=== PATIENT | female | born 1985 | race Hispanic/Latino ===

== ENCOUNTER 2020-02-19 22:52 | Emergency (ER) | payer SELFPAY ==
[2020-02-20] MEDS ORDERED: KETOROLAC 30 MG/ML INJ ONE (00:07)
[2020-02-20 00:11] LABS: Absolute Lymphocytes (CBC) 2.7 K/uL (0.7-4.9); Basophils % 0.5 % (0-1.3); Hematocrit 38.4 % (36.0-45.0); MPV 8.9 fL (7.6-11.3); RBC Red Blood Cell Count 4.06 M/uL (3.86-4.86)
[2020-02-20 00:12] LABS: Protime INR 0.93
[2020-02-20 00:50] LABS: ALT/SGPT 17 U/L (12-78); AST/SGOT 11 U/L (15-37); Albumin 3.6 g/dL (3.4-5.0); Alkaline Phosphatase 60 U/L (45-117); BUN Blood Urea Nitrogen 15 mg/dL (7-18); Bicarbonate 26 mmol/L (21-32); Bilirubin Direct < 0.1 mg/dL (0-0.2); Bilirubin Total 0.1 mg/dL (0.2-1.0); Glucose Level 109 mg/dL (74-106); Magnesium 2.2 mg/dL (1.8-2.4); Potassium 3.7 mmol/L (3.5-5.1); Protein, Total 6.7 g/dL (6.4-8.2); Sodium Level 142 mmol/L (136-145); Troponin (Emerg Dept Use Only) < 0.02 ng/mL (0.0-0.045)
[2020-02-20] MEDS ORDERED: dexAMETHasone 4 MG/ML VIAL ONE (00:53)
[2020-02-20] MEDS ORDERED: ALBUTEROL INHALER 60 PUFF/8 GM IH ONE (00:54)
--- NOTE | 2020-02-20 01:14 | ER ---
Nurse's Notes [facility] Name: Daina Ibrahim Age: 34 yrs Sex: Female : 1985 Arrival Date: 02/19/2020 Time: 22:57 Bed 6 Private MD: Diagnosis: Other chest pain;Acute upper respiratory infection, unspecified Presentation: 02/18 23:09 Chief complaint: Patient states: C/O Sore throat, chest pressure and tightness, cough, wh body aches and hot and cold flushes since wednesday. Coronavirus screen: Client denies travel out of the [place] in the last 14 days. cough unrelated to allergies, sore throat, Client presents with at least one sign or symptom that may indicate coronavirus-19. Standard/surgical mask placed on the client. Ebola Screen: Patient negative for fever greater than or equal to 101.5 degrees Fahrenheit, and additional compatible Ebola Virus Disease symptoms Patient denies exposure to infectious person. Initial Sepsis Screen: Does the patient meet any 2 criteria? No. Patient's initial sepsis screen is negative. Does the patient have a suspected source of infection? Yes: Productive cough/pneumonia. Risk Assessment: Do you want to hurt yourself or someone else? Patient reports no desire to harm self or others. Onset of symptoms was February 19, 2020. 23:09 Method Of Arrival: Ambulatory 23:09 Acuity: KARO 3 [employer]: 23:14 LMP 02/19/2020 Historical: - Allergies: 23:13 Oranges; - Home Meds: 23:13 None [Active]; - PMHx: 23:13 None; - PSHx: 23:13 ; - Immunization history:: Adult Immunizations up to date. - Social history:: Smoking status: Patient reports the use of cigarette tobacco products, smokes one-half pack cigarettes per day, Patient/guardian denies using alcohol. Screenin:14 Abuse screen: Denies threats or abuse. Denies injuries from another. Nutritional screening: No deficits noted. Tuberculosis screening: No symptoms or risk factors identified. Fall Risk None identified. Assessment: 23:13 General: Appears in no apparent distress. Behavior is calm, cooperative, appropriate for age. Pain: Complains of pain in chest Pain does not radiate. Pain currently is 6 out of 10 on a pain scale. Quality of pain is described as pressure, Pain began 2-3 days ago. Neuro: Level of Consciousness is awake, alert, obeys commands, Oriented to person, place, time, situation, Appropriate for age. Cardiovascular: Heart tones S1 S2. Respiratory: Reports cough that is Airway is patent Respiratory effort is even, unlabored, Respiratory pattern is regular, symmetrical, Breath sounds are clear bilaterally. GI: Abdomen is flat, non-distended. : No signs and/or symptoms were reported regarding the genitourinary system. EENT: Throat is pink. Derm: Skin is intact, is healthy with good turgor, Skin is pink, warm \T\ dry. normal. Musculoskeletal: Circulation, motion, and sensation intact. 02/19 00:30 Reassessment: Patient appears in no apparent distress at this time. No changes from previously documented assessment. Patient and/or family updated on plan of care and expected duration. Pain level reassessed. Patient is alert, oriented x 3, equal unlabored respirations, skin warm/dry/pink. 01:32 Reassessment: Patient appears in no apparent distress at this time. Patient and/or family updated on plan of care and expected duration. Pain level reassessed. Patient is alert, oriented x 3, equal unlabored respirations, skin warm/dry/pink. Vital Signs: 02/18 23:09 BP 108 / 67; Pulse 71; Resp 18; Temp 98.4; Pulse Ox 100% on R/A; Weight 73.48 kg; Height 5 ft. 5 in. (165.10 cm); Pain 6/10; 02/19 00:30 BP 109 / 68; Pulse 58; Resp 18; Pulse Ox 99% on R/A; 01:33 BP 105 / 68; Pulse 66; Resp 18; Pulse Ox 100% on R/A; 02/18 23:09 Body Mass Index 26.96 (73.48 kg, 165.10 cm) ED Course: 02/18 22:57 Patient arrived in ED. bp1 23:09 Radhames Madrid is Primary Nurse. wh 23:12 Triage completed. wh 23:14 Patient has correct armband on for positive identification. Bed in low position. Call light in reach. Side rails up X 1. manager integration on. Pulse ox on. NIBP on. 23:14 Arm band placed on right wrist. 23:29 Beto Robles PA is PHCP. cp 23:29 Maxwell Zazueta MD is Attending Physician. cp 23:50 Inserted saline lock: 20 gauge in right antecubital area, using aseptic technique. ds4 Blood collected. 02/19 00:12 XRAY Chest (1 view) In Process Unspecified. EDNH 01:33 No provider procedures requiring assistance completed. IV discontinued, intact, bleeding controlled, No redness/swelling at site. Administered Medications: 02/18 23:59 Drug: TORadol - Ketorolac 15 mg Route: IVP; Site: right antecubital; 02/19 01:34 Follow up: Response: No adverse reaction; Pain is decreased 00:45 Drug: Decadron - Dexamethasone 6 mg Route: IVP; Site: right antecubital; 01:34 Follow up: Response: No adverse reaction 00:45 Drug: Albuterol HFA Inhaler 2 puffs Route: Inhalation; Outcome: 01:13 Discharge ordered by . cp 01:33 Discharged to home ambulatory. 01:33 Condition: stable 01:33 Discharge instructions given to patient, Instructed on discharge instructions, follow up and referral plans. medication usage, POC Demonstrated understanding of instructions, follow-up care, medications, POC Prescriptions given X 4. 01:34 Patient left the ED. Addendum: 02/22/2020 12:00 Addendum: COVID-19 Result: Negative result given to RN to notify pt. Notified pt of a a5 negative COVID 19 swab results. Pt advised that even with a negative test result they should remain in isolation until symptom free for 3 days without medication. Pt also advised to return to the ED for worsening symptoms. Signatures: Dispatcher [employer] EDMS Job Vergara RN RN sg Calderon, Audri, RN RN Cristhian Llamas ds4 Beto Robles PA PA cp Habalo, Radhames Marilu Ramírez bp1
--- NOTE | 2020-02-20 01:14 | EDPHYS ---
Physician Documentation [facility] Name: Daina Ibrahim Age: 34 yrs Sex: Female : 1985 Arrival Date: 02/19/2020 Time: 22:57 Bed 6 Private MD: ED Physician Maxwell Zazueta HPI: 02/18 23:50 This 34 yrs old Female presents to ER via Ambulatory with complaints of Sore Throat, cp Chest Tightness, Chest Pressure. 23:50 The patient or guardian reports chest pain that is located primarily in the anterior cp chest and left lower chest. The pain radiates to back. 23:50 Associated signs and symptoms: Pertinent positives: cough, shortness of breath, sore cp throat, Pertinent negatives: abdominal pain, lower extremity pain, lower extremity swelling. The chest pain is described as tightness. Duration: The patient or guardian reports a single episode, that is still ongoing, and worsening. Modifying factors: the symptoms are aggravated by deep breath, movement, cough. CDC ASSOCIATE: 23:14 LMP 02/19/2020 Historical: - Allergies: 23:13 Oranges; - Home Meds: 23:13 None [Active]; - PMHx: 23:13 None; - PSHx: 23:13 ; - Immunization history:: Adult Immunizations up to date. - Social history:: Smoking status: Patient reports the use of cigarette tobacco products, smokes one-half pack cigarettes per day, Patient/guardian denies using alcohol. ROS: 23:55 Constitutional: Positive for body aches, chills, fatigue, Negative for fever, poor PO cp intake. 23:55 Eyes: Negative for injury, pain, redness, and discharge. cp 23:55 ENT: Positive for sore throat, Negative for drainage from ear(s), ear pain, difficulty swallowing, difficulty handling secretions. 23:55 Neck: Negative for pain with movement, pain at rest, stiffness. 23:55 Cardiovascular: Positive for chest pain, Negative for edema, palpitations. 23:55 Respiratory: Positive for cough, shortness of breath, on exertion. Negative for wheezing. 23:55 Abdomen/GI: Negative for abdominal pain, vomiting, diarrhea, constipation. 23:55 Back: Negative for radiated pain. 23:55 : Negative for urinary symptoms. 23:55 Neuro: Negative for altered mental status, headache, syncope, weakness. 23:55 All other systems are negative. Exam: 23:45 ECG was reviewed by the Attending Physician. cp 23:58 Constitutional: The patient appears in no acute distress, alert, awake, cp non-diaphoretic, non-toxic, well developed, well nourished, uncomfortable. 23:58 Head/Face: Normocephalic, atraumatic. cp 23:58 Eyes: Periorbital structures: appear normal, Conjunctiva: normal, no exudate, no injection, Sclera: no appreciated abnormality, Lids and lashes: appear normal, bilaterally. 23:58 ENT: External ear(s): are unremarkable, Ear canal(s): are normal, clear, TM's: bulging, is not appreciated, bilaterally, dullness, bilaterally, erythema, is not appreciated, bilaterally, Nose: is normal, Mouth: Lips: moist, Oral mucosa: moist, Posterior pharynx: Airway: no evidence of obstruction, patent, Tonsils: no enlargement, no exudate. 23:58 Neck: ROM/movement: is normal, is supple, without pain, no range of motions limitations, no meningismus. 23:58 Chest/axilla: Inspection: normal, Palpation: crepitus, is not appreciated, tenderness, of the left lateral chest wall below breast. 23:58 Cardiovascular: Rate: normal, Rhythm: regular, Heart sounds: murmur, not appreciated, Edema: is not appreciated, JVD: is not appreciated. 23:58 Respiratory: the patient does not display signs of respiratory distress, Respirations: normal, no use of accessory muscles, no retractions, labored breathing, is not present, Breath sounds: decreased breath sounds, are not appreciated, stridor, is not appreciated, wheezing: is not appreciated. 23:58 Abdomen/GI: Inspection: abdomen appears normal, Palpation: abdomen is soft and non-tender, in all quadrants. 23:58 Back: pain, is absent, ROM is normal. Vital Signs: 23:09 BP 108 / 67; Pulse 71; Resp 18; Temp 98.4; Pulse Ox 100% on R/A; Weight 73.48 kg; wh Height 5 ft. 5 in. (165.10 cm); Pain 6/10; 10/20 00:30 BP 109 / 68; Pulse 58; Resp 18; Pulse Ox 99% on R/A; 01:33 BP 105 / 68; Pulse 66; Resp 18; Pulse Ox 100% on R/A; 02/18 23:09 Body Mass Index 26.96 (73.48 kg, 165.10 cm) MDM: 02/18 23:38 Patient medically screened. 02/19 00:00 Differential diagnosis: abnormal EKG, acute myocardial infarction, acute pericarditis, cp chest wall pain, cholecystitis, Cholelithiasis costochondritis, pericarditis, pleurisy, pneumonia, pneumothorax, pulmonary embolus, COVID-19, influenza, strep. 01:12 Data reviewed: vital signs, nurses notes, lab test result(s), EKG, radiologic studies, cp plain films, and as a result, I will discharge patient. 01:12 Test interpretation: by ED physician or midlevel provider: ECG, chest xray negative for cp focal opacities. Counseling: I had a detailed discussion with the patient and/or guardian regarding: the historical points, exam findings, and any diagnostic results supporting the discharge/admit diagnosis, lab results, radiology results, the need for outpatient follow up, a family practitioner, to return to the emergency department if symptoms worsen or persist or if there are any questions or concerns that arise at home. Response to treatment: the patient's symptoms have markedly improved after treatment. ED course: VSS. Patient appears non-toxic and no signs of respiratory distress. Will discharge to home with instructions to quarantine while awaiting results of COVID-19 test. 02/18 23:41 Order name: Basic Metabolic Panel; Complete Time: 00:56 02/19 01:09 Interpretation: Normal except: CL 111; GLUC 109. cp 02/18 23:41 Order name: CBC with Diff; Complete Time: 00:33 cp 02/19 00:33 Interpretation: Reviewed. 02/18 23:41 Order name: LFT's; Complete Time: 00:56 02/19 01:09 Interpretation: Normal except: AST 11; BILIT 0.1. 02/18 23:41 Order name: Magnesium; Complete Time: 00:56 02/18 23:41 Order name: PT-INR; Complete Time: 01:09 cp 02/19 01:09 Interpretation: Reviewed. 02/18 23:41 Order name: Troponin (emerg Dept Use Only); Complete Time: 00:56 cp 02/19 01:10 Interpretation: Within normal limits: TROPED < 0.02. cp 02/18 23:41 Order name: COVID-19 cp 02/18 23:41 Order name: Influenza Screen (a \T\ B) cp 02/18 23:41 Order name: Strep cp 02/19 00:48 Order name: LAB Add On 02/19 00:49 Order name: Urine Dipstick--Ancillary (enter results) mw2 02/19 00:49 Order name: Urine Dipstick-Ancillary EDMS 02/19 00:53 Order name: D-Dimer; Complete Time: 01:09 EDMS 02/19 01:09 Interpretation: Reviewed. 02/18 23:41 Order name: XRAY Chest (1 view) 02/18 23:41 Order name: EKG; Complete Time: 23:42 cp 02/18 23:41 Order name: Cardiac monitoring; Complete Time: 23:51 cp 02/18 23:41 Order name: EKG - Nurse/Tech; Complete Time: 23:51 cp 02/18 23:41 Order name: IV Saline Lock; Complete Time: 23:51 cp 02/18 23:41 Order name: Labs collected and sent; Complete Time: 23:51 cp 02/18 23:41 Order name: O2 Per Protocol; Complete Time: 23:51 cp 02/18 23:41 Order name: O2 Sat Monitoring; Complete Time: 23:51 cp 02/18 23:41 Order name: Urine Dipstick-Ancillary (obtain specimen); Complete Time: 00:39 cp 02/18 23:41 Order name: Urine Test (obtain specimen); Complete Time: 00:39 cp 02/19 01:13 Order name: Throat Culture EDMS EC/19 23:45 Rate is 65 beats/min. Rhythm is regular. IL interval is normal. QRS interval is normal. cp QT interval is normal. T waves are Inverted in lead aVR. Interpreted by me. Reviewed by me. Administered Medications: 23:59 Drug: TORadol - Ketorolac 15 mg Route: IVP; Site: right antecubital; 02/19 01:34 Follow up: Response: No adverse reaction; Pain is decreased 00:45 Drug: Decadron - Dexamethasone 6 mg Route: IVP; Site: right antecubital; 01:34 Follow up: Response: No adverse reaction 00:45 Drug: Albuterol HFA Inhaler 2 puffs Route: Inhalation; Disposition: 01:37 Co-signature as Attending Physician, Maxwell Zazueta MD. pkl Disposition: 02/20/20 01:13 Discharged to Home. Impression: Other chest pain, Acute upper respiratory infection, unspecified. - Condition is Stable. - Discharge Instructions: Nonspecific Chest Pain, Upper Respiratory Infection, Adult, COVID-19. - Prescriptions for dexamethasone 2 mg Oral tablet - take 1 tablet by ORAL route 3 times per day for 5 days; 15 tablet. Tessalon Perles 100 mg Oral Capsule - take 2 capsule by ORAL route every 8 hours As needed; 20 capsule. Zithromax Z- Arjun 250 mg Oral Tablet - take 1 tablet by ORAL route as directed for 5 days Day 1 - take two (2) tablets one time. Day 2, 3, 4 , 5 take one (1) tablet once daily.; 6 tablet. Albuterol Sulfate 90 mcg/actuation - inhale 1-2 puff by INHALATION route every 4-6 hours; 1 Inhaler. - Medication Reconciliation Form, Thank You Letter, Antibiotic Education, Prescription Opioid Use, Work release form form. - Follow up: Private Physician; When: 2 - 3 days; Reason: Recheck today's complaints. - Problem is new. - Symptoms have improved. Signatures: Dispatcher [employer] Job Baires RN RN sg Lam, Pin, MD MD pkl Beto Robles PA PA cp Habalo, Winsy Corrections: (The following items were deleted from the chart) 00:52 00:49 D-DIMER+COAG.LAB.BRZ ordered. [facility] 01:34 01:13 02/20/2020 01:13 Discharged to Home. Impression: Other chest pain; Acute upper wh respiratory infection, unspecified. Condition is Stable. Forms are Medication Reconciliation Form, Thank You Letter, Antibiotic Education, Prescription Opioid Use. Follow up: Private Physician; When: 2 - 3 days; Reason: Recheck today's complaints. Problem is new. Symptoms have improved. cp
[2020-02-20 01:41] VITALS: TEMP 98.4
[2020-02-20 01:45] VITALS: BP 105/68; O2SAT 100
[2020-02-20 01:59] LABS: Urine Blood 3+ (NEG); Urine Glucose NEGATIVE (NEG); Urine Protein NEGATIVE (NEG); Urine Specific Gravity >1.030 (1.005-1.030)
--- NOTE | 2020-02-20 09:01 | RAD REPORT ---
EXAM DESCRIPTION: RAD - Chest Single View - 02/20/2020 12:00 am CLINICAL HISTORY: Cough;Chest pain;SOB Chest pain. COMPARISON: No comparisons FINDINGS: Portable technique limits examination quality. The lungs are grossly clear. The heart is normal in size. No displaced fractures. IMPRESSION: No acute intrathoracic process suspected.
--- NOTE | 2020-02-20 16:09 | EKG ---
Test Date: 2020-02-19 Test Time: 23:07:19 Policy Loan Calculator: MEASUREMENT RESULTS: Intervals: Rate: 65 KS: 148 QRSD: 82 QT: 386 QTc: 401 [place]: P: 31 KS: 148 QRS: 76 T: 60 INTERPRETIVE STATEMENTS: Normal sinus rhythm Normal ECG No previous ECG available for comparison Electronically Signed On 02-20-20 16:07:56 CDT by Jameel Holliday
== END 2020-02-20 01:34 | disposition home or self-care (01) ==
LOC: ER 22:52
DX: J06.9 Acute upper respiratory infection, unspecified (principal); Z20.828 Contact with and (suspected) exposure to other viral communicable diseases; F17.210 Nicotine dependence, cigarettes, uncomplicated; Z91.018 Allergy to other foods
CPT/HCPCS: 36415; 71045; 80048; 80076; 81003; 83735; 84484; 85025; 85379; 85610; 87070; 87081; 87804; 93005; 96374; 96375; 99285; J1100; U0002

== ENCOUNTER 2020-03-20 08:29 | Emergency (ER) | payer SELFPAY ==
[2020-03-20] MEDS ORDERED: KETOROLAC 30 MG/ML INJ ONE (09:24)
--- NOTE | 2020-03-20 09:54 | RAD REPORT ---
EXAM DESCRIPTION: US - Extremity Nonvascular Limited - 03/20/2020 9:32 am CLINICAL HISTORY: left breast, r/o abscess;Pain;Swelling COMPARISON: No comparisons FINDINGS: Periareolar left breast sonography was performed. Patient has a history of left breast abs cess now with palpable abnormality in the 6 o'clock periareolar left breast. Limited sonographic evaluation shows a 2-2.5 centimeter mass in the retroareolar 6 o'clock left breas t. This is slightly hypoechoic to the surrounding breast tissue. Doppler evaluation shows increased v ascularity along the periphery of this mass. No definitive blood flow within the central substance of this mass. On cine loop imaging there is some movement within this mass. Given the patient history this is probably isoechoic to hypoechoic inflammatory or infectious debris rather than a solid mass. A mixed component of abscess or inflammatory debris plus scar tissue from p rior abscess would be possible. IMPRESSION: A 2-2.5 centimeter mass retro air realtor 6 o'clock left breast at the skin service is p resent matching the palpable abnormality. As detailed above, this is probably infectious/inflammatory debris and some possible scar tissue rath er than a solid mass.
--- NOTE | 2020-03-20 10:01 | ER ---
Nurse's Notes [facility] Name: Daina Ibrahim Age: 34 yrs Sex: Female : 1985 Arrival Date: 03/20/2020 Time: 08:44 Bed 6 Private MD: Diagnosis: Local infection of the skin and subcutaneous tissue, unspecified Presentation: 03/20 08:50 Chief complaint: Patient states: knot on left breast since Wednesday, not draining, no iw fever. Coronavirus screen: At this time, the client does not indicate any symptoms associated with coronavirus-19. Ebola Screen: Patient negative for fever greater than or equal to 101.5 degrees Fahrenheit, and additional compatible Ebola Virus Disease symptoms Patient denies exposure to infectious person. Patient denies travel to an Ebola-affected area in the 21 days before illness onset. No symptoms or risks identified at this time. Initial Sepsis Screen: Does the patient meet any 2 criteria? No. Patient's initial sepsis screen is negative. Does the patient have a suspected source of infection? No. Patient's initial sepsis screen is negative. Risk Assessment: Do you want to hurt yourself or someone else? Patient reports no desire to harm self or others. Onset of symptoms was March 17, 2020. 08:50 Method Of Arrival: Ambulatory iw 08:50 Acuity: KARO 3 iw Historical: - Allergies: 08:52 ORANGES; iw - Home Meds: 08:52 None [Active]; iw - PMHx: 08:52 None; iw - PSHx: 08:52 ; iw - Immunization history:: Adult Immunizations not up to date. - Social history:: Smoking status: Patient reports the use of cigarette tobacco products, smokes one-half pack cigarettes per day. Screenin:10 Abuse screen: Denies threats or abuse. Denies injuries from another. Nutritional jl7 screening: No deficits noted. Tuberculosis screening: No symptoms or risk factors identified. Fall Risk None identified. Assessment: 09:10 General: Appears in no apparent distress. uncomfortable, Behavior is calm, cooperative, jl7 appropriate for age. Pain: Complains of pain in left breast Pain currently is 7 out of 10 on a pain scale. at worst was 10 out of 10 on a pain scale. Neuro: Level of Consciousness is awake, alert, obeys commands, Oriented to person, place, time, situation. Cardiovascular: Patient's skin is warm and dry. Respiratory: Airway is patent Respiratory effort is even, unlabored, Respiratory pattern is regular, symmetrical. Derm: Skin is pink, warm \T\ dry. Abscess located on left breast is hot to touch, is red, No head noted, hard under skin on palpation, pt has history of left breast abscess x 2 from October 2019 that burst leaving scars. 09:46 Reassessment: Awaiting US results. jl7 10:03 Reassessment: ERP at bedside discussing results and POC. jl7 Vital Signs: 08:50 BP 115 / 75; Pulse 91; Resp 16; Temp 97.9; Pulse Ox 100% on R/A; Weight 75.75 kg; iw Height 5 ft. 5 in. (165.10 cm); Pain 6/10; 08:50 Body Mass Index 27.79 (75.75 kg, 165.10 cm) iw ED Course: 08:44 Patient arrived in ED. ag5 08:52 Triage completed. iw 08:53 Arm band placed on. iw 09:00 Osman Waldrop, RAMIRO is Primary Nurse. jl7 09:05 Erika Abbott FNP-C is PHCP. kb 09:05 Sohan Rodriguez MD is Attending Physician. kb 09:10 Patient has correct armband on for positive identification. Placed in gown. Bed in low jl7 position. Call light in reach. Side rails up X 1. Pulse ox on. NIBP on. 09:24 US Extrmty Nonvasular Limited In Process Unspecified. EDMS 10:08 No provider procedures requiring assistance completed. Patient did not have IV access jl7 during this emergency room visit. Administered Medications: 09:16 Drug: TORadol 30 mg Route: IM; Site: right deltoid; jl7 Outcome: 10:00 Discharge ordered by . kb 10:08 Discharged to home ambulatory. jl7 10:08 Condition: stable 10:08 Discharge instructions given to patient, Instructed on discharge instructions, follow up and referral plans. medication usage, Demonstrated understanding of instructions, follow-up care, medications, Prescriptions given X 1. 10:09 Patient left the ED. jl7 Signatures: Dispatcher [employer] EDMN Erika Abbott FNP-C FNP-Ckb Williams, Irene, RN RN Osman Waldrop RN RN jl7 Gricel Weldon ag5
--- NOTE | 2020-03-20 10:01 | EDPHYS ---
Physician Documentation [facility] Name: Daina Ibrahim Age: 34 yrs Sex: Female : 1985 Arrival Date: 03/20/2020 Time: 08:44 Bed 6 Private MD: ED Physician Sohan Rodriguez HPI: 03/20 09:22 This 34 yrs old Female presents to ER via Ambulatory with complaints of Breast kb Pain. 09:22 the patient presents with a swollen area of the left breast. Description: swollen, kb tense, warm. Onset: The symptoms/episode began/occurred 4 day(s) ago. Possible cause(s): unknown. Associated signs and symptoms: Pertinent positives: swelling, Pertinent negatives: discharge, drainage, erythema, foreign body sensation, fever, headache, nausea, shortness of breath, vomiting. Modifying factors: the symptoms are alleviated by nothing, the symptoms are aggravated by pressure, touching. Severity of symptoms: At their worst the symptoms were moderate, in the emergency department the symptoms are unchanged. The patient has experienced a previous episode. The patient has not recently seen a physician. Pt reports breast tenderness and hardening from 3 o'clock to 6 o'clock on left breast that started 4 days ago. States she has had this before and it was a breast tissue infection.. Historical: - Allergies: 08:52 ORANGES; iw - Home Meds: 08:52 None [Active]; iw - PMHx: 08:52 None; iw - PSHx: 08:52 ; iw - Immunization history:: Adult Immunizations not up to date. - Social history:: Smoking status: Patient reports the use of cigarette tobacco products, smokes one-half pack cigarettes per day. ROS: 09:17 Constitutional: Negative for fever, chills, and weight loss, Cardiovascular: Negative kb for chest pain, palpitations, and edema, Respiratory: Negative for shortness of breath, cough, wheezing, and pleuritic chest pain, Abdomen/GI: Negative for abdominal pain, nausea, vomiting, diarrhea, and constipation, MS/Extremity: Negative for injury and deformity, Neuro: Negative for headache, weakness, numbness, tingling, and seizure. 09:17 Skin: Positive for swelling, of the left breast. Exam: 09:17 Constitutional: This is a well developed, well nourished patient who is awake, alert, kb and in no acute distress. Head/Face: Normocephalic, atraumatic. Cardiovascular: Regular rate and rhythm with a normal S1 and S2. No gallops, murmurs, or rubs. Normal PMI, no JVD. No pulse deficits. Respiratory: Lungs have equal breath sounds bilaterally, clear to auscultation and percussion. No rales, rhonchi or wheezes noted. No increased work of breathing, no retractions or nasal flaring. Abdomen/GI: Soft, non-tender, with normal bowel sounds. No distension or tympany. No guarding or rebound. No evidence of tenderness throughout. MS/ Extremity: Pulses equal, no cyanosis. Neurovascular intact. Full, normal range of motion. Neuro: Awake and alert, GCS 15, oriented to person, place, time, and situation. Cranial nerves II-XII grossly intact. Motor strength 5/5 in all extremities. Sensory grossly intact. Cerebellar exam normal. Normal gait. 09:17 Skin: induration, that is moderate is noted, located on the left breast. 09:20 Chest/axilla: Inspection: normal, Breasts: mass(es), that is moderate-sized, in the kb left breast, that is tender, tenderness, that is moderate, of the left breast. Vital Signs: 08:50 BP 115 / 75; Pulse 91; Resp 16; Temp 97.9; Pulse Ox 100% on R/A; Weight 75.75 kg; iw Height 5 ft. 5 in. (165.10 cm); Pain 6/10; 08:50 Body Mass Index 27.79 (75.75 kg, 165.10 cm) iw MDM: 09:05 Patient medically screened. kb 09:20 Data reviewed: vital signs, nurses notes. Data interpreted: Pulse oximetry: on room air kb is 100 %. Interpretation: normal. 09:59 Counseling: I had a detailed discussion with the patient and/or guardian regarding: the historical points, exam findings, and any diagnostic results supporting the discharge/admit diagnosis, radiology results, the need for outpatient follow up, a family practitioner, to return to the emergency department if symptoms worsen or persist or if there are any questions or concerns that arise at home. 03/20 09:09 Order name: Extrmty Nonvasular Limited; Complete Time: 09:58 kb Administered Medications: 09:16 Drug: TORadol 30 mg Route: IM; Site: right deltoid; jl7 Disposition: 18:06 Co-signature as Attending Physician, Sohan Rodriguez MD I agree with the assessment and kdr plan of care. Disposition: 03/20/20 10:00 Discharged to Home. Impression: Local infection of the skin and subcutaneous tissue, unspecified. - Condition is Stable. - Discharge Instructions: Cellulitis, Adult, [id number]. - Prescriptions for Bactrim DS 800- 160 mg Oral Tablet - take 1 tablet by ORAL route every 12 hours for 10 days; 20 tablet. - Medication Reconciliation Form, Thank You Letter, Antibiotic Education, Prescription Opioid Use form. - Follow up: Emergency Department; When: As needed; Reason: Worsening of condition. Follow up: Private Physician; When: 2 - 3 days; Reason: Recheck today's complaints, Continuance of care, Re-evaluation by your physician. Signatures: Dispatcher [employer] EDMS Erika Abbott, KELSI-Adrianna PEDIATRIC LPN-Sohan Sauceda MD MD kdr Frida Garcia RN RN iw Osman Waldrop RN RN jl7 Corrections: (The following items were deleted from the chart) 09:21 09:17 Constitutional: This is a well developed, well nourished patient who is awake, kb alert, and in no acute distress. Head/Face: Normocephalic, atraumatic. Chest/axilla: Normal chest wall appearance and motion. Nontender with no deformity. No lesions are appreciated. Cardiovascular: Regular rate and rhythm with a normal S1 and S2. No gallops, murmurs, or rubs. Normal PMI, no JVD. No pulse deficits. Respiratory: Lungs have equal breath sounds bilaterally, clear to auscultation and percussion. No rales, rhonchi or wheezes noted. No increased work of breathing, no retractions or nasal flaring. Abdomen/GI: Soft, non-tender, with normal bowel sounds. No distension or tympany. No guarding or rebound. No evidence of tenderness throughout. MS/ Extremity: Pulses equal, no cyanosis. Neurovascular intact. Full, normal range of motion. Neuro: Awake and alert, GCS 15, oriented to person, place, time, and situation. Cranial nerves II-XII grossly intact. Motor strength 5/5 in all extremities. Sensory grossly intact. Cerebellar exam normal. Normal gait. kb 10:09 10:00 03/20/2020 10:00 Discharged to Home. Impression: Local infection of the skin and jl7 subcutaneous tissue, unspecified. Condition is Stable. Forms are Medication Reconciliation Form, Thank You Letter, Antibiotic Education, Prescription Opioid Use. Follow up: Emergency Department; When: As needed; Reason: Worsening of condition. Follow up: Private Physician; When: 2 - 3 days; Reason: Recheck today's complaints, Continuance of care, Re-evaluation by your physician. kb
[2020-03-20 12:56] VITALS: BP 115/75; TEMP 97.9; O2SAT 100
== END 2020-03-20 10:09 | disposition home or self-care (01) ==
LOC: ER 08:29
DX: L08.9 Local infection of the skin and subcutaneous tissue, unspecified (principal); F17.210 Nicotine dependence, cigarettes, uncomplicated; Z91.018 Allergy to other foods
CPT/HCPCS: 76882; 96372; 99284

== ENCOUNTER 2020-03-31 15:12 | Emergency (ER) | payer SELFPAY ==
[2020-03-31] MEDS ORDERED: LIDOCAINE 1% 20 ML MDV ONE (16:20)
--- NOTE | 2020-03-31 16:37 | ER ---
Nurse's Notes [facility] Name: Daina Ibrahim Age: 34 yrs Sex: Female : 1985 Arrival Date: 03/31/2020 Time: 15:13 Bed 5 Private MD: Diagnosis: Cutaneous abscess of chest wall-left breast Presentation: 03/31 15:52 Chief complaint: Patient states: abscess to left breast X 2 weeks, has been on abx but iw has not resolved , pain and swelling has increased. Coronavirus screen: At this time, the client does not indicate any symptoms associated with coronavirus-19. Ebola Screen: Patient negative for fever greater than or equal to 101.5 degrees Fahrenheit, and additional compatible Ebola Virus Disease symptoms Patient denies exposure to infectious person. Patient denies travel to an Ebola-affected area in the 21 days before illness onset. No symptoms or risks identified at this time. Initial Sepsis Screen: Does the patient meet any 2 criteria? No. Patient's initial sepsis screen is negative. Does the patient have a suspected source of infection? No. Patient's initial sepsis screen is negative. Risk Assessment: Do you want to hurt yourself or someone else? Patient reports no desire to harm self or others. Onset of symptoms was March 17, 2020. 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 - Social history:: Smoking status: Patient reports the use of cigarette tobacco products, smokes one-half pack cigarettes per day. Screenin:50 Abuse screen: Denies threats or abuse. Nutritional screening: No deficits noted. tw2 Tuberculosis screening: No symptoms or risk factors identified. Fall Risk None identified. 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 General: Appears tw2 in no apparent distress. slender, well groomed, Behavior is calm, cooperative, appropriate for age. Pain: Complains of pain in left nipple and left breast. Neuro: Level of Consciousness is awake, alert, obeys commands, Oriented to person, place, time, situation. Cardiovascular: Heart tones S1 S2 Patient's skin is warm and dry. Respiratory: Airway is patent Respiratory effort is even, unlabored, Respiratory pattern is regular, symmetrical, Breath sounds are clear bilaterally. GI: No signs and/or symptoms were reported involving the gastrointestinal system. Abdomen is flat, Bowel sounds present X 4 quads. : No signs and/or symptoms were reported regarding the genitourinary system. EENT: No signs and/or symptoms were reported regarding the EENT system. Derm: Abscess located on left breast. Derm: Reports increased redness and swelling noted to LEFT breast. Musculoskeletal: Range of motion: intact in all extremities. 16:47 Reassessment: Patient appears in no apparent distress at this time. No changes from tw2 previously documented assessment. Patient and/or family updated on plan of care and expected duration. Pain level reassessed. Patient is alert, oriented x 3, equal unlabored respirations, skin warm/dry/pink. Vital Signs: 15:52 BP 115 / 63; Pulse 105; Resp 16 S; Temp 98.3; Pulse Ox 98% on R/A; Weight 75.75 kg; iw Height 5 ft. 5 in. (165.10 cm); Pain 7/10; 16:14 BP 102 / 62; Pulse 86; Resp 17; Pulse Ox 96% on R/A; tw2 16:47 BP 120 / 75; Pulse 83; Resp 17; Pulse Ox 98% on R/A; tw2 15:52 Body Mass Index 27.79 (75.75 kg, 165.10 cm) iw ED Course: 15:13 Patient arrived in ED. as 15:22 Erika Abbott FNP-C is PHCP. kb 15:22 Khris Luna MD is Attending Physician. kb 15:47 Placed in gown. Bed in low position. Pulse ox on. NIBP on. tw2 15:50 Kimberley Foreman RN is Primary Nurse. tw2 15:50 Arm band placed on. tw2 15:54 Triage completed. iw 16:25 Assist provider with I \T\ D: of an abscess on left breast Set up I\T\D tray. Performed by jorge 7 Erika REVELES Culture sent to lab. Wound packed. iodoform gauze, Dressing with 4X4s, tape Patient tolerated well. 16:45 Patient did not have IV access during this emergency room visit. jl7 Administered Medications: 16:27 Drug: Lidocaine (1 %) 1 vials {Note: by KELSI James.} Volume: 5 ml; Route: tw2 Infiltration; 16:44 Drug: Bactrim (160 mg-800 mg (DS) 1 tablet Route: PO; jl7 16:44 Follow up: Response: Medication administered at discharge. jl7 16:44 Drug: KeFLEX 500 mg Route: PO; jl7 16:44 Follow up: Response: Medication administered at discharge. jl7 16:44 Drug: [place] 10 mg-325 mg 1 tabs Route: PO; jl7 16:44 Follow up: Response: Medication administered at discharge. jl7 Outcome: 16:36 Discharge ordered by MD. 16:46 Discharged to home ambulatory. tw2 16:46 Condition: stable 16:46 Discharge instructions given to patient, Instructed on discharge instructions, follow up and referral plans. no drinking with medication, no driving heavy equipment, medication usage, wound care, Demonstrated understanding of instructions, follow-up care, medications, wound care, Prescriptions given X 3. 16:47 Patient left the ED. tw2 Signatures: Erika Abbott, ABDIRIZAK DOLAN-Andria Bradford Irene, Kimberley Leong RN, RN RN tw2 Osman Waldrop RN RN jl7
--- NOTE | 2020-03-31 16:37 | EDPHYS ---
Physician Documentation [facility] Name: Daina Ibrahim Age: 34 yrs Sex: Female : 1985 Arrival Date: 03/31/2020 Time: 15:13 Bed 5 Private MD: ED Physician Khris Luna HPI: 03/31 16:17 This 34 yrs old Female presents to ER via Ambulatory with complaints of Breast kb Problem - antibiotics not working. 16:18 The patient presents with an abscess of the left breast. Description: swollen, warm. kb Onset: The symptoms/episode began/occurred 2 week(s) ago. Possible cause(s): unknown. Associated signs and symptoms: Pertinent positives: swelling. Modifying factors: the symptoms are alleviated by nothing, the symptoms are aggravated by pressure, touching. Severity of symptoms: At their worst the symptoms were moderate, in the emergency department the symptoms are unchanged. The patient has experienced a previous episode. The patient has been recently seen at the [facility] Emergency Department, a couple of weeks ago, for similar complaints was given a prescription for antibiotics. Pt reports abscess to left breast that started 2 weeks ago. Was seen here by me 11 days ago and prescribed bactrim for 10 days. Pt had induration with no fluctuance at that time. Pt reports she completed the antibiotics, but the abscess didn't go away and now it feels like a blister that is going to pop. 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 - Social history:: Smoking status: Patient reports the use of cigarette tobacco products, smokes one-half pack cigarettes per day. ROS: 16:16 Constitutional: Negative for fever, chills, and weight loss, Cardiovascular: Negative kb for chest pain, palpitations, and edema, Respiratory: Negative for shortness of breath, cough, wheezing, and pleuritic chest pain, Abdomen/GI: Negative for abdominal pain, nausea, vomiting, diarrhea, and constipation, MS/Extremity: Negative for injury and deformity, Neuro: Negative for headache, weakness, numbness, tingling, and seizure. 16:16 Skin: Positive for abscess, of the left breast. Exam: 16:16 Constitutional: This is a well developed, well nourished patient who is awake, alert, kb and in no acute distress. Head/Face: Normocephalic, atraumatic. Chest/axilla: Normal chest wall appearance and motion. Nontender with no deformity. No lesions are appreciated. Cardiovascular: Regular rate and rhythm with a normal S1 and S2. No gallops, murmurs, or rubs. Normal PMI, no JVD. No pulse deficits. Respiratory: Lungs have equal breath sounds bilaterally, clear to auscultation and percussion. No rales, rhonchi or wheezes noted. No increased work of breathing, no retractions or nasal flaring. Abdomen/GI: Soft, non-tender, with normal bowel sounds. No distension or tympany. No guarding or rebound. No evidence of tenderness throughout. MS/ Extremity: Pulses equal, no cyanosis. Neurovascular intact. Full, normal range of motion. Neuro: Awake and alert, GCS 15, oriented to person, place, time, and situation. Cranial nerves II-XII grossly intact. Motor strength 5/5 in all extremities. Sensory grossly intact. Cerebellar exam normal. Normal gait. 16:16 Skin: abscess, that is moderate sized, of the left breast, with fluctuance, that is marked. Vital Signs: 15:52 BP 115 / 63; Pulse 105; Resp 16 S; Temp 98.3; Pulse Ox 98% on R/A; Weight 75.75 kg; iw Height 5 ft. 5 in. (165.10 cm); Pain 7/10; 16:14 BP 102 / 62; Pulse 86; Resp 17; Pulse Ox 96% on R/A; tw2 16:47 BP 120 / 75; Pulse 83; Resp 17; Pulse Ox 98% on R/A; tw2 15:52 Body Mass Index 27.79 (75.75 kg, 165.10 cm) iw Procedures: 16:35 I \T\ D: Incision and drainage was performed for an abscess of the right left breast kb Prepped with Betadine, Anesthetized with 2 ml's 1% Lidocaine. Incised with #11 blade. Drained large amount purulent fluid. Packed with iodoform gauze, Dressing: sterile 4x4 gauze, the patient tolerated the procedure well. MDM: 15:23 Patient medically screened. kb 16:16 Data reviewed: vital signs, nurses notes. Data interpreted: Pulse oximetry: on room air kb is 96 %. Interpretation: normal. Counseling: I had a detailed discussion with the patient and/or guardian regarding: the historical points, exam findings, and any diagnostic results supporting the discharge/admit diagnosis, the need for outpatient follow up, a family practitioner, to return to the emergency department if symptoms worsen or persist or if there are any questions or concerns that arise at home. 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 kb 03/31 16:14 Order name: Wound Culture tw2 03/31 16:05 Order name: I\T\D Setup; Complete Time: 16:14 kb Administered Medications: 16:27 Drug: Lidocaine (1 %) 1 vials {Note: by KELSI James.} Volume: 5 ml; Route: tw2 Infiltration; 16:44 Drug: Bactrim (160 mg-800 mg (DS) 1 tablet Route: PO; jl7 16:44 Follow up: Response: Medication administered at discharge. jl7 16:44 Drug: KeFLEX 500 mg Route: PO; jl7 16:44 Follow up: Response: Medication administered at discharge. jl7 16:44 Drug: [place] 10 mg-325 mg 1 tabs Route: PO; jl7 16:44 Follow up: Response: Medication administered at discharge. jl7 Disposition: 16:52 Co-signature as Attending Physician, Khris Luna MD. rn Disposition: 03/31/20 16:36 Discharged to Home. Impression: Cutaneous abscess of chest wall - left breast. - Condition is Stable. - Discharge Instructions: Incision and Drainage, Skin Abscess, [id number]. - Prescriptions for Keflex 500 mg Oral Capsule - take 1 capsule by ORAL route every 8 hours for 10 days; 30 capsule. Tylenol- Codeine #3 300-30 mg Oral Tablet - take 2 tablets by ORAL route every 6 hours As needed; 16 tablet. Bactrim DS 800- 160 mg Oral Tablet - take 1 tablet by ORAL route every 12 hours for 10 days; 20 tablet. - Medication Reconciliation Form, Thank You Letter, Antibiotic Education, Prescription Opioid Use form. - Follow up: Emergency Department; When: As needed; Reason: Worsening of condition. Follow up: Private Physician; When: 2 - 3 days; Reason: Recheck today's complaints, Continuance of care, Re-evaluation by your physician. Signatures: Dispatcher [employer] Erika Newman, ABDIRIZAK FERNANDEZP-Frida Harris, RN RN iw Khris Luna MD MD rn Wise, Tara, RN RN tw2 Osman Waldrop RN RN jl7 Corrections: (The following items were deleted from the chart) 16:47 16:36 03/31/2020 16:36 Discharged to Home. Impression: Cutaneous abscess of chest wall tw2 - left breast. Condition is Stable. Forms are Medication Reconciliation Form, Thank You Letter, Antibiotic Education, Prescription Opioid Use. Follow up: Emergency Department; When: As needed; Reason: Worsening of condition. Follow up: Private Physician; When: 2 - 3 days; Reason: Recheck today's complaints, Continuance of care, Re-evaluation by your physician. kb
[2020-03-31] MEDS ORDERED: HYDROCODONE/APAP 10/325 TAB ONE (16:55)
[2020-03-31] MEDS ORDERED: SMZ./TMP. 800/160 MG TABLET ONE (16:56)
[2020-03-31] MEDS ORDERED: CEPHALEXIN 250 MG CAP ONE (16:56)
[2020-03-31 21:28] VITALS: TEMP 98.3
[2020-03-31 21:42] VITALS: BP 120/75; O2SAT 98
== END 2020-03-31 16:47 | disposition home or self-care (01) ==
LOC: ER 15:12
PROC: 0H9U0ZZ Drainage of Left Breast, Open Approach (ICD-10-PCS; principal; 2020-03-31)
DX: N61.1 Abscess of the breast and nipple (principal); F17.210 Nicotine dependence, cigarettes, uncomplicated
CPT/HCPCS: 87070; 87205; 99284

== ENCOUNTER 2020-10-09 10:07 | Emergency (ER) | payer SELFPAY ==
[2020-10-09] MEDS ORDERED: ONDANSETRON 4 MG/2 ML VIAL ONE (10:42)
[2020-10-09] MEDS ORDERED: MORPHINE 4 MG/ML SYR ONE (10:42)
[2020-10-09] MEDS ORDERED: NA CHLORIDE 0.9% 1,000 ML ONE (10:43)
[2020-10-09 11:04] LABS: Hematocrit 41.7 % (36.0-45.0)
[2020-10-09 11:05] LABS: Absolute Lymphocytes (CBC) 1.8 K/uL (0.7-4.9); Basophils % 0.2 % (0-1.3); Lymphocytes % 20.1 % (15.3-44.8); MPV 8.9 fL (7.6-11.3)
[2020-10-09 11:16] LABS: ALT/SGPT 32 U/L (12-78); AST/SGOT 14 U/L (15-37); Albumin 4.1 g/dL (3.4-5.0); Alkaline Phosphatase 67 U/L (45-117); BUN Blood Urea Nitrogen 12 mg/dL (7-18); Bicarbonate 24 mmol/L (21-32); Bilirubin Direct 0.1 mg/dL (0-0.2); Bilirubin Total 0.4 mg/dL (0.2-1.0); Glucose Level 93 mg/dL (74-106); Lipase 59 U/L (73-393); Potassium 4.3 mmol/L (3.5-5.1); Sodium Level 139 mmol/L (136-145)
[2020-10-09] MEDS ORDERED: FENTANYL CITR 100 MCG/2 ML ONE (11:40)
[2020-10-09 12:01] LABS: Urine Blood Negative (Negative); Urine Glucose Negative (Negative); Urine Protein Negative (Negative); Urine Specific Gravity >=1.030 (1.005-1.030); Urine pH 5.5 (5.0-7.0)
[2020-10-09 12:12] LABS: Urine Specific Gravity/Preg >1.030 (1.005-1.030)
--- NOTE | 2020-10-09 12:32 | RAD REPORT ---
EXAM DESCRIPTION: CT - Abdomen Pelvis W Contrast - 10/09/2020 12:13 pm CLINICAL HISTORY: left sided abdominal pain COMPARISON: No comparisons TECHNIQUE: Biphasic, helical CT imaging of the abdomen and pelvis was performed following 100 ml non -ionic IV contrast. No oral contrast administered. All CT scans are performed using dose optimization technique as appropriate and may include automated exposure control or mA/KV adjustment according to patient size. FINDINGS: No suspicious findings in the lung bases. The liver, spleen, and pancreas show no suspicious findings. Gallbladder and biliary tree are also wi thout suspicious finding. No portal vein abnormality. Symmetric renal function is seen with no hydronephrosis or suspicious renal mass. No pyelonephritis o r acute parenchymal process. Urinary bladder is mostly contracted limiting assessment. No gross abnor mality seen. No adrenal abnormalities. No uterus or right ovary abnormality. Patient has a partially involuted 2 centimeter left ovarian cyst. No fallopian tube abnormality seen. No dilated bowel loops or bowel wall thickening. No evidence for appendicitis or other active bowel p rocess. No free air, free fluid or inflammatory stranding. No hernia, mass or bulky lymphadenopathy. No suspicious bony findings. IMPRESSION: Contrast enhanced CT abdomen and pelvis showing no significant or suspicious finding. Patient does have a 2 centimeter partially involuted left ovarian cyst. No associated free fluid or s tranding in the adjacent adnexal tissues.
[2020-10-09] MEDS ORDERED: LEVALBUTEROL 0.63 MG/3 ML NEB ONE (13:24)
[2020-10-09] MEDS ORDERED: EPINEPHRINE INH 0.5 ML VIAL IH ONE (13:24)
--- NOTE | 2020-10-09 13:57 | RAD REPORT ---
EXAM DESCRIPTION: US - Transvaginal Study Probe - 10/09/2020 1:42 pm CLINICAL HISTORY: left sided pelvic pain Pelvic pain. COMPARISON: No comparisons FINDINGS: The uterus is normal in size, shape and echotexture. The uterus measures 8.8 x 5.0 x 4.4 c m. The endometrial stripe measures 10 mm, normal. Both ovaries are normal in size, shape and echotexture. The right ovary measures 2.9 x 2.8 x 1.6 cm. The left ovary measures 3.7 x 2.4 x 2.1 cm. No ovarian or parovarian lesions. No adnexal masses. Normal Doppler blood flow was demonstrated to both ovaries. No significant pelvic ascites. IMPRESSION: Unremarkable study.
--- NOTE | 2020-10-09 14:15 | EDPHYS ---
Physician Documentation [facility] Name: Daina Ibrahim Age: 35 yrs Sex: Female : 1985 Arrival Date: 10/09/2020 Time: 10:10 Bed 13 Private MD: ED Physician Khris Luna HPI: 10/09 10:35 This 35 yrs old Female presents to ER via Ambulatory with complaints of jmm Abdominal Pain, Vomiting/Diarrhea, Dizziness. 10:35 The patient presents with abdominal pain. Onset: The symptoms/episode began/occurred jmm acutely, today. Associated signs and symptoms: Pertinent positives: nausea and vomiting, diarrhea. The symptoms are described as achy, sharp. Modifying factors: The symptoms are alleviated by nothing, the symptoms are aggravated by nothing. The patient has not experienced similar symptoms in the past. 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 - Social history:: Smoking status: Patient reports the use of cigarette tobacco products, smokes one-half pack cigarettes per day. ROS: 10:35 Constitutional: Negative for fever, chills, and weight loss, Cardiovascular: Negative jmm for chest pain, palpitations, and edema, Respiratory: Negative for shortness of breath, cough, wheezing, and pleuritic chest pain. 10:35 Abdomen/GI: Positive for abdominal pain, nausea and vomiting, diarrhea. 10:35 All other systems are negative. Exam: 10:35 Constitutional: This is a well developed, well nourished patient who is awake, alert, jmm and in no acute distress. Head/Face: atraumatic. Eyes: EOMI, no conjunctival erythema appreciated ENT: Moist Mucus Membranes Neck: Trachea midline, Supple Chest/axilla: Normal chest wall appearance and motion. Cardiovascular: Regular rate and rhythm. No edema appreciated Respiratory: Normal respirations, no respiratory distress appreciated 10:35 Back: Normal ROM Skin: General appearance color normal MS/ Extremity: Moves all extremities, no obvious deformities appreciated, no edema noted to the lower extremities Neuro: Awake and alert, normal gait Psych: Behavior is normal, Mood is normal, Patient is cooperative and pleasant 10:35 Abdomen/GI: Inspection: abdomen appears normal, Bowel sounds: normal, Palpation: soft, mild abdominal tenderness, in the left lower quadrant. Vital Signs: 10:16 BP 133 / 79; Pulse 87; Resp 19; Pulse Ox 99% on R/A; Weight 81.65 kg; Height 5 ft. 5 jl7 in. (165.10 cm); Pain 8/10; 11:17 BP 106 / 57; Pulse 70; Resp 17; Pulse Ox 99% on R/A; Pain 8/10; tw2 11:17 Temp 98(TE); tw2 11:50 Pain 6/10; tw2 12:28 BP 108 / 71; Pulse 72; Resp 17; Pulse Ox 100% on R/A; tw2 13:38 BP 116 / 64; Pulse 76; Resp 17; Pulse Ox 98% on R/A; tw2 14:42 BP 118 / 58; Pulse 80; Resp 17; Pulse Ox 100% on R/A; tw2 10:16 Body Mass Index 29.95 (81.65 kg, 165.10 cm) 7 MDM: 10:18 Patient medically screened. [facility] 14:12 Data reviewed: vital signs, nurses notes. Counseling: I had a detailed discussion with zuleyma the patient and/or guardian regarding: the historical points, exam findings, and any diagnostic results supporting the discharge/admit diagnosis, lab results, radiology results, the need for outpatient follow up, to return to the emergency department if symptoms worsen or persist or if there are any questions or concerns that arise at home. ED course: Patient is alert and non toxic in appearance in the ED. Imaging studies negative. Most likely viral illness. Patient advised to follow up with pcp and otherwise given strict return precautions. Patient understood and agrees with the plan of care. . 10/09 10:19 Order name: Basic Metabolic Panel [facility] 10/09 10:19 Order name: CBC with Diff; Complete Time: 11:20 [facility] 10/09 10:19 Order name: Hepatic Function; Complete Time: 11:20 [facility] 10/09 10:19 Order name: Lipase; Complete Time: 11:20 [facility] 10/09 10:20 Order name: Basic Metabolic Panel; Complete Time: 11:20 [facility] 10/09 12:01 Order name: Urine Dipstick-Ancillary; Complete Time: 12:09 [facility] 10/09 11:53 Order name: CT Abd/Pelvis - IV Contrast Only; Complete Time: 12:33 [facility] 10/09 12:01 Order name: Urine --Ancillary (enter results); Complete Time: 12:15 10/09 13:33 Order name: Transvaginal Study Probe; Complete Time: 14:04 [facility] 10/09 10:19 Order name: IV Saline Lock; Complete Time: 10:55 [facility] 10/09 10:19 Order name: Labs collected and sent; Complete Time: 10:55 [facility] 10/09 10:22 Order name: Urine Test (obtain specimen); Complete Time: 12:04 [facility] 10/09 10:22 Order name: Urine Dipstick-Ancillary (obtain specimen); Complete Time: 12:04 [facility] Administered Medications: 10:55 Drug: NS 0.9% 1000 ml Route: IV; Rate: 1 bolus; Site: left antecubital; jd3 12:04 Follow up: Response: No adverse reaction; IV Status: Completed infusion; IV Intake: tw2 1000ml 10:55 Drug: morphine 4 mg Route: IVP; Site: left antecubital; jd3 11:22 Follow up: Response: No adverse reaction; Pain is unchanged, physician notified tw2 10:55 Drug: Zofran (Ondansetron) 4 mg Route: IVP; Site: left antecubital; jd3 11:22 Follow up: Response: No adverse reaction tw2 11:22 Drug: fentaNYL (PF) 50 mcg {Note: RASS 0.} Route: IVP; Site: left antecubital; tw2 11:50 Follow up: Pain 6/10 Adult; Response: No adverse reaction; Pain is decreased tw2 13:35 Drug: Ketorolac 30 mg Route: IVP; Site: left antecubital; tw2 13:56 Follow up: Response: No adverse reaction; Pain is unchanged, physician notified; Pain tw2 is unchanged, pt reports "burning in that area, like a warmness", physician notified Disposition: 15:59 Co-signature as Attending Physician, Khris Luna MD. rn Disposition: 10/09/20 14:14 Discharged to Home. Impression: Generalized abdominal pain. - Condition is Stable. - Discharge Instructions: Abdominal Pain, Adult. - Prescriptions for Zofran ODT 4 mg Oral tablet,disintegrating - place 1 tablet by TRANSLINGUAL route every 4-6 hours; 20 tablet. Bentyl 20 mg Oral Tablet - take 1 tablet by ORAL route every 6 hours As needed; 20 tablet. Carafate 1 gram Oral Tablet - take 1 tablet by ORAL route 4 times per day take on an empty stomach, beginning on waking and last dose at bedtime; 100 tablet. Pepcid 20 mg Oral Tablet - take 1 tablet by ORAL route once daily; 20 tablet. - Medication Reconciliation Form, Thank You Letter, Antibiotic Education, Prescription Opioid Use, Work release form, Family Work Release form. - Follow up: Private Physician; When: 2 - 3 days; Reason: Recheck today's complaints, Continuance of care, Re-evaluation by your physician. Signatures: Dispatcher [employer] [facility] Kun Rosen PA PA jm Khris Luna MD MD rn Kimberley Foreman RN RN tw2 Osman Waldrop RN RN jl7 Moise Ahuja RN RN jd3 Corrections: (The following items were deleted from the chart) 13:33 12:40 Pelvis Complete+US.RAD.BRZ ordered. [facility] 14:43 14:14 10/09/2020 14:14 Discharged to Home. Impression: Generalized abdominal pain. tw2 Condition is Stable. Forms are Medication Reconciliation Form, Thank You Letter, Antibiotic Education, Prescription Opioid Use. Follow up: Private Physician; When: 2 - 3 days; Reason: Recheck today's complaints, Continuance of care, Re-evaluation by your physician. zuleyma
--- NOTE | 2020-10-09 14:15 | ER ---
Nurse's Notes [facility] Name: Daina Ibrahim Age: 35 yrs Sex: Female : 1985 Arrival Date: 10/09/2020 Time: 10:10 Bed 13 Private MD: Diagnosis: Generalized abdominal pain Presentation: 10/09 10:16 Note provider at bedside at this time. tw2 10:16 Chief complaint: Patient states: Sudden left lower abdominal pain with N/V/D this jl7 morning, reports dizziness from pain. Coronavirus screen: Client denies travel out of the [place] in the last 14 days. diarrhea, nausea, vomiting. Client presents with at least one sign or symptom that may indicate coronavirus-19. Standard/surgical mask placed on the client. Provider contacted for isolation considerations. Ebola Screen: No symptoms or risks identified at this time. Initial Sepsis Screen: Does the patient meet any 2 criteria? No. Patient's initial sepsis screen is negative. Does the patient have a suspected source of infection? No. Patient's initial sepsis screen is negative. Risk Assessment: Do you want to hurt yourself or someone else? Patient reports no desire to harm self or others. Onset of symptoms was October 09, 2020. Care prior to arrival: None. 10:16 Method Of Arrival: Ambulatory [facility] 10:16 Acuity: KARO 3 jl7 Triage Assessment: 10:18 General: Appears in no apparent distress. uncomfortable, Behavior is cooperative, jl7 anxious. Pain: Complains of pain in left lower quadrant Pain currently is 8 out of 10 on a pain scale. GI: Reports diarrhea, nausea, vomiting. 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 - Social history:: Smoking status: Patient reports the use of cigarette tobacco products, smokes one-half pack cigarettes per day. Screenin:16 Abuse screen: Denies threats or abuse. Nutritional screening: No deficits noted. tw2 Tuberculosis screening: No symptoms or risk factors identified. Fall Risk None identified. Assessment: 10:13 General: Appears uncomfortable, slender, Behavior is calm, cooperative, appropriate for tw2 age. Pain: Complains of pain in left lower quadrant. Neuro: Level of Consciousness is awake, alert, obeys commands, Oriented to person, place, time, situation. Cardiovascular: Patient's skin is warm and dry. Respiratory: Airway is patent Respiratory effort is even, unlabored, Respiratory pattern is regular, symmetrical. GI: Bowel sounds present X 4 quads. Abdomen is tender to palpation in left lower quadrant Reports lower abdominal pain, diarrhea, nausea, vomiting, that does radiated to LEFT lower back "at times". : No signs and/or symptoms were reported regarding the genitourinary system. EENT: No signs and/or symptoms were reported regarding the EENT system. Derm: No signs and/or symptoms reported regarding the dermatologic system. Musculoskeletal: Range of motion: intact in all extremities. 11:17 Reassessment: No changes from previously documented assessment. Patient and/or family tw2 updated on plan of care and expected duration. Pain level reassessed. Patient is alert, oriented x 3, equal unlabored respirations, skin warm/dry/pink. provider notified. Patient states symptoms have not improved. 12:28 Reassessment: No changes from previously documented assessment. Patient and/or family tw2 updated on plan of care and expected duration. Pain level reassessed. Patient is alert, oriented x 3, equal unlabored respirations, skin warm/dry/pink. 13:07 Reassessment: pt is in US at this time, not available for medication admin or vs. tw2 13:38 Reassessment: No changes from previously documented assessment. Patient and/or family tw2 updated on plan of care and expected duration. Pain level reassessed. Patient is alert, oriented x 3, equal unlabored respirations, skin warm/dry/pink. Patient states symptoms have not improved. 14:42 Reassessment: Patient appears in no apparent distress at this time. Patient and/or tw2 family updated on plan of care and expected duration. Pain level reassessed. Patient is alert, oriented x 3, equal unlabored respirations, skin warm/dry/pink. Patient states feeling better. Vital Signs: 10:16 BP 133 / 79; Pulse 87; Resp 19; Pulse Ox 99% on R/A; Weight 81.65 kg; Height 5 ft. 5 jl7 in. (165.10 cm); Pain 8/10; 11:17 BP 106 / 57; Pulse 70; Resp 17; Pulse Ox 99% on R/A; Pain 8/10; tw2 11:17 Temp 98(TE); tw2 11:50 Pain 6/10; tw2 12:28 BP 108 / 71; Pulse 72; Resp 17; Pulse Ox 100% on R/A; tw2 13:38 BP 116 / 64; Pulse 76; Resp 17; Pulse Ox 98% on R/A; tw2 14:42 BP 118 / 58; Pulse 80; Resp 17; Pulse Ox 100% on R/A; tw2 10:16 Body Mass Index 29.95 (81.65 kg, 165.10 cm) jl7 ED Course: 10:10 Patient arrived in ED. mr 10:12 Kun Rosen PA is PHCP. m 10:12 Khris Luna MD is Attending Physician. [facility] 10:12 Bed in low position. Call light in reach. Adult w/ patient. Pulse ox on. NIBP on. tw2 10:16 Kimberley Foreman RN is Primary Nurse. tw2 10:17 Arm band placed on. tw2 10:18 Triage completed. jl7 10:40 Missed attempt(s): 20 gauge in right forearm. Bleeding controlled, band aid applied, tw2 catheter tip intact. Missed attempt(s): 22 gauge in left forearm. notified RAMIRO Slater of need for iv at this time.. Bleeding controlled, band aid applied, catheter tip intact. 10:55 Inserted saline lock: 22 gauge in left antecubital area, using aseptic technique. Blood jd3 collected. 12:13 CT Abd/Pelvis - IV Contrast Only In Process Unspecified. EDMS 13:43 Transvaginal Study Probe In Process Unspecified. EDMS 14:42 No provider procedures requiring assistance completed. IV discontinued, intact, tw2 bleeding controlled, No redness/swelling at site. Pressure dressing applied. Administered Medications: 10:55 Drug: NS 0.9% 1000 ml Route: IV; Rate: 1 bolus; Site: left antecubital; jd3 12:04 Follow up: Response: No adverse reaction; IV Status: Completed infusion; IV Intake: tw2 1000ml 10:55 Drug: morphine 4 mg Route: IVP; Site: left antecubital; jd3 11:22 Follow up: Response: No adverse reaction; Pain is unchanged, physician notified tw2 10:55 Drug: Zofran (Ondansetron) 4 mg Route: IVP; Site: left antecubital; jd3 11:22 Follow up: Response: No adverse reaction tw2 11:22 Drug: fentaNYL (PF) 50 mcg {Note: RASS 0.} Route: IVP; Site: left antecubital; tw2 11:50 Follow up: Pain 6/10 Adult; Response: No adverse reaction; Pain is decreased tw2 13:35 Drug: Ketorolac 30 mg Route: IVP; Site: left antecubital; tw2 13:56 Follow up: Response: No adverse reaction; Pain is unchanged, physician notified; Pain tw2 is unchanged, pt reports "burning in that area, like a warmness", physician notified Intake: 12:04 IV: 1000ml; Total: 1000ml. tw2 Outcome: 14:14 Discharge ordered by . zuleyma 14:42 Discharged to home ambulatory. tw2 14:42 Condition: stable 14:42 Discharge instructions given to patient, Instructed on discharge instructions, follow up and referral plans. no drinking with medication, no driving heavy equipment, medication usage, Demonstrated understanding of instructions, follow-up care, medications, Prescriptions given X 4. 14:43 Patient left the ED. tw2 Signatures: Dispatcher [employer] EDMS Kun Rosen PA PA jmm Rivera, Mary Kimberley Foreman RN RN tw2 Osman Waldrop RN RN jl7 Moise Ahuja RN RN jd3
[2020-10-09 15:31] VITALS: TEMP 98
[2020-10-09 15:37] VITALS: BP 118/58; O2SAT 100
== END 2020-10-09 14:43 | disposition home or self-care (01) ==
LOC: ER 10:07
DX: R10.84 Generalized abdominal pain (principal); R11.2 Nausea with vomiting, unspecified; F17.210 Nicotine dependence, cigarettes, uncomplicated; Z91.018 Allergy to other foods
CPT/HCPCS: 36415; 74177; 76830; 80048; 80076; 81003; 81025; 83690; 85025; 96361; 96374; 96375; 99284; J2405; J3010; J7030; Q9967

== ENCOUNTER 2021-01-13 20:48 | Emergency (ER) | payer SELFPAY ==
[2021-01-13 21:42] LABS: Urine Blood Negative (Negative); Urine Glucose Negative (Negative); Urine Protein Negative (Negative); Urine Specific Gravity >=1.030 (1.005-1.030); Urine pH 6.5 (5.0-7.0)
--- NOTE | 2021-01-13 21:52 | RAD REPORT ---
EXAM DESCRIPTION: CT - Spine Lumbar Wo Con - 01/13/2021 9:44 pm CLINICAL HISTORY: fall;Pain COMPARISON: None. TECHNIQUE: Thin section axial imaging of the lumbar spine was performed. Sagittal and coronal recon struction images were generated and reviewed. All CT scans are performed using dose optimization technique as appropriate and may include automated exposure control or mA/KV adjustment according to patient size. FINDINGS: Lumbar bodies are normal in height and alignment. No fracture is identified. No lytic, s clerotic or expansile bony destructive process. No paraspinal mass or other paraspinal abnormality. No disc space narrowing and no degenerative gas in the disc space. L1-2 level: No significant findings. L2-3 level: No significant findings. L3-4 level: No significant findings. L4-5 level: No significant findings. L5-S1 level: No significant findings. Central canal detail is inherently limited. IMPRESSION: CT lumbar spine study shows no significant bone, disc or soft tissue finding. All CT scans are performed using dose optimization technique as appropriate and may include automated exposure control or mA/KV adjustment according to patient size.
[2021-01-13 22:06] LABS: Urine Specific Gravity/Preg >1.030 (1.005-1.030)
--- NOTE | 2021-01-13 22:14 | ER ---
Nurse's Notes [facility] Name: Daina Ibrahim Age: 35 yrs Sex: Female : 1985 Arrival Date: 01/13/2021 Time: 20:52 Bed 3 Private MD: Diagnosis: Contusion lower back. S/P Fall Presentation: 01/13 21:02 Chief complaint: Patient states: Pt states she was running into the house trying to wg avoid the rain and slipped landing on her right lower back. Pt states she fell around 1700 and is complaining of right pain to her buttocks radiating down her right leg. +CMSx4. Pt states she has numbness in her right leg/foot. Pt denied hitting head and denies losing consciousness. Care prior to arrival: None. Mechanism of Injury: Fall from standing position. 21:02 Acuity: KARO 3 21:02 Method Of Arrival: Ambulatory 21:30 Coronavirus screen: Vaccine status: Patient reports being unvaccinated. Client denies em travel out of the [place] in the last 14 days. Client presents with at least one sign or symptom that may indicate coronavirus-19. At this time, the client does not indicate any symptoms associated with coronavirus-19. Ebola Screen: No symptoms or risks identified at this time. Initial Sepsis Screen: Does the patient meet any 2 criteria? No. Patient's initial sepsis screen is negative. Does the patient have a suspected source of infection? No. Patient's initial sepsis screen is negative. Risk Assessment: Do you want to hurt yourself or someone else? Patient reports no desire to harm self or others. Onset of symptoms was January 13, 2021 at 19:00. 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 - Immunization history:: Adult Immunizations up to date, Client reports having NOT received the Covid vaccine. - Immunization history: Last tetanus immunization: - up to date. - Social history:: Smoking status: Patient denies any tobacco usage or history of. Screenin:08 Abuse screen: Denies threats or abuse. Denies injuries from another. Tuberculosis wg screening: No symptoms or risk factors identified. Fall risk At risk due to prior history of falls. 21:33 Nutritional screening: No deficits noted. Fall Risk Fall in past 12 months (25 points). em No secondary diagnosis (0 pts). No IV (0 pts). Ambulatory Aid- None/Bed Rest/Nurse Assist (0 pts). Gait- Normal/Bed Rest/Wheelchair (0 pts) Mental Status- Oriented to own ability (0 pts). Primary Survey: 21:08 NO uncontrolled hemorrhage observed. A: Airway: patent. Breathing/Chest: Respiratory wg pattern: regular. Circulation: Pulses: palpable right radial artery, right posterior tibial artery, left radial artery and left posterior tibial artery. Disability Alert. 21:30 Reassessment Breathing/Chest Respiratory pattern Regular Respiratory effort Spontaneous em Unlabored. 21:32 Exposure/Environment: All clothing and personal items were removed. Forensic evidence em collection is not deemed to be indicated at this time. Items placed in patient belonging bag. Assessment: 21:06 General: Appears uncomfortable, Behavior is cooperative, anxious. Pain: Complains of wg pain in Right buttocks radiating down right leg Pain currently is 10 out of 10 on a pain scale. Neuro: No deficits noted. Reports numbness radiating down right leg. EENT: No deficits noted. Cardiovascular: No deficits noted. Respiratory: No deficits noted. GI: No deficits noted. : No deficits noted. Derm: No deficits noted. Musculoskeletal: No deficits noted. Circulation, motion, and sensation intact. Capillary refill < 3 seconds, Range of motion: intact in all extremities, Reports numbness in right leg. 21:27 Reassessment: Pt c/o bilat "butt" pain after slipping and falling down. Pt denies em dizziness, weakness, LOC/head trauma. Pt reports pain radiates down both legs. A\\T\\O x 3, RR is even and unlabored, speaking in clear and complete sentences at this time. Vital Signs: 21:08 BP 109 / 72; Pulse 72; Resp 18; Temp 98.4; Pulse Ox 100% on R/A; Weight 88.9 kg; Height wg 5 ft. 5 in. (165.10 cm); Pain 10/10; 23:06 BP 115 / 80; Pulse 70; Resp 15; Temp 98.7(O); Pulse Ox 100% on R/A; Pain 0/10; bc5 21:08 Body Mass Index 32.62 (88.90 kg, 165.10 cm) wg Ranjeet Coma Score: 21:08 Eye Response: spontaneous(4). Verbal Response: oriented(5). Motor Response: obeys commands(6). Total: 15. Trauma Score (Adult): 21:08 Eye Response: spontaneous(1); Verbal Response: oriented(1); Motor Response: obeys commands(2); Systolic BP: > 89 mm Hg(4); Respiratory Rate: 10 to 29 per min(4); [place] Score: 15; Trauma Score: 12 ED Course: 20:52 Patient arrived in ED. bp1 21:05 Triage completed. wg 21:08 Patient has correct armband on for positive identification. wg 21:14 Maxwell Zazueta MD is Attending Physician. pkl 21:44 CT Lumbar Spine Wo Con In Process Unspecified. EDMS 23:03 Maya Sanchez, RAMIRO is Primary Nurse. bc5 23:03 No provider procedures requiring assistance completed. bc5 23:05 Arm band placed on. bc5 23:05 Patient maintains SpO2 saturation greater than 95% on room air. bc5 23:05 Thermoregulation: warm blanket given to patient. bc5 Administered Medications: 22:04 Drug: Demerol (meperidine) 75 mg Route: IM; Site: right deltoid; em 23:06 Follow up: Response: Pain is decreased bc5 22:04 Drug: Phenergan (promethazine) 12.5 mg Route: IM; Site: left deltoid; em 23:05 Follow up: Response: Pain is decreased bc5 Outcome: 22:14 Discharge ordered by . pkl 23:04 Discharged to home ambulatory. bc5 23:04 Condition: improved 23:04 Discharge instructions given to Instructed on discharge instructions, follow up and referral plans. medication usage, Demonstrated understanding of instructions, follow-up care, medications, Prescriptions given X 1. 23:06 Patient left the ED. bc5 Signatures: Dispatcher [employer] Maxwell Arreola MD MD pkl Munoz, Edgar, RN RN Marilu Louie Liam, Maya Sandoval RN RN bc5 Corrections: (The following items were deleted from the chart) 22:01 22:01 PSHx: Unable to Obtain; nicolle em
--- NOTE | 2021-01-13 22:14 | EDPHYS ---
Physician Documentation [facility] Name: Daina Ibrahim Age: 35 yrs Sex: Female : 1985 Arrival Date: 01/13/2021 Time: 20:52 Bed 3 Private MD: ED Physician Maxwell Zazueta HPI: 01/13 21:34 This 35 yrs old Female presents to ER via Ambulatory with complaints of Fall pkl Injury. 21:34 Details of fall: The patient fell from an upright position, while running, slipped and pkl fell on the lower back. Onset: The symptoms/episode began/occurred just prior to arrival, 2 hour(s) ago. Associated injuries: The patient sustained injury to the low back, pain. 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 - Immunization history:: Adult Immunizations up to date, Client reports having NOT received the Covid vaccine. - Immunization history: Last tetanus immunization: - up to date. - Social history:: Smoking status: Patient denies any tobacco usage or history of. ROS: 21:34 Eyes: Negative for injury, pain, redness, and discharge, ENT: Negative for injury, pkl pain, and discharge, Neck: Negative for injury, pain, and swelling, Cardiovascular: Negative for chest pain, palpitations, and edema, Respiratory: Negative for shortness of breath, cough, wheezing, and pleuritic chest pain, Abdomen/GI: Negative for abdominal pain, nausea, vomiting, diarrhea, and constipation. 21:34 Back: Positive for pain at rest, of the lower back. 21:34 MS/extremity: Negative for acute changes. pkl 21:34 Skin: Negative for rash. 21:34 Neuro: Negative for altered mental status, loss of consciousness. Exam: 21:40 Head/Face: Normocephalic, atraumatic. Eyes: Pupils equal round and reactive to light, pkl extra-ocular motions intact. Lids and lashes normal. Conjunctiva and sclera are non-icteric and not injected. Cornea within normal limits. Periorbital areas with no swelling, redness, or edema. ENT: Nares patent. No nasal discharge, no septal abnormalities noted. Tympanic membranes are normal and external auditory canals are clear. Oropharynx with no redness, swelling, or masses, exudates, or evidence of obstruction, uvula midline. Mucous membranes moist. Neck: Trachea midline, no thyromegaly or masses palpated, and no cervical lymphadenopathy. Supple, full range of motion without nuchal rigidity, or vertebral point tenderness. No Meningismus. Chest/axilla: Normal chest wall appearance and motion. Nontender with no deformity. No lesions are appreciated. Cardiovascular: Regular rate and rhythm with a normal S1 and S2. No gallops, murmurs, or rubs. Normal PMI, no JVD. No pulse deficits. Respiratory: Lungs have equal breath sounds bilaterally, clear to auscultation and percussion. No rales, rhonchi or wheezes noted. No increased work of breathing, no retractions or nasal flaring. Abdomen/GI: Soft, non-tender, with normal bowel sounds. No distension or tympany. No guarding or rebound. No evidence of tenderness throughout. 21:40 Back: pain, that is moderate, of the lower back, Straight leg raises: pain bilaterally. 21:40 : Exam negative for acute changes. 21:40 Musculoskeletal/extremity: Exam is negative for acute changes. 21:40 Skin: Exam negative for rash. 21:40 Neuro: Orientation: is normal, Mentation: is normal, Cranial nerves: grossly normal, Motor: is normal. Vital Signs: 21:08 BP 109 / 72; Pulse 72; Resp 18; Temp 98.4; Pulse Ox 100% on R/A; Weight 88.9 kg; Height wg 5 ft. 5 in. (165.10 cm); Pain 10/10; 23:06 BP 115 / 80; Pulse 70; Resp 15; Temp 98.7(O); Pulse Ox 100% on R/A; Pain 0/10; bc5 21:08 Body Mass Index 32.62 (88.90 kg, 165.10 cm) Goodrich Coma Score: 21:08 Eye Response: spontaneous(4). Verbal Response: oriented(5). Motor Response: obeys commands(6). Total: 15. Trauma Score (Adult): 21:08 Eye Response: spontaneous(1); Verbal Response: oriented(1); Motor Response: obeys wg commands(2); Systolic BP: > 89 mm Hg(4); Respiratory Rate: 10 to 29 per min(4); Ranjeet Score: 15; Trauma Score: 12 MDM: 21:14 Patient medically screened. pkl 22:11 Data reviewed: vital signs, nurses notes, radiologic studies, CT scan. ED course: pkl Patient feeling better. Discussed CT Scan result with patient. Advised to follow up with PCP in 2 to 3 days. Patient understood instructions. 01/13 21:42 Order name: Urine Dipstick-Ancillary; Complete Time: 22:08 EDMS 01/13 21:51 Order name: Urine --Ancillary (enter results); Complete Time: 22:08 mw2 01/13 21:31 Order name: CT Lumbar Spine Wo Con; Complete Time: 22:08 pkl 01/13 21:34 Order name: Urine Dipstick-Ancillary (obtain specimen); Complete Time: 21:35 mw2 01/13 21:34 Order name: Urine Test (obtain specimen); Complete Time: 21:35 mw2 Administered Medications: 22:04 Drug: Demerol (meperidine) 75 mg Route: IM; Site: right deltoid; em 23:06 Follow up: Response: Pain is decreased bc5 22:04 Drug: Phenergan (promethazine) 12.5 mg Route: IM; Site: left deltoid; em 23:05 Follow up: Response: Pain is decreased bc5 Disposition Summary: 01/13/21 22:14 Discharge Ordered Location: Home pkl Problem: new pkl Symptoms: have improved pkl Condition: Stable pkl Diagnosis - Contusion lower back. S/P Fall pkl Followup: pkl - With: Private Physician - When: 2 - 3 days - Reason: Re-evaluation by your physician Discharge Instructions: - Discharge Summary Sheet pkl Forms: - Medication Reconciliation Form pkl - Thank You Letter pkl - Work release form pkl - Antibiotic Education pkl - Prescription Opioid Use pkl Prescriptions: - Diclofenac Sodium 75 mg Oral tablet,delayed release (DR/EC) - take 1 tablet by ORAL route 2 times per day; 20 tablet; Refills: 0, Product pkl Selection Permitted Signatures: [facility] Maxwell Arreola MD MD pkl Isaias Ryan RN RN Maegan Buckner mw2 Robert Gallagher, RAMIRO wg Maya Sanchez RN RN bc5 Corrections: (The following items were deleted from the chart) 22: 22:01 PSHx: Unable to Obtain; nicolle valverde
[2021-01-13] MEDS ORDERED: MEPERIDINE HCL 50 MG/ML ONE (22:22)
[2021-01-13] MEDS ORDERED: PROMETHAZINE INJ 25 MG/ML AMP ONE (22:22)
[2021-01-13] MEDS ORDERED: MEPERIDINE HCL 25 MG/ML SYR ONE (22:22)
[2021-01-14 00:23] VITALS: O2SAT 100
[2021-01-14 00:24] VITALS: BP 115/80; TEMP 98.7
== END 2021-01-13 23:06 | disposition home or self-care (01) ==
LOC: ER 20:48
DX: S30.0XXA Contusion of lower back and pelvis, initial encounter (principal); W01.0XXA Fall on same level from slipping, tripping and stumbling without subsequent striking against object, initial encounter; Y93.02 Activity, running; Z91.018 Allergy to other foods
CPT/HCPCS: 72131; 81003; 81025; 96372; 99284; J2175; J2550

== ENCOUNTER 2021-02-03 09:41 | Emergency (ER) | payer OTHER, SELFPAY ==
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
[2021-02-03 11:55] VITALS: BP 128/82; TEMP 97.8; O2SAT 100
== END 2021-02-03 11:13 | disposition home or self-care (01) ==
LOC: ER 09:41
DX: S16.1XXA Strain of muscle, fascia and tendon at neck level, initial encounter (principal); M54.12 Radiculopathy, cervical region; V49.40XA Driver injured in collision with unspecified motor vehicles in traffic accident, initial encounter; F17.210 Nicotine dependence, cigarettes, uncomplicated; Z91.018 Allergy to other foods
CPT/HCPCS: 72125; 99284

== ENCOUNTER 2022-05-03 14:49 | Emergency (ER) | payer SELFPAY ==
--- OUTSIDE RECORDS SUMMARY | 2022-05-03 14:52 | XMS REPORT | Continuity of Care Document ---
:[address] [facility] t Address [address] [place] [address] Care Team Providers Name Role Phone Vanesa Live Primary Care Physician [phone] Doctor Unassigned, [place] Attending Clinician Unavailable Cassia Hidalgo Attending Clinician [phone] JUNIE CHAMBERS Attending Clinician Unavailable Junie Chambers MD Attending Clinician Vanesa Live Attending Clinician VANESA TIDWELL Attending Clinician Unavailable Payers Payer Name Policy Type Policy Number Effective Date Expiration Date S ource Problems Condition Condition Condition Status Onset Resolution Last Treating Co mments Source Name Details Category Date Date Treatment Clinician Date BMI BMI Disease Active 2021-05 Univers 29.0-29.9, 29.0-29.9, 0-12 it y of adult adult 00:00: [address] Overweight Overweight Disease Active 2021-05 U nivers (BMI (BMI 0-12 ity of 25.0-29.9) 25.0[place]29.9[place] [address] [place] [address] Screening Screening Disease Active 2021-05 Uni vers examinatio examinatio 0-12 it y of n for STD n for STD 00:00: Radha s (sexually (sexually 00 Medi victorino transmitte transmitte Br anch d disease) d disease) Breast Breast Disease Active 2021-05 Univers discharge discharge 0-12 ity of 00:00: [place] 00 Medical Branch Breast Breast Disease Active 2021-05 Univers abscess abscess 0-12 ity of 00:00: [place] [address] Medical Branch Allergies, Adverse Reactions, Alerts Allergy Allergy Status Severity Reaction(s) Onset Inactive Treating Comm ents Source Name Type Date Date Clinician NO KNOWN Drug Active Univers ALLERGIE Class ity of [facility] Social History Social Habit Start Date Stop Date Quantity Comments Source Exposure to 2022-02-01 2022-02-11 Not sure [facility] SARS-CoV-2 (event) 00:00:00 09:08:00 Medica l Branch Sex Assigned At [birth year] [facility] [place] 00:00:00 00:00:00 Medical Branch Smoking Status Start Date Stop Date Source Tobacco smoking consumption [facility] Branch Medications Ordered Filled Start Stop Current Ordering Indication Dosage Frequency Signature Comments Components Source Medication Medication Date Date Medication? Clinician (SIG) Name Name No known 2021-05 No No known Unive rs medications 0-12 medication it y of :30: [address] No known 2021-05 No No known Unive rs medications 0-12 medication it y of :30: [address] No known 2021-05 No No known Unive rs medications 0-12 medication it y of :30: [address] No known 2021-05 No No known Unive rs medications 0-12 medication it y of :30: [address] No known 2021-05 No No known Unive rs medications 0-12 medication it y of :30: [address] No known 2021-05 No No known Unive rs medications 0-12 medication it y of :30: [address] No known 2021-05 No No known Unive rs medications 0-12 medication it y of :30: [address] No known 2021-05 No No known Unive rs medications 0-12 medication it y of :30: [address] No known 2021-05 No No known Unive rs medications 0-12 medication it y of :30: [address] No known 2021- No No known Unive rs medications 0-12 medication it y of :30: [address] No known 2021-05 No No known Unive rs medications 0-12 medication it y of 09:30: s [address] No known 2021-05 No No known Unive rs medications 0-12 medication it y of 09:30: s [address] No known 2021-05 No No known Unive rs medications 0-12 medication it y of 09:30: s [address] Vital Signs Vital Name Observation Time Observation Value Comments Source Systolic blood 2022-02-11 14:09:00 108 mm[Hg] Univer sity of pressure [facility] Diastolic blood 2022-02-11 14:09:00 69 mm[Hg] Unive rsity of pressure [facility] Heart rate 2022-02-11 14:09:00 65 /min [facility] Body temperature 2022-02-11 14:09:00 36.61 Yanelis Univ ersity of [facility] Respiratory rate 2022-02-11 14:09:00 18 /min Univ ersity [facility] Body height 2022-02-11 14:09:00 165.1 cm [facility] Body weight 2022-02-11 14:09:00 79.878 kg [facility] BMI 2022-02-11 14:09:00 29.30 kg/m2 [facility] Procedures Procedure Date / Time Performing Clinician Source Performed EXTERNAL PROVIDER 2022-04-03 06:01:00 Doctor Unassigned, No Univ ersity of [place] RECORDS Name Medical Branch EXTERNAL PROVIDER 2022-02-25 05:01:00 Doctor Unassigned, No Univ ers[facility] [place] RECORDS Name Medical Branch BCCS-RELATED 2022-02-20 05:01:00 Doctor Unassigned, No [facility]iver [facility] [place] DOCUMENTATION Name Medical Branch BI DIAGNOSTIC 2022-02-13 14:43:47 Junie Chambers [facility] TOMOSYNTHESIS BILATERAL Medical Branch NOTICE OF PRIVACY 2022-02-11 13:51:06 Doctor Unassigned, No Univ [facility] [place] PRACTICES Name Medical Branch Encounters Start End Encounter Admission Attending Care Care Encounter Source Date/Time Date/Time Type Type Clinicians Facility Department ID 2022-04-07 2022-04-07 Outpatient SFA MARTIR [id number] 11:13:39 11:13:39 [id number] F Gagandeep 2022-04-03 2022-04-03 Orders Doctor TIMBO 1.2.840.114 [id number] Univers 00:00:00 00:00:00 Only Unassigned, ROB [id number] ity of [place] [facility] 4.2.7.2.686 Gareth as [id number] [address] 2022-03-23 2022-03-23 Telephone [facility] 1.2.840.114 [id number] Univers 00:00:00 00:00:00 Cassia C AUTO RADIATOR SPECIALIST [id number] ity of REGIONAL 4.2.7.2.686 Gareth as MATERNAL [id number] Med ical & CHILD [address] [place] [address] 2022-02-25 2022-02-25 Orders Doctor TIMBO 1.2.840.114 [id number] Univers 00:00:00 00:00:00 Only Unassigned, ROB 350.1.13.10 ity of [place] [facility] 4.2.7.2.686 Gareth as [id number] [address] 2022-02-23 2022-02-23 [facility] [id number] Univers 00:00:00 00:00:00 JUNIE ity of [facility] 2022-02-20 2022-02-20 Outpatient R [facility] [id number] Univers 15:00:00 15:00:00 ity of [facility] 2022-02-20 2022-02-20 Orders Doctor TIMBO 1.2.840.114 [id number] Univers 00:00:00 00:00:00 Only Unassigned, ROB 350.1.13.10 ity of [place] [facility] 4.2.7.2.686 Gareth as [id number] [address] 2022-02-19 2022-02-19 Telephone [facility] 1.2.840.114 [id number] Univers 00:00:00 00:00:00 Cassia C AUTO RADIATOR SPECIALIST [id number] ity of REGIONAL 4.2.7.2.686 Gareth as MATERNAL [id number] [facility] ical & CHILD [address] [place] [address] 2022-02-16 2022-02-16 Telephone [facility] 1.2.840.114 [id number] Univers 00:00:00 00:00:00 Junie S HEALTH 350.1.13.10 it [place] - [id number] Med [address] 2022-02-13 2022-02-13 [facility] [id number] Univers 09:43:47 23:59:00 JUNIE ity of [facility] 2022-02-13 2022-02-13 [facility] 1.2.840.114 [id number] Univers 09:43:47 23:59:00 Encounter Junie S SPECIALTY 350.1.13.10 [place] [id number] [place] [id number] [facility] 2022-02-12 2022-02-12 Telephone [facility] 1.2.840.114 [id number] Univers 00:00:00 00:00:00 Junie S HEALTH 350.1.13.10 it [place] - [id number] Med [address] 2022-02-11 2022-02-11 Office [facility] 1.2.840.114 [id number] Univers 08:45:00 11:03:34 Visit Vanesa Lemus AUTO RADIATOR SPECIALIST 350.1.13.10 ity of REGIONAL 4.2.7.2.686 Gareth as MATERNAL [id number] Med ical & CHILD [address] [place] [address] 2022-02-11 2022-02-11 [facility] [id number] Univers 08:45:00 11:03:34 VANESA ivey o f [facility] 2022-02-11 2022-02-11 Orders Doctor TIMBO 1.2.840.114 [id number] Univers 00:00:00 00:00:00 Only Unassigned, ROB 350.1.13.10 ity of [place] [facility] 4.2.7.2.[id number] [facility] [address] [place] 2022-02-11 2022-02-11 DORITA Stahl 1.2.840.114 [id number] Univers 00:00:00 00:00:00 (Out) Vanesa Lemus AUTO RADIATOR SPECIALIST 350.1.13.[address] [facility] 4.2.7.2.686 Gareth as MATERNAL [id number] Med ical & CHILD 107 [facility] Results Test Description Test Time Test Comments Results Result [facility] e Comments BREAST ULTRASOUND 2022-01-28 BILATERAL 11:43:55 Name: Daina: 1985 Sex: F - DIAG MAMM BILATERAL BLAYNE CAD DIGITAL - BREAST ULTRASOUND BILATERALBILATERAL DIGITAL DIAGNOSTIC MAMMOGRAM 3D/2D WITH CAD: 2CLINICAL: Discharge, left breast, Xthree weeks.Diffuse pain and swelling, left breast, Xthree weeks. Digital breast tomosynthesis was performed in addition to routine CC and MLO views. Current mammographic images were evaluated by [employer] CAD (computer-aided detection) software. Comparison is made to exams dated 07/06/2019 mammogram, 06/23/2019 ultrasound, 06/23/2019 mammogram, and 06/14/2019 mammogram - [facility]. The tissue of both breasts is extremely dense, which lowers the sensitivity of mammography. On the right, no suspicious mass, architectural distortion, malignant type calcification, or lymph node abnormality detected. On the left, periareolar skin thickening is noted, correlating with the region of concern. Ultrasound correlation is to follow.IMPRESSION: INCOMPLETE: ADDITIONAL IMAGING EVALUATION NEEDEDFurther evaluation with ultrasound was performed and reported below.COMPLETE ULTRASOUND OF BOTH BREASTS AND AXILLA: 2Comparison is made to exams dated 07/06/2019 mammogram, 06/23/2019 ultrasound, 06/23/2019 mammogram, and 06/14/2019 mammogram - [facility]. Color flow and real-time ultrasound of both breasts four quadrants, retroareolar, and axilla regions were performed. Nascimento scale images of the real-time examination were reviewed. On the left, at the 2 o'clock position, 2 cm from the nipple, a subcutaneous abscess is noted measuring 4.5 x 4.6 x 0.4 cm. There is surrounding soft tissue edema and skin thickening. At the 11 o'clock position, 2 cm from the nipple, a second abscess is noted measuring 2.8 x 3.0 x 0.8 cm. Patient reports she is currently on antibiotic therapy, with some interval improvement. She also reports a history of recurrent abscesses with previous aspirations.No significant abnormalities were seen sonographically in the right breast or either axilla. IMPRESSION: PROBABLY BENIGN 1. Left breast: Findings are suggestive of recurrent breast abscesses. Recommend surgical evaluation for potential surgical incision and drainage. Skin punch biopsy is also recommended.2. Recommend follow-up ultrasound in 3 months to assess resolution of these findings after appropriate medical management.Follow-up with three-month ultrasound.Kalpana gama/:01/28/2022 11:43:55 Entry: - 01/28/2022 12:05:51Imaging Technologist: Radha SOTELO, [facility]-; Sabine SOTELO, [facility]-letter sent: Short Term Follow Up Mammogram BI-RADS: 0 Incomplete: Additional Imaging Evaluation Needed Ultrasound BI-RADS: 3 Probably benign BREAST ULTRASOUND 2022-01-28 BILATERAL 11:43:55 Name: Daina JAQUI: 1985 Sex: F AMENDMENT: 03/06/2022 Kalpana Ray M.D. RECOMMENDATIONS:1. Left breast: In view of patient's complaint of recurrent breast abscesses, would recommend skin punch biopsy at the 2 o'clock position, 2 cm from the nipple, at time of abscess drainage. Amended BI-RADS: 3 Probably benign DIAG MAMM 2022-01-28 BILATERAL BLAYNE 11:43:55 CAD DIGITAL Name: Daina: 1985 Sex: F AMENDMENT: 03/06/2022 Kalpana Ray M.D. RECOMMENDATIONS:1. Left breast: In view of patient's complaint of recurrent breast abscesses, would recommend skin punch biopsy at the 2 o'clock position, 2 cm from the nipple, at time of abscess drainage. Amended BI-RADS: 3 Probably benign DIAG MAMM 2022-01-28 BILATERAL BLAYNE 11:43:55 CAD DIGITAL Name: Daina: 1985 Sex: F - DIAG MAMM BILATERAL BLAYNE CAD DIGITAL - BREAST ULTRASOUND BILATERALBILATERAL DIGITAL DIAGNOSTIC MAMMOGRAM 3D/2D WITH CAD: 2CLINICAL: Discharge, left breast, Xthree weeks.Diffuse pain and swelling, left breast, Xthree weeks. Digital breast tomosynthesis was performed in addition to routine CC and MLO views. Current mammographic images were evaluated by [employer] CAD (computer-aided detection) software. Comparison is made to exams dated 07/06/2019 mammogram, 06/23/2019 ultrasound, 06/23/2019 mammogram, and 06/14/2019 mammogram - [facility]. The tissue of both breasts is extremely dense, which lowers the sensitivity of mammography. On the right, no suspicious mass, architectural distortion, malignant type calcification, or lymph node abnormality detected. On the left, periareolar skin thickening is noted, correlating with the region of concern. Ultrasound correlation is to follow.IMPRESSION: INCOMPLETE: ADDITIONAL IMAGING EVALUATION NEEDEDFurther evaluation with ultrasound was performed and reported below.COMPLETE ULTRASOUND OF BOTH BREASTS AND AXILLA: 2Comparison is made to exams dated 07/06/2019 mammogram, 06/23/2019 ultrasound, 06/23/2019 mammogram, and 06/14/2019 mammogram - [facility]. Color flow and real-time ultrasound of both breasts four quadrants, retroareolar, and axilla regions were performed. Nascimento scale images of the real-time examination were reviewed. On the left, at the 2 o'clock position, 2 cm from the nipple, a subcutaneous abscess is noted measuring 4.5 x 4.6 x 0.4 cm. There is surrounding soft tissue edema and skin thickening. At the 11 o'clock position, 2 cm from the nipple, a second abscess is noted measuring 2.8 x 3.0 x 0.8 cm. Patient reports she is currently on antibiotic therapy, with some interval improvement. She also reports a history of recurrent abscesses with previous aspirations.No significant abnormalities were seen sonographically in the right breast or either axilla. IMPRESSION: PROBABLY BENIGN 1. Left breast: Findings are suggestive of recurrent breast abscesses. Recommend surgical evaluation for potential surgical incision and drainage. Skin punch biopsy is also recommended.2. Recommend follow-up ultrasound in 3 months to assess resolution of these findings after appropriate medical management.Follow-up with three-month ultrasound.Kalpana Ray M.D. yaq/:01/28/2022 11:43:55 Entry: - 01/28/2022 12:05:51Imaging Technologist: Radha SOTELO, [facility]; Sabine Ventura GW, [facility]-GWletter sent: Short Term Follow Up Mammogram BI-RADS: 0 Incomplete: Additional Imaging Evaluation Needed Ultrasound BI-RADS: 3 Probably benign APARNA REFLEX AUTOIMMUNE AB PROFILE 2021-10-10 12:48:05 Test Item Value Reference Range Interpretation Comme nts ANTI-NUCLEAR ANTIBODIES (test NEGATIVE NEGATIVE Methodology is Indirect code = 3506) Immunofluoresce nt Assay (IFA) with a titering syst em using [id number] cells (Hep2 yanelis ls transfected with SS-A/Ro). SEDIMENTATION [id number] 09:32:29 Test Item Value Reference Range Interpretation Comments SEDIMENTATION RATE (test code = 2 MM/HOUR 0-20 1017) C-REACTIVE [id number] 06:45:15 Test Item Value Reference Range Interpretation Comments C-REACTIVE PROTEIN (test code = <0.3 MG/DL <0.5 3513) RHEUMATOID FACTOR, [id number] 06:45:15 Test Item Value Reference Range Interpretation Comments RHEUMATOID FACTOR, QUANT (test code <10 IU/ML <14 = 3502) URIC [id number] 06:27:17 Test Item Value Reference Range Interpretation Comments URIC ACID (test code = 2233) 4.9 MG/DL 2.7-6.1 VITAMIN D, 25 [id number] 06:02:09 Test Item Value Reference Range Interpretation Comments VITAMIN D, 25 OH 28 NG/ML SEE BELOW L NOTE: 25-H YDROXYVITAMIN D (test code = 4958) ASSAY INC LUDES 25-HYDROXYVITAM IN D2 AND D3. METHODOLOGY IS CHEMILUMINESCEN T IMMUNOASSAY. INTERPRETIVE RA NGES PEDIATRIC (<17 YEARS) . . . . . . . . . . . NG/ML 20-100ADULT: IN SUFFICIENT . . . . . . . . . . . . . . NG/ML <20 SUBOP TIMAL . . . . . . . . . . . . . . . NG/ML 20-29 OPT IMAL . . . . . . . . . . . . . . . . . NG/ML 30-100 UN LESS OTHERWISE INDIC ATED, ALL TESTING PERFORM ED [facility], I [place]. [address] [place] [address] LABORATORY DIRE CTOR: Rosy CONROY. CLIA NUMBER [id number] CAP ACCREDITATION N O. 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 the prior case was reviewed and th ediagnoses confirmed. The current case shows mixed inf lammationwith reactive change s suggesting prior procedure sites. Multipleadditio nal levels from each block were evaluated with [id number] hemical stains, but no residual dysplasia and nomalignancy ar e seen. It is possible that t he lesions werecompletely removed with a prior biopsy pr ocedure or haveregressed i n the interim. MICROSCOPIC (NOTE) A) The sections show DESCRIPTION: (test transform ation zone mucosa and code = 8210) cervicalstroma. There is good sampling of the transformation zone. There is acute and chronic inflamm ation and subepithelialfi brosis consistent with prior procedure site. There areadjacent rasta ctive epithelial dougherty ges, but no diagnostic dysp lasiaand no malignancy are seen. Deeper levels were rev iewed fromeach block. These ar e histologically similar to the initialsections . In addition, P16 immunohisto chemical stains wereperformed a nd evaluated with appropriat norman reacting controls onall blocks from part A. These s tains show no increase in p16 staining. B) The sections sh ow benign endocervical mu cosa and stroma. Multipl e additional deeper levels a re also reviewed from t giovannas. No atypia or malig jose maria are seen. CLINICAL DATA: (NOTE) Not specified (test code = 8401) GROSS DESCRIPTION: (NOTE) A) Naseemiv ed in formalin (test code = 8220) labeled w ith "CA and ectocervix" is a 1.8x 1.1 x 0.8 cm conical pink-carroll soft tissue fragment consistentwith LEEP specimen. There is a suture on one a spect designating"12: 00" per the requisition. Th ere is a 0.9 cm in diameter os. The ectocervix is pink-carroll, sm ooth and glistening with blue inkon the periphery of th e specimen. Prior to sectio coral, the deependocervica l margin is inked blue and all remaining radialmargins a re inked orange. The spe cimen is radially sectio margarita andentirely submitted as fo roopaws: CASSETTE CODE:A1 - 12-3: 00 quadrant x 3A2 - 3-6:00 qu adrant x 3A3 - 6-9:00 quadrant x 3A4 - 9-12:00 quadran t x 3 Additionally re ceived in the same container are twoirregularly- shaped pink-carroll soft tissue fra gments measuring 4.5 x 1.2 x 0.6 cm and 1.5 x 0.4 x 0.3 cm. The soft tissue fra gmentsare partially surfa tracy by pink-carroll, mercedes h, glisteningectoc ervix. The ectocervix has blue ink on one edge of each so fttissue fragment design ating perimeter of the specimen , per therequisition. Prior to sectioning, the perimeter of the specimenis inked blue. The specimen is sec tioned and entirely submit tedas follows: CASSETTE CODE:A 5 - larger tissue fragment x 4A6 - smaller tissue fragment x 4 B) Received in for yumi labeled with "CA and en docervix" is a 1.2x 1.0 x 0.4 cm conical portion of pink -carroll soft tissue with a 0 .6cm in diameter os. Pr ior to sectioning, the endocervical marginis inked blue and all remaining radia l margins are inked orange. T he specimen is radially sectio margarita and entirely submit wendy asfollows: CASSETTE CODE:B 1 - quadrant 1 x 2B2 - quadran t 2 x 2B3 - quadrant 3 x 2B 4 - quadrant 4 x 2 PATHOLOGIST: (test (NOTE) Sulema laird M.D. Specimens code = 8250) [facility], [address] [facility] [place] [address], Phone: , CLIA: [id number] i nterpreted at Clinical Pathol [address] Pathology Department [facility], [facility] enter At [facility], [place] [address], , CLIA: [id number] DISCLAIMER (test (NOTE) IHC antibod ies are interpreted code = 82002) in the presenc e of appropriatelyfu nctioning controls unless otherwise noted. CPT: (test code = (NOTE) 03081, 883 05, 92872 UNLESS 8400) OTHERWISE INDIC ATED, ALL TESTING PERFORM ED [facility], [facility]. [address] [place] [address] LABORATORY DIRE CTOR: RAÚL FLOREZ M.D. CLIA NUMBER [id number] [place]. [id number]
[2022-05-03] MEDS ORDERED: HYDROCODONE/APAP 5/325 MG TAB ONE (15:26)
--- NOTE | 2022-05-03 16:59 | RAD REPORT ---
EXAM DESCRIPTION: RAD - Hand Left 3 View - 05/03/2022 4:18 pm CLINICAL HISTORY: PAIN COMPARISON: None. FINDINGS: No fracture, dislocation or periosteal reaction noted. No acute bone or joint finding. Sof t tissues of the hand swollen. No air or foreign body. IMPRESSION: Soft tissue swelling of the left hand with no acute bone or joint finding.
--- NOTE | 2022-05-03 17:15 | ER ---
Nurse's Notes [facility] Name: Daina Ibrahim Age: 36 yrs Sex: Female : 1985 Arrival Date: 05/03/2022 Time: 14:51 Bed IW1 Private MD: Diagnosis: Contusion of hand Presentation: 05/03 15:15 Chief complaint: Patient states: I was standing on the curb and tripped over a parking kr3 block and braced my fall with my left hand. Now my left hand in hurting, swollen and shooting pain all the way up my arm. Coronavirus screen: Vaccine status: Patient reports being unvaccinated. Client denies travel out of the [place] in the last 14 days. Ebola Screen: Patient denies travel to an Ebola-affected area in the 21 days before illness onset. Initial Sepsis Screen: Does the patient meet any 2 criteria? No. Patient's initial sepsis screen is negative. Does the patient have a suspected source of infection? No. Patient's initial sepsis screen is negative. Risk Assessment: Do you want to hurt yourself or someone else? Patient reports no desire to harm self or others. Onset of symptoms was May 03, 2022. 15:15 Method Of Arrival: Ambulatory kr3 15:15 Acuity: KARO 4 kr3 Triage Assessment: 15:20 General: Appears in no apparent distress. uncomfortable, Behavior is calm, cooperative, kr3 appropriate for age. Pain: Complains of pain in left hand. 17:34 Injury Description:. kr3 17:36 Musculoskeletal: Swelling present in left hand. kr3 MRI ASSISTANT: 17:36 LMP N/A - control method kr3 Historical: - Allergies: 15:19 ORANGES; kr3 - PSHx: 15:19 section; kr3 - Immunization history:: Adult Immunizations not up to date. - Social history:: Smoking status: Patient reports the use of cigarette tobacco products, smokes .25 packs per day, Reported history of juuling and/or vaping. Screenin:35 [facility] ED Fall Risk Assessment (Adult) History of falling in the last 3 months, kr3 including since admission Yes- single mechanical fall (1 pt) Confusion or Disorientation No (0 pts) Intoxicated or Sedated No (0 pts) Impaired Gait No (0 pts) Mobility Assist Device Used No (0 pt) Altered Elimination No (0 pt) Score/Fall Risk Level 0 - 2 = Low Risk. Abuse screen: Denies threats or abuse. Nutritional screening: No deficits noted. Tuberculosis screening: No symptoms or risk factors identified. Assessment: 17:34 Reassessment: Patient appears in no apparent distress at this time. Patient and/or kr3 family updated on plan of care and expected duration. Pain level reassessed. Patient is alert, oriented x 3, equal unlabored respirations, skin warm/dry/pink. Vital Signs: 15:15 BP 122 / 85; Pulse 85; Resp 18; Temp 98.6(TE); Pulse Ox 100% on R/A; Weight 79.83 kg; kr3 Height 5 ft. 5 in. (165.10 cm); Pain 8/10; 17:34 BP 121 / 82; Pulse 81; Resp 18; kr3 15:15 Body Mass Index 29.29 (79.83 kg, 165.10 cm) kr3 ED Course: 14:51 Patient arrived in ED. rg4 14:51 Iliana Patton FNP-C is PHCP. snw 14:51 Khris Luna MD is Attending Physician. snw 14:52 PHCP role handed off by Iliana Patton FNP-C en 14:52 Lynne Wheatley PA is PHCP. en 15:19 Triage completed. kr3 16:20 Hand Left 3 View XRAY In Process Unspecified. EDMS 17:35 seen in triage. kr3 17:35 Arm band placed on right wrist. kr3 17:35 No provider procedures requiring assistance completed. Patient did not have IV access kr3 during this emergency room visit. Administered Medications: 15:24 Drug: HYDROcodone-acetaminophen 5 mg-325 mg 1 tabs Route: PO; kr3 17:37 Follow up: Response: No adverse reaction; RASS: Alert and Calm (0) kr3 Medication: 17:36 VIS not applicable for this client. kr3 Outcome: 17:15 Discharge ordered by . en 17:36 Discharged to home ambulatory. kr3 17:36 Condition: stable 17:36 Discharge instructions given to patient, Instructed on discharge instructions, follow up and referral plans. medication usage, Demonstrated understanding of instructions, follow-up care, medications, Prescriptions given X 1. 17:37 Patient left the ED. kr3 Signatures: Dispatcher [employer] EDMS Iliana Patton, KELSI-C FACILITIES MAINTENANCE ASSISTANT-Porsha Salmon rg4 Lynne Wheatley PA PA en Reid, Kelley, RN RN kr3
--- NOTE | 2022-05-03 17:15 | EDPHYS ---
Physician Documentation [facility] Name: Daina Ibrahim Age: 36 yrs Sex: Female : 1985 Arrival Date: 05/03/2022 Time: 14:51 Bed IW1 Private MD: ED Physician Khris Luna HPI: 05/03 15:20 This 36 yrs old Female presents to ER via Ambulatory with complaints of Hand en Injury. 15:20 36 yo RHD F presents to ED with right hand pain s/p trip and fall last night. Pt fell en on speed bump last night. Pain worse today with increased swelling and DROM.. 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 - Social history:: Smoking status: Patient reports the use of cigarette tobacco products, smokes .25 packs per day, Reported history of juuling and/or vaping. ROS: 15:20 Constitutional: Negative for fever, chills, and weight loss, MS/Extremity: Left hand en swelling and pain Exam: 15:20 Constitutional: This is a well developed, well nourished patient who is awake, alert, en and in no acute distress. MS/ Extremity: DROM left hand finger 3-5 at MCP 2/2 pain, swelling and ecchymosis. TTP over 3-4 MCs. cap refill < 2 sec. Normal sensation Vital Signs: 15:15 BP 122 / 85; Pulse 85; Resp 18; Temp 98.6(TE); Pulse Ox 100% on R/A; Weight 79.83 kg; kr3 Height 5 ft. 5 in. (165.10 cm); Pain 8/10; 17:34 BP 121 / 82; Pulse 81; Resp 18; kr3 15:15 Body Mass Index 29.29 (79.83 kg, 165.10 cm) kr3 MDM: 15:20 Differential diagnosis: closed fracture, contusion, finger sprain. Data reviewed: vital en signs, nurses notes. ED course: Left hand XR ordered, po pain meds.. 15:28 Patient medically screened. en 16:26 ED course: Left hand XR interpreted by me. STS. No fx appreciated. en 17:14 ED course: No Fx seen on XR. Will dc home with motrin, jace wrap, ice and rest. en 05/03 15:16 Order name: Hand Left 3 View XRAY; Complete Time: 17:14 en Administered Medications: 15:24 Drug: HYDROcodone-acetaminophen 5 mg-325 mg 1 tabs Route: PO; kr3 17:37 Follow up: Response: No adverse reaction; RASS: Alert and Calm (0) kr3 Disposition: 18:13 Co-signature as Attending Physician, Khris Luna MD. rn Disposition Summary: 05/03/22 17:15 Discharge Ordered Location: Home en Problem: new en Symptoms: are unchanged en Condition: Stable en Diagnosis - Contusion of hand en Followup: en - With: Private Physician - When: As needed - Reason: Re-evaluation by your physician Discharge Instructions: - Discharge Summary Sheet en - Contusion, [id number] en Forms: - Medication Reconciliation Form en - Thank You Letter en - Antibiotic Education en - Prescription Opioid Use en Prescriptions: - Ibuprofen 600 mg Oral Tablet - take 1 tablet by ORAL route every 6 hours As needed take with food; 30 tablet; en Refills: 0, Product Selection Permitted Signatures: Dispatcher [employer] EDMS Khris Luna MD MD rn Newkirk, Elizabeth, PA PA en Reid, Kelley RN RN kr3
[2022-05-03 17:55] VITALS: TEMP 98.6; O2SAT 100
[2022-05-03 17:59] VITALS: BP 121/82
== END 2022-05-03 17:37 | disposition home or self-care (01) ==
LOC: ER 14:49
DX: S60.222A Contusion of left hand, initial encounter (principal)
CPT/HCPCS: 99283

== ENCOUNTER 2022-06-03 14:34 | Emergency (ER) | payer SELFPAY ==
--- OUTSIDE RECORDS SUMMARY | 2022-06-03 14:38 | XMS REPORT | Continuity of Care Document ---
:[address] [facility] t Address [address] [place] [address] Care Team Providers Name Role Phone Vanesa Live Primary Care Physician [phone] Doctor Unassigned, [place] Attending Clinician Unavailable Cassia Hidalgo Attending Clinician [phone] JUNIE CHAMBERS Attending Clinician Unavailable Junie [...] 0-12 it y of adult adult 00:00: [address] Overweight Overweight Disease Active 2021-05 U nivers (BMI (BMI 0-12 ity of 25.0-29.9) 25.0-29.9[place] [address] [place] [address] Screening Screening Disease Active 2021-05 Uni vers examinatio examinatio 0-12 it y of n for STD n for STD 00:00: Radha s (sexually (sexually 00 Medi victorino transmitte transmitte Br anch d disease) d disease) Breast Breast Disease Active 2021-05 Univers discharge discharge 0-12 ity of 00:00: [place] 00 [facility] Breast Breast Disease Active 2021-05 Univers abscess abscess 0-12 ity of 00:00: [place] [address] Medical Branch Allergies, Adverse Reactions, Alerts Allergy Allergy Status Severity Reaction(s) Onset Inactive Treating Comm ents Source Name Type Date Date Clinician NO KNOWN Drug Active Univers ALLERGIE Class ity of [facility] [place] [facility] Social History Social Habit Start Date Stop Date Quantity Comments Source Exposure to 2022-02-01 2022-02-11 Not sure [facility] SARS-CoV-2 (event) 00:00:00 09:08:00 Medica l Branch [facility] [birth year] [facility] [place] 00:[facility]:00:00 Medical Branch Smoking Status Start Date Stop Date Source Tobacco smoking consumption [facility] Branch Medications Ordered Filled Start Stop Current Ordering Indication Dosage Frequency Signature Comments Components Source Medication Medication Date Date Medication? Clinician (SIG) Name Name No known 2021-05 No No known Unive rs medications 0-12 medication it y of :30: [address] No known 2021-05 No No known Unive rs medications 0-12 medication it y of :30: [address] No known 2021-05 No No known Unive rs medications 0-12 medication it y of :30: [address] No known 2021-05 No No known Unive rs medications 0-12 medication it y of :30: [address] No known 2021-05 No No known Unive rs medications 0-12 medication it y of :30: [address] No known 2021-05 No No known Unive rs medications 0-12 medication it y of :30: [address] No known 2021-05 No No known Unive rs medications 0-12 medication it y of :30: [address] No known 2021-05 No No known Unive rs medications 0-12 medication it y of :30: [address] No known 2021-05 No No known Unive rs medications 0-12 medication it y of :30: [address] No known 2021- No No known Unive rs medications 0-12 medication it y of :30: [address] No known 2021-05 No No known Unive rs medications 0-12 medication it y of 09:30: s [address] No known 2021-05 No No known Unive rs medications 0-12 medication it y of 09:30: s [address] No known 2021-05 No No known Unive rs medications 0-12 medication it y of 09:30: s [address] Vital Signs Vital Name Observation Time Observation Value Comments Source Systolic blood 2022-02-11 14:09:00 108 mm[Hg] Univer sity of pressure [facility] Diastolic blood 2022-02-11 14:09:00 69 mm[Hg] Unive rsity of pressure [facility] Heart rate 2022-02-11 14:09:00 65 /min [facility] Body temperature 2022-02-11 14:09:00 36.61 Yanelis Univ ersity of [facility] Respiratory rate 2022-02-11 14:09:00 18 /min Univ ersity [facility] Body height 2022-02-11 14:09:00 165.1 cm [facility] Body weight 2022-02-11 14:09:00 79.878 kg [facility] BMI 2022-02-11 14:09:00 29.30 kg/m2 [facility] Procedures Procedure Date / Time Performing Clinician Source Performed EXTERNAL PROVIDER 2022-04-03 06:01:00 Doctor Unassigned, No [facility] [place] RECORDS Name Medical Branch EXTERNAL PROVIDER 2022-02-25 05:01:00 Doctor Unassigned, No [facility] [place] RECORDS Name Medical Branch BCCS-RELATED 2022-02-20 05:01:00 Doctor Unassigned, No [facility] [place] DOCUMENTATION Name Medical Branch BI DIAGNOSTIC 2022-02-13 14:43:47 Junie Chambers [facility] TOMOSYNTHESIS BILATERAL Medical Branch NOTICE OF PRIVACY 2022-02-11 13:51:06 Doctor Unassigned, No [facility] [place] PRACTICES Name Medical Branch Encounters Start End Encounter Admission Attending Care Care Encounter Source Date/Time Date/Time Type Type Clinicians Facility Department ID 2022-04-07 2022-04-07 Outpatient SFA MARTIR [id number] 11:13:39 11:13:39 [id number] F Gagandeep 2022-04-03 2022-04-03 Orders Doctor TIMBO 1.2.840.114 [id number] Univers 00:00:00 00:00:00 Only Unassigned, ROB [id number] ity of [facility] [facility] 4.2.7.2.686 Gareth as [id number] [address] 2022-03-23 2022-03-23 Telephone [facility] 1.2.840.114 [id number] Univers 00:00:00 00:00:00 Cassia C AIRLINE MECHANIC [id number] ity of REGIONAL 4.2.7.2.686 Gareth as MATERNAL [id number] Med ical & CHILD [address] [place] [address] 2022-02-25 2022-02-25 Orders Doctor TIMBO 1.2.840.114 [id number] Univers 00:00:00 00:00:00 Only Unassigned, ROB [id number] ity of [facility] [facility] 4.2.7.2.686 Gareth as [id number] [address] 2022-02-23 2022-02-23 [facility] [id number] Univers 00:00:00 00:00:00 JUNIE ity of [facility] 2022-02-20 2022-02-20 Outpatient R [facility] [id number] Univers 15:00:00 15:00:00 ity of [facility] 2022-02-20 2022-02-20 Orders Doctor TIMBO 1.2.840.114 [id number] Univers 00:00:00 00:00:00 Only Unassigned, ROB [id number] ity of [facility] 4.2.7.2.686 Gareth as [id number] [address] 2022-02-19 2022-02-19 Telephone [facility] 1.2.840.114 [id number] Univers 00:00:00 00:00:00 Cassia C AIRLINE MECHANIC [id number] ity of REGIONAL 4.2.7.2.686 Gareth as MATERNAL [id number] [facility] ical & CHILD [address] [place] [address] 2022-02-16 2022-02-16 Telephone [facility] 1.2.840.114 [id number] Univers 00:00:00 00:00:00 Junie S HEALTH [id number] it [place] - [id number] Med [address] 2022-02-13 2022-02-13 [facility]patient [facility] [id number] Univers 09:43:47 23:59:00 JUNIE ity of [facility] 2022-02-13 2022-02-13 [facility] 1.2.840.114 [id number] Univers 09:43:47 23:59:00 Encounter Junie S SPECIALTY [id number] [place] [id number] [place] [id number] [facility] 2022-02-12 2022-02-12 Telephone [facility] 1.2.840.114 [id number] Univers 00:00:00 00:00:00 Junie S HEALTH [id number] it [place] - [id number] Med [address] 2022-02-11 2022-02-11 Office [facility] 1.2.840.114 [id number] Univers 08:45:00 11:03:34 Visit Vanesa Lemus AIRLINE MECHANIC 350.1.13.10 ity of REGIONAL 4.2.7.2.686 Gareth as MATERNAL [id number] Med ical & CHILD [address] [place] [address] 2022-02-11 2022-02-11 [facility]patient [facility] [id number] Univers 08:45:00 11:03:34 VANESA ivey o f [facility] 2022-02-11 2022-02-11 Orders Doctor TIMBO 1.2.840.114 [id number] Univers 00:00:00 00:00:00 Only Unassigned, ROB 350.1.13.10 ity of [facility] [facility] 4.2.7.2.686 Gareth as [id number] [facility] [address] [place] 2022-02-11 2022-02-11 DORITA Stahl 1.2.840.114 [id number] Univers 00:00:00 00:00:00 (Out) Vanesa Lemus AIRLINE MECHANIC 350.1.13.10 ity of [facility] 4.2.7.2.686 Gareth as MATERNAL [id number] Med ical & CHILD [address] [facility] Results Test Description Test Time Test Comments Results Result [facility] e Comments BREAST ULTRASOUND 2022-01-28 BILATERAL 11:43:55 Name: Daina: 1985 Sex: F - DIAG MAMM BILATERAL BLAYNE CAD DIGITAL - BREAST ULTRASOUND BILATERALBILATERAL DIGITAL DIAGNOSTIC MAMMOGRAM 3D/2D WITH CAD: 2CLINICAL: Discharge, left breast, Xthree weeks.Diffuse pain and swelling, left breast, Xthree weeks. Digital breast tomosynthesis was performed in addition to routine CC and MLO views. Current mammographic images were evaluated by [employer] CAD (computer-aided detection) software. Comparison is made to exams dated 07/06/2019 mammogram, 06/23/2019 ultrasound, 06/23/2019 mammogram, and 06/14/2019 mammogram - [facility]. The tissue of both breasts [...] ultrasound, 06/23/2019 mammogram, and 06/14/2019 mammogram - [facility]. Color flow and real-time ultrasound [...] - 01/28/2022 12:05:51Imaging Technologist: Radha SOTELO, [facility]-; Sabine SOTELO, [facility]-letter sent: Short Term Follow Up [...] BILATERALBILATERAL DIGITAL DIAGNOSTIC MAMMOGRAM 3D/2D WITH CAD: 01/28/2022LINICAL: Discharge, left breast, Xthree weeks.Diffuse pain and swelling, left breast, Xthree weeks. Digital breast tomosynthesis was performed in addition to routine CC and MLO views. Current mammographic images were evaluated by [employer] CAD (computer-aided detection) software. Comparison is made to exams dated 07/06/2019 mammogram, 06/23/2019 ultrasound, 06/23/2019 mammogram, and 06/14/2019 mammogram - [facility]. The tissue of both breasts [...] ultrasound, 06/23/2019 mammogram, and 06/14/2019 mammogram - [facility]. Color flow and real-time ultrasound [...] - 01/28/2022 12:05:51Imaging Technologist: Radha SOTELO, [facility]-; Sabine SOTELO, [facility]-letter sent: Short Term Follow Up Mammogram BI-RADS: 0 Incomplete: Additional Imaging Evaluation Needed Ultrasound BI-RADS: 3 Probably benign DIAG MAMM 2022-01-28 BILATERAL BLAYNE 11:43:55 CAD DIGITAL Name: Daina JAQUI: 1985 Sex: F AMENDMENT: 03/06/2022 Kalpana Ray M.D. RECOMMENDATIONS:1. Left breast: In view of patient's complaint of recurrent breast abscesses, would recommend skin punch biopsy at the 2 o'clock position, 2 cm from the nipple, at time of abscess drainage. Amended BI-RADS: 3 Probably benign APARNA REFLEX AUTOIMMUNE AB PROFILE 2021-10-10 12:48:05 Test Item Value Reference Range Interpretation Comme nts ANTI-NUCLEAR ANTIBODIES (test NEGATIVE NEGATIVE Methodology is Indirect code = 3506) Immunofluoresce nt Assay (IFA) with a titering syst em using [id number] cells (Hep2 yanelis ls transfected with SS-A/Ro). SEDIMENTATION [id number] 09:32:29 Test Item Value Reference Range Interpretation Comments SEDIMENTATION RATE (test code = 2 MM/HOUR 0-20 1017) C-REACTIVE [id number] 06:45:15 Test Item Value Reference Range Interpretation Comments C-REACTIVE PROTEIN (test code = <0.3 MG/DL <0.5 3513) RHEUMATOID FACTOR, [id number] 06:45:15 Test Item Value Reference Range Interpretation Comments RHEUMATOID FACTOR, QUANT (test code <10 IU/ML <14 = 3502) URIC [id number] 06:27:17 Test Item Value Reference Range Interpretation Comments URIC ACID (test code = 2233) 4.9 MG/DL 2.7-6.1 VITAMIN D, 25 [id number] 06:02:09 Test Item Value Reference Range Interpretation [...] [facility] [place]. [address] [place] [address] LABORATORY DIRE CTOR: Rosy CONROY. CLIA NUMBER [id number] CAP ACCREDITATION N O. [id number] SURGICAL PATHOLOGY [id number] 16:54:23 Test Item Value Reference Range Interpretation Comments DIAGNOSIS: (test (NOTE) A) Conizati on (LEEP) - code = 8200) EctocervixAcute and chronic cervicitis with prior procedure site changes;no residual dyspla jose armando identified (see Comment) B ) Biopsy - EndocervixBenig n endocervical mucosa COMMENTS: (test (NOTE) The patient has a history of code = 8205) high-grade squa mous intraepithelial lesion (see [id number]). the prior case was reviewed and th ediagnoses confirmed. The current case shows mixed inf lammationwith reactive change s suggesting prior procedure sites. Multipleadditio nal levels from each block were evaluated with [id number] hemical stains, but no residual dysplasia and [...] M.D. Specimens code = 8250) [facility], [address] [place] [address], Phone: , CLIA: [id number] i nterpreted at Clinical Pathol [address] Pathology Department [facility], [facility] C enter At [facility], [place] [address], , CLIA: [id number] DISCLAIMER (test (NOTE) IHC antibod ies are interpreted code = 95624) in the presenc e of appropriatelyfu nctioning controls unless otherwise noted. CPT: (test code = (NOTE) 30478, 883 05, 36184 UNLESS 8400) OTHERWISE INDIC ATED, ALL TESTING PERFORM ED [facility] [employer] [place], [facility]. [address] [place] [address] LABORATORY DIRE CTOR: RAÚL FLOREZ M.D. CLIA NUMBER [id number] [place]. [id number]
[2022-06-03 16:04] LABS: Urine Blood Negative (Negative); Urine Glucose Negative (Negative); Urine Protein Negative (Negative); Urine Specific Gravity >=1.030 (1.005-1.030); Urine pH 5.5 (5.0-7.0)
[2022-06-03] MEDS ORDERED: NA CHLORIDE 0.9% 1,000 ML ONE (16:14)
[2022-06-03] MEDS ORDERED: ONDANSETRON 4 MG/2 ML VIAL ONE ×2 (16:15→19:00)
[2022-06-03] MEDS ORDERED: PANTOPRAZOLE 40 MG INJ ONE (16:15)
[2022-06-03 16:18] LABS: Absolute Lymphocytes (CBC) 2.3 K/uL (0.7-4.9); Hematocrit 41.4 % (36.0-45.0); Lymphocytes % 26.8 % (15.3-44.8); MCV 94.4 fL (80-100); MPV 8.2 fL (7.6-11.3); RBC Red Blood Cell Count 4.39 M/uL (3.86-4.86)
[2022-06-03 16:22] LABS: Urine Specific Gravity/Preg >1.030 (1.005-1.030)
[2022-06-03 16:24] LABS: Urine Bacteria None Seen /HPF (<20); Urine Mucus 1+ /HPF (None Seen); Urine RBC <5 /HPF (None Seen)
[2022-06-03 16:37] LABS: Albumin 3.5 g/dL (3.4-5.0); Bilirubin Total 0.2 mg/dL (0.2-1.0); Potassium 3.7 mmol/L (3.5-5.1)
--- NOTE | 2022-06-03 17:26 | RAD REPORT ---
EXAM DESCRIPTION: CT - Abdomen Pelvis W Contrast - 06/03/2022 5:12 pm CLINICAL HISTORY: Abdominal pain COMPARISON: 2020 TECHNIQUE: Computed axial tomography of the abdomen pelvis was obtained. 100 cc Isovue-300 was admin istered intravenously. Oral contrast was not requested which limits evaluation of bowel and appendix All CT scans are performed using dose optimization technique as appropriate and may include automated exposure control or mA/KV adjustment according to patient size. FINDINGS: The liver, spleen, pancreas, adrenal and kidneys appear unremarkable. There is no evidence of diverticulitis. An abnormal appendix is not visualized 2 centimeter right ovarian cyst without significant free fluid A small to moderate umbilical hernia contains fat IMPRESSION: 2 centimeter right ovarian cyst without significant free fluid
[2022-06-03 17:33] LABS: Protime INR 0.96
[2022-06-03] MEDS ORDERED: KETOROLAC 30 MG/ML INJ ONE (17:56)
[2022-06-03] MEDS ORDERED: MORPHINE 4 MG/ML SYR ONE (17:56)
[2022-06-03] MEDS ORDERED: Ringers Lactate 1,000 ML IV ONE (19:06)
--- NOTE | 2022-06-03 19:42 | EDPHYS ---
Physician Documentation [facility] Name: Daina Ibrahim Age: 36 yrs Sex: Female : 1985 Arrival Date: 06/03/2022 Time: 14:37 Bed 16 Private MD: ED Physician Sohan Rodriguez HPI: 06/03 16:13 This 36 yrs old Female presents to ER via Ambulatory with complaints of kb Black/Tarry Stools, Bloody Stools, Nausea, Abdominal Pain. 16:13 The patient presents to the emergency department with rectal bleeding. The patient has kb not experienced similar symptoms in the past. The patient has not recently seen a physician. 16:13 Onset: The symptoms/episode began/occurred 6 day(s) ago. Abdominal pain: described as kb crampy, located in the abdomen diffusely, that does not radiate. Modifying factors: The symptoms are alleviated by nothing, the symptoms are aggravated by nothing. Associated signs and symptoms: Pertinent positives: vomiting. Severity of symptoms: At their worst the symptoms were moderate in the emergency department the symptoms are unchanged. Patient is a 36-year-old female with no known medical history who presents for black stool that started 6 days ago, abdominal pain, nausea and vomiting that started yesterday.. 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:16 LMP N/A - Irregular menses jh5 Historical: - Allergies: 14:57 ORANGES; ll1 - Home Meds: 17:27 atorvastatin 40 mg oral tab 1 tab once daily [Active]; carvedilol 25 mg oral tab 1 tab jh5 2 times per day [Active]; cholecalciferol (vitamin D3) 25 mcg (1,000 unit) oral cap [Active]; clonidine HCl 0.1 mg Oral Tb12 1 tab once daily [Active]; clopidogrel 75 mg oral tab [Active]; Nifedipine ER Oral 30 mg [Active]; nitroglycerin 0.4 mg SL subl [Active]; Prinivil 20 mg Oral tab [Active]; spironolactone 25 mg Oral tab [Active]; terazosin 1 mg oral cap [Active]; thiamine HCl (vitamin B1) 100 mg Oral tab [Active]; - PMHx: 14:57 None; ll1 - PSHx: 14:57 section; ll1 - Immunization history:: Client reports having NOT received the Covid vaccine. - Social history:: Smoking status: Patient reports the use of cigarette tobacco products, denies chronic smoking, but will smoke occasionally, Reported history of juuling and/or vaping. ROS: 16:11 Constitutional: Negative for fever, chills, and weight loss. kb 16:11 Abdomen/GI: Positive for abdominal pain, nausea and vomiting, black/tarry stool, rectal bleeding. 16:11 All other systems are negative. Exam: 16:11 Constitutional: This is a well developed, well nourished patient who is awake, alert, kb and in no acute distress. Head/Face: Normocephalic, atraumatic. ENT: Moist Mucous membranes Cardiovascular: Regular rate and rhythm with a normal S1 and S2. No gallops, murmurs, or rubs. No pulse deficits. Respiratory: Respirations even and unlabored. No increased work of breathing. Talking in full sentences Skin: Warm, dry with normal turgor. Normal color. MS/ Extremity: Pulses equal, no cyanosis. Neurovascular intact. Full, normal range of motion. Neuro: Awake and alert, GCS 15, oriented to person, place, time, and situation. Moves all extremities. Normal gait. Psych: Awake, alert, with orientation to person, place and time. Behavior, mood, and affect are within normal limits. 16:11 Abdomen/GI: Inspection: abdomen appears normal, Bowel sounds: normal, Palpation: soft, in all quadrants, mild abdominal tenderness, in the right lower quadrant and left lower quadrant, moderate abdominal tenderness, in the right upper quadrant and left upper quadrant. 16:17 Abdomen/GI: Rectal exam: is unremarkable. kb Vital Signs: 14:58 BP 134 / 82; Pulse 90; Resp 17; Temp 98.0; Pulse Ox 100% ; Weight 81.65 kg; Height 5 ll1 ft. 5 in. (165.10 cm); Pain 8/10; 17:33 BP 114 / 69; Pulse 60; Resp 16; Pulse Ox 100% ; jh5 19:09 BP 112 / 72; Pulse 68; Resp 16; Pulse Ox 100% ; jh5 14:58 Body Mass Index 29.95 (81.65 kg, 165.10 cm) ll1 MDM: 15:19 Patient medically screened. kb 15:25 ED course: Patient is a 36-year-old female who presents with dark stools, nausea, kb vomiting, abdominal pain. Patient drinks about a 12 pack of beer per day. Denies ever having GI bleed. Physical exam positive for abdominal tenderness that is diffuse but worse in the upper quadrants. Will obtain serum labs, urinalysis and CT scan.. 16:09 Data reviewed: vital signs, nurses notes. Transition of care: After a detail discussion kb of the patient's case, care is transferred to Knu MARTIN. 19:40 ED course: Patient is alert nontoxic in appearance in the ED. Pain is relieved in the [facility] ED. CT is negative. I suspect most likely a viral gastroenteritis. Patient did admit to some bleeding. Rectal exam per Cherelle Abbott, [employer] did not appreciate any melena. Most likely a lower GI bleed. Blood counts are normal. Patient is normotensive. I did recommend the patient follow-up with GI for further evaluation otherwise and strict return precautions. Patient understood and agrees plan of care.. 06/03 15:30 Order name: CBC with Diff; Complete Time: 16:30 kb 06/03 15:30 Order name: CMP; Complete Time: 16:38 kb 06/03 15:30 Order name: Lipase; Complete Time: 16:38 kb 06/03 15:30 Order name: Urine Microscopic Only; Complete Time: 16:27 kb 06/03 16:04 Order name: Urine Dipstick-Ancillary; Complete Time: 16:05 EDCO 06/03 16:12 Order name: Urine --Ancillary (enter results); Complete Time: 16:23 bd 06/03 15:30 Order name: CT Abd/Pelvis - IV Contrast Only; Complete Time: 17:29 kb 06/03 16:13 Order name: PT-INR; Complete Time: 17:42 kb 06/03 15:30 Order name: IV Saline Lock; Complete Time: 16:02 kb 06/03 15:30 Order name: Labs collected and sent; Complete Time: 16:02 kb 06/03 15:30 Order name: Urine Dipstick-Ancillary (obtain specimen); Complete Time: 16:02 kb 06/03 15:30 Order name: Urine Test (obtain specimen); Complete Time: 16:02 kb Administered Medications: 16:26 Drug: NS 0.9% 1000 ml Route: IV; Rate: 1 bolus; Site: left antecubital; jh5 16:26 Drug: Zofran (Ondansetron) 4 mg Route: IVP; Site: left antecubital; 5 16:26 Drug: ProTONIX (pantoprazole) 40 mg Route: IVP; Site: left antecubital; 5 17:55 Drug: morphine 4 mg Route: IVP; Infused Over: 4 mins; Site: right antecubital; 5 17:55 Drug: Ketorolac 30 mg Route: IVP; Site: right antecubital; [facility] 19:06 Drug: Zofran (Ondansetron) 4 mg Route: IVP; Site: right forearm; [facility] Disposition Summary: 06/03/22 19:41 Discharge Ordered Location: Home [facility] Condition: Stable [facility] Diagnosis - Other ovarian cysts jm - Diarrhea, unspecified [facility] - Vomiting [facility] Followup: [facility] - With: Arthur Raymundo MD - When: 2 - 3 days - Reason: Recheck today's complaints, Continuance of care, Re-evaluation by your physician Discharge Instructions: - Food Choices to Help Relieve Diarrhea, Adult jm - Diarrhea, Adult [facility] - Discharge Summary Sheet [facility] - Vomiting, Adult [facility] Forms: - SBAR form 5 - Medication Reconciliation Form [facility] - Thank You Letter [facility] - Antibiotic Education [facility] - Prescription Opioid Use [facility] Prescriptions: - ondansetron 4 mg Oral tablet,disintegrating - take 1 tablet by ORAL route every 4-6 hours As needed; 20 tablet; Refills: 0, [facility] Product Selection Permitted - Pepcid 20 mg Oral Tablet - take 1 tablet by ORAL route every 12 hours for 10 days; 20 tablet; Refills: 0, [facility] Product Selection Permitted - dicyclomine 20 mg Oral Tablet - take 1 tablet by ORAL route 4 times per day As needed; 30 tablet; Refills: 0, [facility] Product Selection Permitted Signatures: Dispatcher [employer] Erika Newman, ABDIRIZAK DOLAN-Kun Majano PA PA jmm Lewis, Lynsay, RN RN ll1 Laura Dykes RN RN jh5
--- NOTE | 2022-06-03 19:42 | ER ---
Nurse's Notes [facility] Name: Daina Ibrahim Age: 36 yrs Sex: Female : 1985 Arrival Date: 06/03/2022 Time: 14:37 Bed 16 Private MD: Diagnosis: Other ovarian cysts;Diarrhea, unspecified;Vomiting Presentation: 06/03 14:58 Chief complaint: Patient states: Noticed black stool on Wednesday. Has had N/V with abd ll1 cramping since. No fever. Coronavirus screen: Vaccine status: Patient reports being unvaccinated. Client denies travel out of the [place] in the last 14 days. At this time, the client does not indicate any symptoms associated with coronavirus-19. Ebola Screen: Patient denies travel to an Ebola-affected area in the 21 days before illness onset. Initial Sepsis Screen: Does the patient meet any 2 criteria? No. Patient's initial sepsis screen is negative. Does the patient have a suspected source of infection? Yes: Acute abdominal pain. Risk Assessment: Do you want to hurt yourself or someone else? Patient reports no desire to harm self or others. Onset of symptoms was May 29, 2022. 14:58 Method Of Arrival: Ambulatory ll1 14:58 Acuity: KARO 3 ll1 Triage Assessment: 14:58 General: Appears uncomfortable, Behavior is calm, cooperative, appropriate for age. ll1 Pain: Complains of pain in abdomen Quality of pain is described as aching, crampy. GI: Reports bloody stool, nausea, black stool. [employer]: 17:16 LMP N/A - Irregular menses jh5 Historical: - Allergies: 14:57 ORANGES; ll1 - Home Meds: 17:27 atorvastatin 40 mg oral tab 1 tab once daily [Active]; carvedilol 25 mg oral tab 1 tab jh5 2 times per day [Active]; cholecalciferol (vitamin D3) 25 mcg (1,000 unit) oral cap [Active]; clonidine HCl 0.1 mg Oral Tb12 1 tab once daily [Active]; clopidogrel 75 mg oral tab [Active]; Nifedipine ER Oral 30 mg [Active]; nitroglycerin 0.4 mg SL subl [Active]; Prinivil 20 mg Oral tab [Active]; spironolactone 25 mg Oral tab [Active]; terazosin 1 mg oral cap [Active]; thiamine HCl (vitamin B1) 100 mg Oral tab [Active]; - PMHx: 14:57 None; ll1 - PSHx: 14:57 section; ll1 - Immunization history:: Client reports having NOT received the Covid vaccine. - Social history:: Smoking status: Patient reports the use of cigarette tobacco products, denies chronic smoking, but will smoke occasionally, Reported history of juuling and/or vaping. Screenin:16 [facility] ED Fall Risk Assessment (Adult) History of falling in the last 3 months, [facility] including since admission No falls in past 3 months (0 pts) Confusion or Disorientation No (0 pts) Intoxicated or Sedated No (0 pts) Impaired Gait No (0 pts) Mobility Assist Device Used No (0 pt) Altered Elimination No (0 pt) Score/Fall Risk Level 0 - 2 = Low Risk. Abuse screen: Denies threats or abuse. Denies injuries from another. Nutritional screening: No deficits noted. Tuberculosis screening: No symptoms or risk factors identified. Vital Signs: 14:58 BP 134 / 82; Pulse 90; Resp 17; Temp 98.0; Pulse Ox 100% ; Weight 81.65 kg; Height 5 ll1 ft. 5 in. (165.10 cm); Pain 8/10; 17:33 BP 114 / 69; Pulse 60; Resp 16; Pulse Ox 100% ; jh5 19:09 BP 112 / 72; Pulse 68; Resp 16; Pulse Ox 100% ; 5 14:58 Body Mass Index 29.95 (81.65 kg, 165.10 cm) 1 ED Course: 14:37 Patient arrived in ED. rg4 14:59 Triage completed. 1 14:59 Arm band placed on. 1 15:00 Erika Abbott FNP-C is PHCP. kb 15:00 Sohan Rodriguez MD is Attending Physician. kb 15:15 Patient placed in an exam room, on a stretcher. 1 16:09 PHCP role handed off by Erika Abbott FNP-C [facility] 16:09 Kun Rosen PA is PHCP. [facility] 17:14 CT Abd/Pelvis - IV Contrast Only In Process Unspecified. EDMS 17:16 Patient has correct armband on for positive identification. Bed in low position. Call [facility] light in reach. Side rails up X 1. 17:16 No provider procedures requiring assistance completed. [facility] 19:41 Arthur Raymundo MD is Referral Physician. [facility] 19:56 IV discontinued, intact, bleeding controlled, No redness/swelling at site. Pressure 5 dressing applied. Administered Medications: 16:26 Drug: NS 0.9% 1000 ml Route: IV; Rate: 1 bolus; Site: left antecubital; 5 16:26 Drug: Zofran (Ondansetron) 4 mg Route: IVP; Site: left antecubital; 5 16:26 Drug: ProTONIX (pantoprazole) 40 mg Route: IVP; Site: left antecubital; 5 17:55 Drug: morphine 4 mg Route: IVP; Infused Over: 4 mins; Site: right antecubital; jh5 17:55 Drug: Ketorolac 30 mg Route: IVP; Site: right antecubital; 5 19:06 Drug: Zofran (Ondansetron) 4 mg Route: IVP; Site: right forearm; 5 Medication: 19:10 VIS not applicable for this client. 5 Outcome: 19:41 Discharge ordered by . [facility] 19:56 Discharged to home ambulatory. [facility] 19:56 Condition: good 19:56 Discharge instructions given to patient, Instructed on discharge instructions, follow up and referral plans. medication usage, safety practices, Demonstrated understanding of instructions, follow-up care, medications, Prescriptions given X 3. 19:56 Patient left the ED. 5 Signatures: Dispatcher [employer] EDMS Erika Abbott, ABDIRIZAK FERNANDEZP-Kun Majano PA PA jmm Garcia, Rubi rg4 Geronimo Ziegler, RN RN 1 Laura Dykes RN RN jh5
[2022-06-03 20:14] VITALS: TEMP 98; O2SAT 100
[2022-06-03 20:16] VITALS: BP 112/72
== END 2022-06-03 19:56 | disposition home or self-care (01) ==
LOC: ER 14:34
DX: R19.7 Diarrhea, unspecified (principal); R11.10 Vomiting, unspecified; N83.299 Other ovarian cyst, unspecified side
CPT/HCPCS: 36415; 74177; 80053; 81003; 81015; 81025; 83690; 85025; 85610; C9113; J2405; J7030; J7120; Q9967

== ENCOUNTER 2023-04-09 12:34 | Emergency (ER) | payer OTHER ==
--- OUTSIDE RECORDS SUMMARY | 2023-04-09 12:36 | XMS REPORT | Continuity of Care Document ---
Author Name Unknown Address [address] [facility] [address]. [address] [place] [address] [facility] Address [address] [facility]. [address] [place] [address] Care Team Providers Care Sugar Coating Hand Name Role Phone Vanesa Live Primary Care Physician Un available CASSIA MELISSA Attending Clinician Unavail able MITRA MCCARTHY Attending Clinician UnavailMitra Ribeiro CNM Attending Clinician [phone] Belén Cassia TINEO Attending Clinician + Tyson Hernandez MD Attending Clinician [phone] TYSON HERNANDEZ Attending Clinician Unavailable Doctor Unassigned, [place] Attending Clinician U navailJUNIE Watson Attending Clinician UnavailJunie Hughes MD Attending Clinician [phone] Vanesa Live Attending Clinician + [phone] VANESA TIDWELL Attending Clinician Unavailab le Payers Payer Name Policy Type Policy Number Effective Date Expirati on Date Source [facility] [id number] 2022 00:00:00 Problems Condition Name Condition Details Condition Category Status Onset Date Resolution Date Last Treatment Date Treating Clinician Comments Source Screening examinatio n for STD (sexually transmitte d disease) Screening examinatio n for STD (sexually transmitte d disease) Disease Active 2021-05 0-12 00:00: 00 [facility] Breast discharge Breast discharge Disease Active 2021-05 00:00: 00 [facility] Breast abscess Breast abscess Disease Active 2021-05 00:00: 00 [facility] BMI 29.0-29.9, adult BMI 29.0-29.9, adult Disease Active 2021-05 00:00: 00 [facility] Overweight (BMI 25.0-29.9) Overweight (BMI 25.0-29.9) Disease Active 2021-05 00:00: 00 [facility] Allergies, Adverse Reactions, Alerts Allergy Name Allergy Type Status Severity Reaction(s) Onset Date Inactive Date Treating Clinician Comments Source [facility] Active Rash 08-31 00:00: 00 [facility] White Propensi ty to adverse reaction s Active Rash 08-31 00:00: 00 [facility] NO KNOWN ALLERGIE S Drug Class Active [facility] Social History Social Habit Start Date Stop Date Quantity Comments Source Gender identity [facility] Sexual orientation U [facility] Exposure to SARS-CoV-2 (event) 2022-08-21 00:00:00 2022-08-31 14:28:00 Not sure [facility] History of Social function 2022-02-11 00:00:00 2022-02-11 00:00:00 [facility] Sex Assigned At 1985 00:00:00 1985 00:00:00 [facility] Smoking Status Start Date Stop Date Source Tobacco smoking consumption unknown [facility] Medications Ordered Medication Name Filled Medication Name Start Date Stop Date Current Medication? Ordering Clinician Indication Dosage Frequency Signature (SIG) Comments Components Source pantoprazol e 40 mg EC tablet 08-31 00:00: 00 10-15 04:59 :00 No [id number] Take 1 tablet by mouth daily for 14 days, THEN 1 tablet daily for 30 days. [facility] famotidine (PEPCID) 20 mg tablet 08-31 00:00: 00 09-08 04:59 :00 No [id number] 20mg Take 1 tablet by mouth in the morning and 1 tablet in the evening. Do all this for 7 days. [facility] No known medications 2021-05 012 09:30: 28 No No known medication s [facility] No known medications 2021-05 0-12 09:30: 28 No No known medication s [facility] No known medications 2021-05 0-12 09:30: 28 No No known medication s [facility] No known medications 2021-05 012 09:30: 28 No No known medication s [facility] No known medications 2021-05 012 09:30: 28 No No known medication s [facility] No known medications 2021-05 012 09:30: 28 No No known medication s [facility] No known medications 2021-05 012 09:30: 28 No No known medication s [facility] No known medications 2021-05 012 09:30: 28 No No known medication s [facility] No known medications 2021-05 012 09:30: 28 No No known medication s [facility] No known medications 2021-05 012 09:30: 28 No No known medication s [facility] No known medications 2021-05 012 09:30: 28 No No known medication s [facility] No known medications 2021-05 012 09:30: 28 No No known medication s [facility] No known medications 2021-05 012 09:30: 28 No No known medication s [facility] Vital Signs Vital Name Observation Time Observation Value Comments S otilio Systolic blood pressure 2022-08-31 19:37:00 117 mm[Hg] [facility] Diastolic blood pressure 2022-08-31 19:37:00 81 mm[Hg] [facility] Heart rate 2022-08-31 19:37:00 65 /min [facility] Respiratory rate 2022-08-31 19:37:00 18 /min [facility] Oxygen saturation in Arterial blood by Pulse oximetry 2022-08-31 19:37:00 99 /min [facility] Body temperature 2022-08-31 17:47:00 37.11 Thais [facility] Body weight 2022-08-31 17:47:00 79.379 kg [facility] BMI 2022-08-31 17:47:00 29.12 kg/m2 [facility] Systolic blood pressure 2022-02-11 14:09:00 108 mm[Hg] [facility] Diastolic blood pressure 2022-02-11 14:09:00 69 mm[Hg] [facility] Heart rate 2022-02-11 14:09:00 65 /min [facility] Body temperature 2022-02-11 14:09:00 36.61 Thais [facility] Respiratory rate 2022-02-11 14:09:00 18 /min [facility] Body height 2022-02-11 14:09:00 165.1 cm [facility] Body weight 2022-02-11 14:09:00 79.878 kg [facility] BMI 2022-02-11 14:09:00 29.30 kg/m2 [facility] Procedures Procedure Date / Time Performed Performing Clinician Source LIPASE 2022-08-31 18:19:00 Tyson Hernandez [facility] COMP. METABOLIC PANEL (21534) 2022-08-31 18:19:00 Tyson Hernandez [facility] CBC WITH DIFF 2022-08-31 18:19:00 Tyson Hernandez [facility] CONSENT/REFUSAL FOR DIAGNOSIS AND TREATMENT 2022-08-31 17:31:28 Doctor Unassigned, [place] [facility] EXTERNAL PROVIDER RECORDS 2022-04-03 06:01:00 Doctor Unassigned, [place] [facility] EXTERNAL PROVIDER RECORDS 2022-02-25 05:01:00 Doctor Unassigned, [place] [facility] BCCS-RELATED DOCUMENTATION 2022-02-20 05:01:00 Doctor Unassigned, [place] [facility] BI DIAGNOSTIC TOMOSYNTHESIS BILATERAL 2022-02-13 14:43:47 Junie Chambers [facility] NOTICE OF PRIVACY PRACTICES 2022-02-11 13:51:06 Doctor Unassigned, [place] [facility] Encounters Start Date/Time End Date/Time Encounter Type Admission Type Attending Clinicians Care Facility Care Department Encounter ID Source 2023-02-22 09:00:00 2023-02-22 09:00:00 Outpatient R CASSIA MELISSA [facility] [id number] [facility] 2022-12-09 00:00:00 2022-12-09 00:00:00 Telephone Mitra Mccarthy [facility] HAND ETCHER HELPER [facility] MATERNAL & CHILD [facility] 1.2.840.114 350.1.13.10 4.2.7.2.686 [id number] [facility] 2022-11-11 00:00:00 2022-11-11 00:00:00 Telephone Cassia Melissa [facility] HAND ETCHER HELPER [facility] & CHILD [facility] 1.2.840.114 350.1.13.10 4.2.7.2.686 [id number] [facility] 2022-11-10 13:18:33 2022-11-10 13:18:33 Outpatient [facility] [id number] Hunter Donis 2022-08-31 12:48:00 2022-08-31 14:40:00 Emergency Tyson Hernandez [facility] ..840.114 350.1.13.10 4.2.7.2.686 [id number] [facility] 2022-08-31 12:48:00 2022-08-31 14:40:00 Emergency X TYSON HERNANDEZ [facility] ERT [id number] [facility] 2022-04-07 11:13:39 2022-04-07 11:13:39 Outpatient [facility] [id number] Hunter Donis 2022-04-03 00:00:00 2022-04-03 00:00:00 Orders Only Doctor Unassigned, [place] [facility] 1..114 350.1.13.10 4.2.7.2.686 [id number] [facility] 2022-03-23 00:00:00 2022-03-23 00:00:00 Telephone Cassia Melissa [facility] HAND ETCHER HELPER [facility] MATERNAL & CHILD [facility] 1.0.114 350.1.13.10 4.2.7.2.686 [id number] [facility] 2022-02-25 00:00:00 2022-02-25 00:00:00 Orders Only Doctor Unassigned, [place] [facility] 1..114 350.1.13.10 4.2.7.2.686 [id number] [facility] 2022-02-23 00:00:00 2022-02-23 00:00:00 Outpatient R JUNIE CHAMBERS [facility] [id number] [facility] 2022-02-20 15:00:00 2022-02-20 15:00:00 Outpatient R [facility] [id number] [facility] 2022-02-20 00:00:00 2022-02-20 00:00:00 Orders Only Doctor Unassigned, [place] [facility] ..114 350.1.13.10 4.2.7.2.686 [id number] [facility] 2022-02-19 00:00:00 2022-02-19 00:00:00 Telephone Cassia Melissa [facility] HAND ETCHER HELPER [facility] & CHILD [facility] 1..114 350.1.13.10 4.2.7.2.686 [id number] [facility] 2022-02-16 00:00:00 2022-02-16 00:00:00 Telephone Junie Chambers [facility][1] 1.2.840.114 350.1.13.10 4.2.7.2.686 [id number] [facility] 2022-02-13 09:43:47 2022-02-13 23:59:00 Outpatient R JUNIE CHAMBERS [facility] [id number] [facility] 2022-02-13 09:43:47 2022-02-13 23:59:00 Hospital Encounter [facility] 1..114 350.1.13.10 4.2.7.2.686 [id number] [facility] 2022-02-12 00:00:00 2022-02-12 00:00:00 Telephone Henry Junie [facility] 1.84.114 350.1.13.10 4.2.7.2.686 [id number] [facility] 2022-02-11 08:45:00 2022-02-11 11:03:34 Office Visit Vanesa Tidwell [facility] HAND ETCHER HELPER [facility]NAL & CHILD [facility] 1.84.114 350.1.13.10 4.2.7.2.686 [id number] [facility] 2022-02-11 08:45:00 2022-02-11 11:03:34 Outpatient R VANESA TIDWELL [facility] [id number] [facility] 2022-02-11 00:00:00 2022-02-11 00:00:00 Orders Only Doctor Unassigned, [place] [facility] 1..114 350.1.13.10 4.2.7.2.686 [id number] [facility] 2022-02-11 00:00:00 2022-02-11 00:00:00 Letter (Out) Vanesa Tidwell [facility] HAND ETCHER HELPER [facility] MATERNAL & CHILD [facility] 1..840.114 350.1.13.10 4.2.7.2.686 [id number] [facility] Results Test Description Test Time Test Comments Results Result Co mments Source [facility] Test Item Value Reference Range Interpretation Comme nts LIPASE (test code = 0381588698) 75 U/L 0-220 Lab Interpretation (test cod e = 70918-4) Normal [facility] [id number] 18:34:05* Test Item Value Reference Range Interpretation Comme nts WBC (test code = 6690-2) 7.76 See_Comment [Automated Curvoa ge] The system which generated this result transmitted reference range: 4.30 - 11.10 10*3/?L. The reference range was not used to interpret this result as normal/abnormal. RBC (test code = 789-8) 4.39 See_Comment [Automated messa ge] The system which generated this result transmitted reference range: 3.93 - 5.25 10*6/?L. The reference range was not used to interpret this result as normal/abnormal. HGB (test code = 718-7) 14.0 g/dL 11.6-15.0 HCT (test code = 4544-3) 40.9 % 35.7-45.2 MCV (test code = 787-2) 93.2 fL 80.6-95.5 MCH (test code = 785-6) 31.9 pg 25.9-32.8 MCHC (test code = 786-4) 34.2 g/dL 31.6-35.1 RDW-SD (test code = 98104-9) 43.8 fL 39.0-49.9 RDW-CV (test code = 788-0) 12.8 % 12.0-15.5 PLT (test code = 777-3) 341 See_Comment [Automated messa ge] The system which generated this result transmitted reference range: 166 - 358 10*3/?L. The reference range was not used to interpret this result as normal/abnormal. MPV (test code = 62920-9) 10.0 fL 9.5-12.9 NRBC/100 WBC (test code = 6992589912) 0.0 See_Comment [Automated me ssage] The system which generated this result transmitted reference range: 0.0 - 10.0 /100 WBCs. The reference range was not used to interpret this result as normal/abnormal. NRBC x10^3 (test code = 3849451019) See_Comment [Automated me ssage] The system which generated this result transmitted reference range: 10*3/?L. The reference range was not used to interpret this result as normal/abnormal. GRAN MAT (NEUT) % (test code = 770-8) 62.4 % IMM GRAN % (test code = 6344610347) 0.40 % LYMPH % (test code = 736-9) 28.4 % MONO % (test code = 5905-5) 7.3 % EOS % (test code = 713-8) 1.2 % BASO % (test code = 706-2) 0.3 % GRAN MAT x10^3(ANC) (test code = 5441460035) 4.85 10*3/uL 1.88-7.09 IMM GRAN x10^3 (test code = 2502550970) 0.03 10*3/uL 0.00-0.06 LYMPH x10^3 (test code = 731-0) 2.20 10*3/uL 1.32-3.29 MONO x10^3 (test code = 742-7) 0.57 10*3/uL 0.33-0.92 EOS x10^3 (test code = 711-2) 0.09 10*3/uL 0.03-0.39 BASO x10^3 (test code = 704-7) 0.01-0.07 [facility] [id number] 11:43:55 Name: Daina DOB: 1985 Sex: F - DIAG MAMM BILATERAL BLAYNE CAD DIGITAL- BREAST ULTRASOUND BILATERALBILATERAL DIGITAL DIAGNOSTIC MAMMOGRAM 3D/2D WITH CAD: 2CLINICAL: Discharge, left breast, Xthree weeks.Diffuse pain and swelling, left breast, Xthree weeks. Digital breast tomosynthesis was performed in addition to routine CC and MLO views. Current mammographic images were evaluated by [employer] Image[employer] CAD (computer-aided detection) software. Comparison ismade to exams dated 07/06/2019 mammogram, 06/23/2019 ultrasound, 06/23/2019 mammogram, and 06/14/2019 mammogram - [facility]. The tissue of both breasts is extremely dense, which lowers the sensitivity of mammography. On the right, no suspicious mass, architectural distortion, malignanttype calcification, or lymph node abnormality detected. On the left, periareolar skin thickening isnoted, correlating with the region of concern. Ultrasound correlation is to follow.IMPRESSION: INCOMPLETE: ADDITIONAL IMAGING EVALUATION NEEDEDFurther evaluation with ultrasound was performed and reported below.COMPLETE ULTRASOUND OF BOTH BREASTS AND AXILLA: 2Comparison is made to exams dated 07/06/2019 mammogram, 06/23/2019 ultrasound, 06/23/2019 mammogram, and 06/14/2019 mammogram - [facility]. Color flow and real-time ultrasound of both breasts four quadrants, retroareolar, and axilla regions were performed. Nascimento scale images of the real- time examination were reviewed. On the left, at [...] 11:43:55 Entry: - 01/28/2022 12:05:51Imaging Technologist: Radha Krause , [facility]-; Sabine Ventura , [facility]-letter sent: Short Term Follow Up Mammogram BI-RADS: 0 Incomplete: Additional Imaging Evaluation Needed Ultrasound BI-RADS: 3 Probably benignBREAST ULTRASOUND [id number] 11:43:55Name: Daina JAQUI: 1985 Sex: F AMENDMENT: 03/06/2022 Kalpana Ray M.D. RECOMMENDATIONS:1. Left breast: In view of patient's complaint of recurrent breast abscesses,would recommend skin punch biopsy at the 2 o'clock position, 2 cm from the nipple, at time of abscess drainage. Amended BI-RADS: 3 Probably benignDIAG MAMM BILATERAL BLAYNE CAD [id number] 11:43:55Name: Daina JAQUI: 1985 Sex: F - DIAG MAMM BILATERAL BLAYNE CAD DIGITAL- BREAST ULTRASOUND BILATERALBILATERAL DIGITAL DIAGNOSTIC MAMMOGRAM 3D/2D WITH CAD: 2CLINICAL: Discharge, left breast, Xthree weeks.Diffuse pain and swelling, left breast, Xthree weeks. Digital breast tomosynthesis was performed in addition to routine CC and MLO views. Current mammographic images were evaluated by [employer] Image[employer] CAD (computer-aided detection) software. Comparison ismade to exams dated 07/06/2019 mammogram, 06/23/2019 ultrasound, 06/23/2019 mammogram, and 06/14/2019 mammogram - [facility]. The tissue of both breasts is extremely dense, which lowers the sensitivity of mammography. On the right, no suspicious mass, architectural distortion, malignanttype calcification, or lymph node abnormality detected. On the left, periareolar skin thickening isnoted, correlating with the region of concern. Ultrasound correlation is to follow.IMPRESSION: INCOMPLETE: ADDITIONAL IMAGING EVALUATION NEEDEDFurther evaluation with ultrasound was performed and reported below.COMPLETE ULTRASOUND OF BOTH BREASTS AND AXILLA: 2Comparison is made to exams dated 07/06/2019 mammogram, 06/23/2019 ultrasound, 06/23/2019 mammogram, and 06/14/2019 mammogram - [facility]. Color flow and real-time ultrasound of both breasts four quadrants, retroareolar, and axilla regions were performed. Nascimento scale images of the real- time examination were reviewed. On the left, at [...] 11:43:55 Entry: - 01/28/2022 12:05:51Imaging Technologist: Radha Krause , [facility]-; Sabine Ventura , [facility]-letter sent: Short Term Follow Up Mammogram BI-RADS: 0 Incomplete: Additional Imaging Evaluation Needed Ultrasound BI-RADS: 3 Probably benignDIAG MAMM BILATERAL BLAYNE CAD DIGITAL 2022-01-28 11:43:55 Name: Daina : 1985 Sex: F AMENDMENT: 03/06/2022 Kalpana Ray M.D. RECOMMENDATIONS:1. Left breast: In view of patient's complaint of recurrent breast abscesses,would recommend skin punch biopsy at the 2 o'clock position, 2 cm from the nipple, at time of abscess drainage. Amended BI-RADS: 3 Probably benignANA REFLEX AUTOIMMUNE AB [id number] 12:48:05* Test Item Value Reference Range Interpretation Comme nts ANTI-NUCLEAR ANTIBODIES (test code = 3506) NEGATIVE NEGATIVE Methodology is I ndirect Immunofluorescent Assay (IFA) with a titering system using [id number] cells (Hep2 cells transfected with SS-A/Ro). SEDIMENTATION [id number] 09:32:29* Test Item Value Reference Range Interpretation Comme nts SEDIMENTATION RATE (test cod e = 1017) 2 MM/HOUR 0-20 C-REACTIVE [id number] 06:45:15* Test Item Value Reference Range Interpretation Comme [facility] C-REACTIVE PROTEIN (test cod e = 3513) <0.3 MG/DL <0.5 RHEUMATOID FACTOR, [id number] 06:45:15* Test Item Value Reference Range Interpretation Comme [facility] RHEUMATOID FACTOR, QUANT (te st code = 3502) <10 IU/ML <14 URIC [id number] 06:27:17* Test Item Value Reference Range Interpretation Comme [facility] URIC ACID (test code = 2233) 4.9 MG/DL 2.7-6.1 VITAMIN D, 25 [id number] 06:02:09* Test Item Value Reference Range Interpretation Comme [facility] VITAMIN D, 25 OH (test code = 4958) 28 NG/ML SEE BELOW L NOTE: 25-HYDR OXYVITAMIN D ASSAY INCLUDES 25-HYDROXYVITAMIN D2 AND D3. METHODOLOGY IS CHEMILUMINESCENT IMMUNOASSAY. INTERPRETIVE RANGES PEDIATRIC (<17 YEARS) . . . . . . . . . . . NG/ML 20-100ADULT: INSUFFICIENT . . . . . . . . . . . . . . NG/ML <20 SUBOPTIMAL . . . . . . . . . . . . . . . NG/ML 20-29 OPTIMAL . . . . . . . . . . . . . . . . . NG/ML 30-100 UNLESS OTHERWISE INDICATED, ALL TESTING PERFORMED [facility] [address] [place] [address] EXTENSION EDUCATOR: RAÚL FLOREZ M.D. CLIA NUMBER [id number] [facility] [place]. [id number] SURGICAL PATHOLOGY [id number] 16:54:23* Test Item Value Reference Range Interpretation Comme [facility] DIAGNOSIS: (test code = 8200) (NOTE) A) Conization (L EEP) - EctocervixAcute and chronic cervicitis with prior procedure site changes;no residual dysplasia identified (see Comment) B) Biopsy - EndocervixBenign endocervical mucosa COMMENTS: (test code = 8205) (NOTE) The patient has a history of high-grade squamous intraepitheliallesion (see [id number]). the prior case was reviewed and thediagnoses confirmed. The current case shows mixed inflammationwith reactive changes suggesting prior procedure sites. Multipleadditional levels from each block were evaluated with u62qfynuqeruijffmostad stains, but no residual dysplasia and nomalignancy are seen. It is possible that the lesions werecompletely removed with a prior biopsy procedure or haveregressed in the interim. MICROSCOPIC DESCRIPTION: (test code = 8210) (NOTE) A) The sections show transformation zone mucosa and cervicalstroma. There is good sampling of the transformation zone. There is acute and chronic inflammation and subepithelialfibrosis consistent with prior procedure site. There areadjacent reactive epithelial changes, but no diagnostic dysplasiaand no malignancy are seen. Deeper levels were reviewed fromeach block. These are histologically similar to the initialsections. In addition, P16 immunohistochemical stains wereperformed and evaluated with appropriately reacting controls onall blocks from part A. These stains show no increase in a30icvwwpgm. B) The sections show benign endocervical mucosa and stroma. Multiple additional deeper levels are also reviewed from theseblocks. No atypia or malignancy are seen. CLINICAL DATA: (test code = 8401) (NOTE) Not specified GROSS DESCRIPTION: (test code = 8220) (NOTE) A) Received i n formalin labeled with "CA and ectocervix" is a 1.8x 1.1 x 0.8 cm conical pink-carroll soft tissue fragment consistentwith LEEP specimen. There is a suture on one aspect designating"12:00" per the requisition. There is a 0.9 cm in diameter os. The ectocervix is pink-carroll, smooth and glistening with blue inkon the periphery of the specimen. Prior to sectioning, the deependocervical margin is inked blue and all remaining radialmargins are inked orange. The specimen is radially sectioned andentirely submitted as follows: CASSETTE CODE:A1 - 12-3:00 quadrant x 3A2 - 3-6:00 quadrant x 3A3 - 6-9:00 quadrant x 3A4 - 9-12:00 quadrant x 3 Additionally received in the same container are twoirregularly-shaped pink-carroll soft tissue fragments measuring 4.5 x1.2 x 0.6 cm and 1.5 x 0.4 x 0.3 cm. The soft tissue fragmentsare partially surfaced by pink-carroll, smooth, glisteningectocervix. The ectocervix has blue ink on one edge of each softtissue fragment designating perimeter of the specimen, per therequisition. Prior to sectioning, the perimeter of the specimenis inked blue. The specimen is sectioned and entirely submittedas follows: CASSETTE CODE:A5 - larger tissue fragment x 4A6 - smaller tissue fragment x 4 B) Received in formalin labeled with "CA and endocervix" is a 1.2x 1.0 x 0.4 cm conical portion of pink-carroll soft tissue with a 0.6cm in diameter os. Prior to sectioning, the endocervical marginis inked blue and all remaining radial margins are inked orange. The specimen is radially sectioned and entirely submitted asfollows: CASSETTE CODE:B1 - quadrant 1 x 2B2 - quadrant 2 x 2B3 - quadrant 3 x 2B4 - quadrant 4 x 2 PATHOLOGIST: (test code = 8250) (NOTE) Rosy Garnica. Specimens processed at [facility], [address] [place] [address], , CLIA: [id number] interpreted at [facility] [address], [place] [address], , CLIA: [id number] DISCLAIMER (test code = 50864) (NOTE) IHC antibodies a re interpreted in the presence of appropriatelyfunctioning controls unless otherwise noted. CPT: (test code = 8400) (NOTE) 18427, 21080, 88 342 UNLESS OTHERWISE INDICATED, ALL TESTING PERFORMED [facility], [facility]. [address] [place] [address] EXTENSION EDUCATOR: RAÚL FLOREZ M.D. CLIA NUMBER [id number] [facility] [place]. [id number] Notes Date/Time Note Provider Source 2022-12-10 08:55:32 3721-83-30A89:55:32F ormatting of this note might be different from the original.Noted. 54525-8Gqohubsir encounter FhayIB8785-17-19D36:55:41Telephone encounter NoteTXT1.2.840.635324.1.13.104.2.7 .2.940592|[id number] for patient wcyk93382-6UilsEQTZQGVBTE[id number] 52JUAHIUYABIXPODTCGOZNOQ3175-16-94 T08:55:411.2.840.226865.1.72.3.15| 1.2.840.290811.1.13.104.2.7.2.7278 [id number] [facility] 2022-12-10 08:29:52 9736-57-85X35:29:52F ormatting of this note might be different from the original.Called left voicemail to contact clinic .Financial screening , wwe and cbe scheduled for [id number] at 9 am. Appointment letter mailed. 35154-6Ldugwjwtg encounter DoluZP1744-95-08C54:31:10Telephone encounter NoteTXT1.2.840.326236.1.13.104.2.7 .2.629349|[id number] for patient [id number] M Garcia Clerk[id number] 81YXEHRKHAJZKVZJJCWZCHZS1113-55-73 T08:31:101.2.840.146127.1.72.3.15| 1.2.840.435557.1.13.104.2.7.2.7278 [id number] Daina Cosme [facility] 2022-12-09 10:30:44 3847-61-08R38:30:44F ormatting of this note might be different from the original.PSS called patient and left v/m for her to call us for scheduling. 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 17912-3Tnlnbecjv encounter PlmbHY3467-05-62T60:32:17Telephone encounter NoteTXT1.2.840.163255.1.13.104.2.7 .2.322026|[id number] for patient [id number] L Smith[id number] 60CXQWFGLINGUREQRHIKBZBH8312-16-88 T10:32:171.2.840.732212.1.72.3.15| 1.2.840.452536.1.13.104.2.7.2.7278 [id number] Isabel Durand [facility] 2022-12-09 09:23:11 2693-21-19K59:23:11F ormatting of this note might be different from the original.Daina Morales is a 37 year old femaleAttempted to call patient, to follow up on Breast imaging appointment, no answer. Left voicemail. Needs FS and CBE appointment 90145-2Jvzkqihqu encounter GwmwXR7096-49-79C51:31:32Telephone encounter NoteTXT1.2.840.016867.1.13.104.2.7 .2.617810|[id number] for patient [id number] M Navarro RN[address]vdG[id number] 12HDXGUUHTRGPDCEOQTEPAEN2076-22-21 T09:31:321.2.840.426017.1.72.3.15| 1.2.840.442576.1.13.104.2.7.2.7278 [id number] Keysha Guevara RN [facility]
[2023-04-09] MEDS ORDERED: IBUPROFEN 400 MG TAB ONE (13:56)
--- NOTE | 2023-04-09 14:22 | RAD REPORT ---
EXAM DESCRIPTION: RAD - Foot Left 3 View - 04/09/2023 2:08 pm CLINICAL HISTORY: PAIN COMPARISON: No comparisons FINDINGS: No fracture or dislocation.
--- NOTE | 2023-04-09 14:41 | EDPHYS ---
Physician Documentation [facility] Name: Daina Ibrahim Age: 37 yrs Sex: Female : 1985 Arrival Date: 04/09/2023 Time: 12:34 Bed 11 Private MD: ED Physician Stefan Fonseca HPI: 04/09 13:30 This 37 yrs old Female presents to ER via Ambulatory with complaints of Foot cp Injury. 13:30 The patient presents with an injury, pain, that is acute, tenderness. The complaints cp affect the dorsum of left foot. Context: injured foot 2 weeks jumping down from being carried on 's back. Associated signs and symptoms: Pertinent negatives calf tenderness, numbness, weakness. Treatment prior to arrival includes: no previous treatment. 13:30 Patient also requesting testing for flu, RSV and COVID as she c/o mild symptoms that cp started today and recent exposure to RSV. Historical: - Allergies: 13:02 ORANGES; cm10 - PSHx: 13:02 section; cm10 - Immunization history:: Adult Immunizations unknown. - Social history:: Smoking status: Patient reports the use of cigarette tobacco products, smokes one-half pack cigarettes per day. ROS: 13:33 MS/extremity: Positive for pain, tenderness, of the left foot, cp 13:33 Constitutional: Negative for body aches, chills, fever, cp 13:33 Neck: Negative for pain with movement, pain at rest, 13:33 Respiratory: Negative for cough, shortness of breath, wheezing, 13:33 Abdomen/GI: Negative for abdominal pain, nausea, vomiting, and diarrhea, 13:33 Back: Negative for pain at rest, pain with movement, 13:33 Neuro: Negative for numbness, visual changes, 13:33 All other systems are negative, Exam: 13:40 Constitutional: The patient appears in no acute distress, alert, awake, non-toxic, well cp developed, well nourished, overweight 13:40 Head/Face: Normocephalic, atraumatic. cp 13:40 Eyes: Periorbital structures: appear normal, Conjunctiva: normal, no exudate, no injection, Sclera: no appreciated abnormality, Lids and lashes: appear normal, bilaterally, 13:40 ENT: External ear(s): are unremarkable, Nose: is normal, Mouth: Lips: moist, Oral mucosa: pink and intact, moist, Posterior pharynx: Airway: no evidence of obstruction, patent, Tonsils: no enlargement, no erythema, no exudate, erythema, is not appreciated, exudate, is not appreciated, 13:40 Neck: ROM/movement: is normal, is supple, 13:40 Chest/axilla: Inspection: normal, 13:40 Cardiovascular: Rate: normal, 13:40 Respiratory: the patient does not display signs of respiratory distress, Respirations: normal, no use of accessory muscles, no retractions, labored breathing, is not present, Breath sounds: are clear throughout, no decreased breath sounds, no stridor, no wheezing, 13:40 Musculoskeletal/extremity: Extremities: grossly normal except: noted in the dorsum of left foot: pain, tenderness, There is no evidence of deformity, Perfusion: the extremity is normally perfused throughout, the left foot Sensation intact. Vital Signs: 13:01 BP 128 / 92; Pulse 79; Resp 18; Temp 97.3; Pulse Ox 100% ; Weight 88.9 kg; Height 5 ft. cm10 5 in. ; Pain 6/10; 14:15 BP 110 / 58; Pulse 85; Resp 17; Pulse Ox 100% ; jj7 14:52 BP 112 / 60; Pulse 64; Resp 17; Pulse Ox 98% ; jj7 13:01 Body Mass Index 32.62 (88.90 kg, 165.1 cm) cm10 13:01 Pain Scale: Adult cm10 MDM: 13:11 Patient medically screened. cp 14:00 Differential diagnosis: dislocation, closed fracture, contusion, sprain. cp 14:40 Data reviewed: vital signs, nurses notes, lab test result(s), radiologic studies, plain cp films. 14:40 Counseling: I had a detailed discussion with the patient and/or guardian regarding the cp historical points, exam findings, and any diagnostic results supporting the discharge/admit diagnosis, lab results, radiology results, the need for outpatient follow up, a orthopedic surgeon, to return to the emergency department if symptoms worsen or persist or if there are any questions or concerns that arise at home. Response to treatment: the patient's symptoms have mildly improved after treatment, and as a result, I will discharge patient. 04/09 13:23 Order name: RSV; Complete Time: 14:30 cp 12/08 14:31 Interpretation: Reviewed. cp 04/09 13:23 Order name: COVID-19 SARS RT PCR; Complete Time: 14:30 cp 04/09 14:31 Interpretation: Reviewed. cp 04/09 13:23 Order name: Influenza Screen (a \T\ B); Complete Time: 14:30 cp 04/09 14:31 Interpretation: Reviewed. cp 04/09 13:23 Order name: XRAY Foot LEFT 3 View; Complete Time: 14:30 cp 04/09 14:35 Order name: Walking boot; Complete Time: 14:43 cp Administered Medications: 13:47 Drug: Ibuprofen PO 800 mg PO once Route: PO; jj7 14:43 Follow up: Response: Marked relief of symptoms jj7 Disposition Summary: 04/09/23 14:40 Discharge Ordered Notes: Location: Home cp Problem: new cp Symptoms: have improved cp Condition: Stable cp Diagnosis - Pain in right foot cp - Contact with and (suspected) exposure to other viral communicable diseases cp Followup: cp - With: Georges Gilbert MD - When: 1 week - Reason: right foot pain Discharge Instructions: - Discharge Summary Sheet cp Forms: - Medication Reconciliation Form cp - Thank You Letter cp - Antibiotic Education cp - Prescription Opioid Use cp - Patient Portal Instructions cp - Leadership Thank You Letter cp Prescriptions: - Ibuprofen 800 mg Oral Tablet - take 1 tablet ORAL route every 8 hours As needed take with food; 30 tablet; cp Refills: 0, Product Selection Permitted Addendum: 04/11/2023 04:30 Co-signature as Attending Physician, Stefan Fonseca MD I reviewed the patient's care r t provided by the Advanced Practice Provider and agree with the diagnosis and treatment plan. Signatures: Dispatcher [employer] EDRI eBto Robles PA PA cp Afsaneh Vyas RN RN jj7 Stefan Fonseca MD MD rt Alma Delgado RN RN cm10 Corrections: (The following items were deleted from the chart) 04/10 03:50 03:49 MS/extremity: Positive for pain, tenderness, of the left foot, cp cp
--- NOTE | 2023-04-09 14:41 | ER ---
Nurse's Notes [facility] Name: Daina Ibrahim Age: 37 yrs Sex: Female : 1985 Arrival Date: 04/09/2023 Time: 12:34 Bed 11 Private MD: Diagnosis: Pain in right foot;Contact with and (suspected) exposure to other viral communicable diseases Presentation: 04/09 13:01 Chief complaint: Patient states: left foot pain X2 weeks. Pt states that she injured cm10 her foot 2 weeks ago and the pain is getting worse. Coronavirus screen: Vaccine status: Patient reports being unvaccinated. Client denies travel out of the [place] in the last 14 days. Ebola Screen: Patient denies travel to an Ebola-affected area in the 21 days before illness onset. No symptoms or risks identified at this time. Initial Sepsis Screen: Does the patient meet any 2 criteria? No. Patient's initial sepsis screen is negative. Does the patient have a suspected source of infection? No. Patient's initial sepsis screen is negative. Risk Assessment: Do you want to hurt yourself or someone else? Patient reports no desire to harm self or others. Onset of symptoms was April 09, 2023. 13:01 Method Of Arrival: Ambulatory cm10 13:01 Acuity: KARO 4 cm10 Historical: - Allergies: 13:02 ORANGES; cm10 - PSHx: 13:02 section; cm10 - Immunization history:: Adult Immunizations unknown. - Social history:: Smoking status: Patient reports the use of cigarette tobacco products, smokes one-half pack cigarettes per day. Screenin:15 [facility] ED Fall Risk Assessment (Adult) History of falling in the last 3 months, jj7 including since admission No falls in past 3 months (0 pts) Confusion or Disorientation No (0 pts) Intoxicated or Sedated No (0 pts) Impaired Gait No (0 pts) Mobility Assist Device Used No (0 pt) Altered Elimination No (0 pt) Score/Fall Risk Level 0 - 2 = Low Risk Oriented to surroundings, Maintained a safe environment. Abuse screen: Denies threats or abuse. Nutritional screening: No deficits noted. Tuberculosis screening: No symptoms or risk factors identified. Assessment: 13:15 General: Appears in no apparent distress. comfortable, Behavior is calm, cooperative, jj7 appropriate for age. Pain: Complains of pain in dorsum of left foot. Musculoskeletal: Swelling absent Tenderness present in dorsum of left foot. Vital Signs: 13:01 BP 128 / 92; Pulse 79; Resp 18; Temp 97.3; Pulse Ox 100% ; Weight 88.9 kg; Height 5 ft. cm10 5 in. ; Pain 6/10; 14:15 BP 110 / 58; Pulse 85; Resp 17; Pulse Ox 100% ; jj7 14:52 BP 112 / 60; Pulse 64; Resp 17; Pulse Ox 98% ; jj7 13:01 Body Mass Index 32.62 (88.90 kg, 165.1 cm) cm10 13:01 Pain Scale: Adult cm10 ED Course: 12:57 Patient arrived in ED. mg5 13:02 Triage completed. cm10 13:03 Arm band placed on Patient placed in an exam room, on a stretcher. cm10 13:07 Afsaneh Vyas, RAMIRO is Primary Nurse. jj7 13:10 Beto Robles PA is PHCP. cp 13:11 Stefan Fonseca MD is Attending Physician. cp 13:15 Bed in low position. Call light in reach. Adult w/ patient. Warm blanket given. jj7 13:15 No provider procedures requiring assistance completed. jj7 13:47 Influenza Screen (a \T\ B) Sent. jj7 13:48 COVID-19 SARS RT PCR Sent. jj7 13:48 RSV Sent. jj7 14:10 XRAY Foot LEFT 3 View In Process Unspecified. EDMS 14:38 Georges Gilbert MD is Referral Physician. cp 14:44 Patient did not have IV access during this emergency room visit. jj7 Administered Medications: 13:47 Drug: Ibuprofen PO 800 mg PO once Route: PO; jj7 14:43 Follow up: Response: Marked relief of symptoms jj7 Medication: 13:15 VIS not applicable for this client. jj7 Outcome: 14:40 Discharge ordered by . cp 14:52 Discharged to home ambulatory, jj7 14:52 Condition: improved 14:52 Discharge instructions given to patient, Instructed on discharge instructions, medication usage, Demonstrated understanding of instructions, medications, Prescriptions given X 1, 14:54 Patient left the ED. jj7 Signatures: Dispatcher [employer] EDPA Beto Robles PA PA cp Asael, Juwairiyah, RN RN jj7 Alma Delgado RN RN cm10 Reena Gray 5
[2023-04-09 14:59] VITALS: TEMP 97.3
[2023-04-09 15:02] VITALS: BP 112/60; O2SAT 98
== END 2023-04-09 14:54 | disposition home or self-care (01) ==
LOC: ER 12:34
DX: M79.672 Pain in left foot (principal); Z20.828 Contact with and (suspected) exposure to other viral communicable diseases; Z11.52 Encounter for screening for COVID-19; F17.210 Nicotine dependence, cigarettes, uncomplicated; Z91.018 Allergy to other foods
CPT/HCPCS: 87635; 87804; 87807; 99284

== ENCOUNTER 2023-08-16 15:02 | Emergency (ER) | payer SELFPAY ==
--- OUTSIDE RECORDS SUMMARY | 2023-08-16 15:04 | XMS REPORT | Continuity of Care Document ---
Author Name Unknown Address [address] [facility] [address] [place] [address] [facility] thconnect Address [address] [facility]. [address] [place] [address] Care Team Providers Care Flaking Roll Operator Name Role Phone Vanesa Live Primary Care Physician Un available CASISA MELISSA Attending Clinician Unavail able MITRA MCCARTHY Attending Clinician UnavailMitra Ribeiro CNM Attending Clinician [phone] Belén Cassia TINEO Attending Clinician + Tyson Hernandez MD Attending Clinician [phone] TYSON HERNANDEZ Attending Clinician Unavailable Doctor Unassigned, [place] Attending Clinician U JUNIE Argueta Attending Clinician UnavailJunie Hughes MD Attending Clinician [phone] Vanesa Live Attending Clinician + [phone] VANESA TIDWELL Attending Clinician Unavailab le Payers Payer Name Policy Type Policy Number Effective Date Expirati on Date Source [facility] [id number] 2022 00:00:00 Problems Condition Name Condition Details Condition Category Status Onset Date Resolution Date Last Treatment Date Treating Clinician Comments Source Screening examinatio n for STD (sexually transmitte d disease) Screening examinatio n for STD (sexually transmitte d disease) Disease Active 2021-05 0-12 00:00: 00 [facility] Breast discharge Breast discharge Disease Active 2021-05 00:00: 00 [facility] Breast abscess Breast abscess Disease Active 2021-05 00:00: 00 [facility] BMI 29.0-29.9, adult BMI 29.0-29.9, adult Disease Active 2021-05- 00:00: 00 [facility] Overweight (BMI 25.0-29.9) Overweight (BMI 25.0-29.9) Disease Active 2021-05 00:00: 00 [facility] Allergies, Adverse Reactions, Alerts Allergy Name Allergy Type Status Severity Reaction(s) Onset Date Inactive Date Treating Clinician Comments Source [facility] Active Rash 08-31 00:00: 00 [facility] [place] Prop[place] ty to adverse reaction s Active Rash 08-31 00:00: 00 [facility] NO KNOWN ALLERGIE S Drug Class Active [facility] Social History Social Habit Start Date Stop Date Quantity Comments Source Gender identity [facility] Sexual orientation [facility] Exposure to SARS-CoV-2 (event) 2022-08-21 00:00:00 2022-08-31 14:28:00 Not sure [facility] History of Social function 2022-02-11 00:00:00 2022-02-11 00:00:00 [facility] Sex Assigned At 1985 00:00:00 1985 00:00:00 [facility] Smoking Status Start Date Stop Date Source Tobacco smoking consumption unknown [facility] Medications Ordered Medication Name Filled Medication Name Start Date Stop Date Current Medication? Ordering Clinician Indication Dosage Frequency Signature (SIG) Comments Components Source pantoprazol e 40 mg EC tablet 08-31 00:00: 00 10-15 04:59 :00 No [id number] Take 1 tablet by mouth daily for 14 days, THEN 1 tablet daily for 30 days. [facility] famotidine (PEPCID) 20 mg tablet 08-31 00:00: 00 09-08 04:59 :00 No [id number] 20mg Take 1 tablet by mouth in the morning and 1 tablet in the evening. Do all this for 7 days. [facility] No known medications 2021-05 012 09:30: 28 No No known medication s [facility] Vital Signs Vital Name Observation Time Observation Value Comments Mauricio yañez Systolic blood pressure 2022-08-31 19:37:00 117 mm[Hg] [facility] Diastolic blood pressure 2022-08-31 19:37:00 81 mm[Hg] [facility] Heart rate 2022-08-31 19:37:00 65 /min [facility] Respiratory rate 2022-08-31 19:37:00 18 /min [facility] Oxygen saturation in Arterial blood by Pulse oximetry 2022-08-31 19:37:00 99 /min [facility] Body temperature 2022-08-31 17:47:00 37.11 Thais [facility] Body weight 2022-08-31 17:47:[address] [facility] BMI 2022-08-31 17:47:00 29.12 kg/m2 [facility] Systolic blood pressure 2022-02-11 14:09:00 108 mm[Hg] [facility] Diastolic blood pressure 2022-02-11 14:09:00 69 mm[Hg] [facility] Heart rate 2022-02-11 14:09:00 65 /min [facility] Body temperature 2022-02-11 14:09:00 36.61 Thais [facility] Respiratory rate 2022-02-11 14:09:00 18 /min [facility] Body height 2022-02-11 14:09:[address] [facility] Body weight 2022-02-11 14:09:[address] [facility] BMI 2022-02-11 14:09:00 29.30 kg/m2 [facility] Procedures Procedure Date / Time Performed Performing Clinician Source LIPASE 2022-08-31 18:19:[address] [facility] COMP. METABOLIC PANEL (75602) 2022-08-31 18:19:00 Tyson Hernandez [facility] CBC WITH DIFF 2022-08-31 18:19:00 [facility]REF[facility] FOR DIAGNOS[facility] AND TREATMENT 2022-08-31 17:31:28 Doctor Unassigned, [place] [facility] EXTERNAL PROVIDER RECORDS 2022-04-03 06:01:00 Doctor Unassigned, [place] [facility] EXTERNAL PROVIDER RECORDS 2022-02-25 05:01:00 Doctor Unassigned, [place] [facility] BCCS-RELATED DOCUMENTATION 2022-02-20 05:01:00 Doctor Unassigned, [place] [facility] BI DIAGNOSTIC TOMOSYNTHESIS BILATERAL 2022-02-13 14:43:47 Junie Chambers [facility] NOTICE OF PRIVACY PRACTICES 2022-02-11 13:51:06 Doctor Unassigned, [place] [facility] Encounters Start Date/Time End Date/Time Encounter Type Admission Type Attending [facility] Care Department Encounter ID Source 2023-02-22 09:00:00 2023-02-22 09:00:00 Outpatient R CASSIA MELISSA [facility] [id number] [facility] 2022-12-09 00:00:00 2022-12-09 00:00:00 Telephone Mitra Mccarthy [facility] REGISTER REPAIRER [facility] MATERNAL & CHILD [facility] 1..840.114 350.1.13.10 4.2.7.2.686 [id number] [facility] 2022-11-11 00:00:00 2022-11-11 00:00:00 Telephone Cassia Melissa [facility] REGISTER REPAIRER [facility] & CHILD [facility] ..840.114 350.1.13.10 4.2.7.2.686 [id number] [facility] 2022-11-10 13:18:33 2022-11-10 13:18:33 Outpatient [facility] [id number] Hunter Donis 2022-08-31 12:48:00 2022-08-31 14:40:00 Emergency Tyson Hernandez E [facility] 1.2.840.114 350.1.13.10 4.2.7.2.686 [id number] [facility] 2022-08-31 12:48:00 2022-08-31 14:40:00 Emergency X TYSON HERNANDEZ [facility] [id number] [facility] 2022-04-07 11:13:39 2022-04-07 11:13:39 Outpatient [facility] [id number] Hunter Donis 2022-04-03 00:00:00 2022-04-03 00:00:00 Orders Only Doctor Unassigned, [place] [facility] 1.2.840.114 350.1.13.10 4.2.7.2.686 [id number] [facility] 2022-03-23 00:00:00 2022-03-23 00:00:00 Telephone Cassia Melissa [facility] REGISTER REPAIRER [facility] & [facility]ILD [facility] 1.2.840.114 350.1.13.10 4.2.7.2.686 [id number] [facility] 2022-02-25 00:00:00 2022-02-25 00:00:00 Orders Only Doctor Unassigned, [place] [facility] 1.2840.114 350.1.13.10 4.2.7.2.686 [id number] [facility] 2022-02-23 00:00:00 2022-02-23 00:00:00 Outpatient JUNIE SINCLAIR [facility] [id number] [facility] 2022-02-20 15:00:00 2022-02-20 15:00:00 Outpatient R [facility] [id number] [facility] 2022-02-20 00:00:00 2022-02-20 00:00:00 Orders Only Doctor Unassigned, [place] [facility] 1.2840.114 350.1.13.10 4.2.7.2.686 [id number] [facility] 2022-02-19 00:00:00 2022-02-19 00:00:00 Telephone Cassia Melissa [facility] REGISTER REPAIRER [facility] & CHILD [facility] 1.2.840.114 350.1.13.10 4.2.7.2.686 [id number] [facility] 2022-02-16 00:00:00 2022-02-16 00:00:00 Telephone Junie Chambers [facility] 1.2840.114 350.1.13.10 4.2.7.2.686 [id number] [facility] 2022-02-13 09:43:47 2022-02-13 23:59:00 Outpatient R JUNIE CHAMBERS [facility] [id number] [facility] 2022-02-13 09:43:47 2022-02-13 23:59:00 Hospital Encounter Junie Chambers [facility] 1.2840.114 350.1.13.10 4.2.7.2.686 [id number] [facility] 2022-02-12 00:00:00 2022-02-12 00:00:00 Telephone Junie Chambers [facility] 1.2.840.114 350.1.13.10 4.2.7.2.686 [id number] [facility] 2022-02-11 08:45:00 2022-02-11 11:03:34 Office Visit Vanesa Tidwell [facility] REGISTER REPAIRER [facility] CHILD [facility] 1.2840.114 350.1.13.10 4.2.7.2.686 [id number] [facility] 2022-02-11 08:45:00 2022-02-11 11:03:34 Outpatient R VANESA TIDWELL [facility] [id number] [facility] 2022-02-11 00:00:00 2022-02-11 00:00:00 Orders Only Doctor Unassigned, [place] [facility] 1.840.114 350.1.13.10 4.2.7.2.686 [id number] [facility] 2022-02-11 00:00:00 2022-02-11 00:00:00 Letter (Out) Vanesa Tidwell [facility] REGISTER REPAIRER [facility] 1..840.114 350.1.13.10 4.2.7.2.686 [id number] [facility] Results Test Description Test Time Test Comments Results Result Co mments Source [facility] Test Item Value Reference Range Interpretation Comme nts LIPASE (test code = 8872463136) 75 U/L 0-220 Lab Interpretation (test cod e = 80524-4) [facility] [id number] 18:34:05* Test Item Value Reference Range Interpretation Comme nts WBC (test code = 6690-2) 7.76 See_Comment [Automated messa ge] The system which [...] 34.2 g/dL 31.6-35.1 RDW-SD (test code = 85262-6) 43.8 fL 39.0-49.9 RDW-CV (test code = 788-0) 12.8 % 12.0-15.5 PLT (test code = 777-3) 341 See_Comment [Automated messa ge] The system which generated this result transmitted reference range: 166 - 358 10*3/?L. The reference range was not used to interpret this result as normal/abnormal. MPV (test code = 08207-3) 10.0 fL 9.5-12.9 NRBC/100 WBC (test code = 0980411235) 0.0 See_Comment [Automated me ssage] The system which generated this result transmitted reference range: 0.0 - 10.0 /100 WBCs. The reference range was not used to interpret this result as normal/abnormal. NRBC x10^3 (test code = 5935243441) See_Comment [Automated me ssage] The system which generated this result transmitted reference range: 10*3/?L. The reference range was not used to interpret this result as normal/abnormal. GRAN MAT (NEUT) % (test code = 770-8) 62.4 % IMM GRAN % (test code = 7371117480) 0.40 % LYMPH % (test code = 736-9) 28.4 % MONO % (test code = 5905-5) 7.3 % EOS % (test code = 713-8) 1.2 % BASO % (test code = 706-2) 0.3 % GRAN MAT x10^3(ANC) (test code = 7222317078) 4.85 10*3/uL 1.88-7.09 IMM GRAN x10^3 (test code = 1617108139) 0.03 10*3/uL 0.00-0.06 LYMPH x10^3 (test code = 731-0) 2.20 10*3/uL 1.32-3.29 MONO x10^3 (test code = 742-7) 0.57 10*3/uL 0.33-0.92 EOS x10^3 (test code = 711-2) 0.09 10*3/uL 0.03-0.39 BASO x10^3 (test code = 704-7) 0.01-0.07 [facility] [id number] 11:43:55 Name: Daina: 1985 Sex: F - DIAG MAMM BILATERAL BLAYNE CAD DIGITAL- BREAST ULTRASOUND BILATERALBILATERAL DIGITAL DIAGNOSTIC MAMMOGRAM 3D/2D WITH CAD: 2CLINICAL: Discharge, left breast, Xthree weeks.Diffuse pain and swelling, left breast, Xthree weeks. Digital breast tomosynthesis was performed in addition to routine CC and MLO views. Current mammographic images were evaluated by [employer] CAD (computer-aided detection) software. Comparison ismade to exams dated 07/06/2019 mammogram, 06/23/2019 ultrasound, 06/23/2019 mammogram, and [facility]. The tissue of both breasts [...] ultrasound, 06/23/2019 mammogram, and 06/14/2019 [facility]. Color flow and real-time ultrasound [...] - 01/28/2022 12:05:51Imaging Technologist: Radha SOTELO, [facility]-; Sabine SOTELO, [facility]-letter sent: Short Term Follow Up Mammogram BI-RADS: 0 Incomplete: Additional Imaging Evaluation Needed Ultrasound BI-RADS: 3 Probably benignBREAST ULTRASOUND [id number] 11:43:55Name: Daina JAQUI: 1985 Sex: F AMENDMENT: 03/06/2022 Kalpana Ray M.D. RECOMMENDATIONS:1. Left breast: In view of patient's complaint of recurrent breast abscesses,would recommend skin punch biopsy at the 2 o'clock position, 2 cm from the nipple, at time of abscess drainage. Amended BI-RADS: 3 Probably benignDIAG MAMM BILATERAL BLAYNE CAD [id number] 11:43:55Name: Daina DOB: 1985 Sex: F - DIAG MAMM BILATERAL BLAYNE CAD DIGITAL- BREAST ULTRASOUND BILATERALBILATERAL DIGITAL DIAGNOSTIC MAMMOGRAM 3D/2D WITH CAD: 2CLINICAL: Discharge, left breast, Xthree weeks.Diffuse pain and swelling, left breast, Xthree weeks. Digital breast tomosynthesis was performed in addition to routine CC and MLO views. Current mammographic images were evaluated by [employer] CAD (computer-aided detection) software. Comparison ismade to exams dated 07/06/2019 mammogram, 06/23/2019 ultrasound, 06/23/2019 mammogram, and 06/14/2019 [facility]. The tissue of both breasts [...] ultrasound, 06/23/2019 mammogram, and 06/14/2019 [facility]. Color flow and real-time ultrasound [...] management.Follow-up with three-month ultrasound.Kalpana gama/:01/28/2022 11:43:55 Entry: sj - 01/28/2022 12:05:51Imaging Technologist: Radha SOTELO, [facility]-; Sabine SOTELO, [facility]-letter sent: Short Term Follow Up Mammogram BI-RADS: 0 Incomplete: Additional Imaging Evaluation Needed Ultrasound BI-RADS: 3 Probably benignDIAG MAMM BILATERAL BLAYNE CAD DIGITAL 2022-01-28 11:43:55 Name: Daina: 1985 Sex: F AMENDMENT: 03/06/2022 Kalpana Ray M.D. RECOMMENDATIONS:1. Left breast: In view of patient's complaint of recurrent breast abscesses,would recommend skin punch biopsy at the 2 o'clock position, 2 cm from the nipple, at time of abscess drainage. Amended BI-RADS: 3 Probably benignANA REFLEX AUTOIMMUNE AB [id number] 12:48:05* Test Item Value Reference Range Interpretation Comme [facility] ANTI-NUCLEAR ANTIBODIES (test code = 3506) NEGATIVE NEGATIVE Methodology is I ndirect Immunofluorescent Assay (IFA) with a titering system using [id number] cells (Hep2 cells transfected with SS-A/Ro). SEDIMENTATION [id number] 09:32:29* Test Item Value Reference Range Interpretation Comme [facility] SEDIMENTATION RATE (test cod e = 1017) 2 MM/HOUR 0-20 C-REACTIVE [id number] 06:45:15* Test Item Value Reference Range Interpretation Comme [facility] C-REACTIVE PROTEIN (test cod e = 3513) <0.3 MG/DL <0.5 RHEUMATOID FACTOR, [id number] 06:45:15* Test Item Value Reference Range Interpretation Comme [facility] RHEUMATOID FACTOR, QUANT (te st code = 3502) <10 IU/ML <14 URIC [id number] 06:27:17* Test Item Value Reference Range Interpretation Comme [facility] URIC ACID (test code = 2233) 4.9 MG/DL 2.7-6.1 VITAMIN D, 25 [id number] 06:02:09* Test Item Value Reference Range Interpretation Comme [facility] VITAMIN D, 25 OH (test code = [...] 30-100 UNLESS OTHERWISE INDICATED, ALL TESTING PERFORMED [facility] [employer] [address] [place] [id number] DIRECTOR OF ASSESSING: RAÚL FLOREZ M.D. IA NUMBER [id number] [facility] [place]. [id number] SURGICAL PATHOLOGY [id number] 16:54:23* Test Item Value Reference Range Interpretation Comme nts DIAGNOSIS: (test code = 8200) (NOTE) A) Conization (L EEP) - EctocervixAcute and chronic cervicitis with prior procedure site changes;no residual dysplasia identified (see Comment) B) Biopsy - EndocervixBenign endocervical mucosa COMMENTS: (test code = 8205) (NOTE) The patient has a history of high-grade squamous intraepitheliallesion (see [id number]). the prior case was reviewed and thediagnoses confirmed. The current case shows mixed inflammationwith reactive changes suggesting prior procedure sites. Multipleadditional levels from each block were evaluated with f11wfmodngvmjxrlmfzrek stains, but no residual dysplasia and nomalignancy [...] A. These stains show no increase in w57tbtleurz. B) The sections show benign endocervical mucosa [...] 8250) (NOTE) Rosy Garnica. Specimens processed at [facility], [address] [place] [address], , CLIA: [id number] interpreted at [facility], [address] [place] [address],Pathology Department [place], [facility] [place] [address], , CLIA: [id number] DISCLAIMER (test code = 54064) (NOTE) IHC antibodies a re interpreted in the presence of appropriatelyfunctioning controls unless otherwise noted. CPT: (test code = 8400) (NOTE) 22151, 29392, 88 342 UNLESS OTHERWISE INDICATED, ALL TESTING PERFORMED [facility] [employer] [employer] [address] [place] [address] DIRECTOR OF ASSESSING: RAÚL FLOREZ M.D. CLIA NUMBER [id number] [facility] [place]. [id number] Notes Date/Time Note Provider Source 2022-12-10 08:55:32 E81uTyVl3Y20QotCnDyr jQO1KkSv+SX1/S cRrMOWaA4IIl1yZ/SxqiybjPZqni274684 -08-10T08:55:32 Noted. 68435-5Bckyvekbb encounter GgahXF9347-31-55G05:55:41Telephone encounter NoteTXT1.2.840.892692.1.13.104.2.7 .2.102976|[id number] for patient mtmn88275-3CpfoDHYKKGQEZD[id number] 71PKSJUWUKRSOVNHOLANWZUS7731-03-70 T08:55:411.2.840.143882.1.72.3.15| 1.2.840.443304.1.13.104.2.7.2.7278 [id number] [facility] 2022-12-10 08:29:52 Hpo1/eyinECBXiji9+CM TUBLajfN2zNVwu RVxaRVrhEcaMW2NSmrMTdvfKZMVI5w1397 -08-10T08:29:52 Called left voicemail to contact clinic .Financial screening , wwe and cbe scheduled for [id number] at 9 am. Appointment letter mailed. 66972-4Gvjmobqmy encounter ApszTS0573-07-88M38:31:10Telephone encounter NoteTXT1.2.840.220611.1.13.104.2.7 .2.951424|[id number] for patient iymj89097-1FfhtLX88527146Wfoaqjcvb M Garcia Cle[address] [id number] 65NXRWQGUOSHGZUGJMUWXFNY3616-33-84 T08:31:101.2.840.087597.1.72.3.15| 1.2.840.727965.1.13.104.2.7.2.7278 [id number] Daina Archuleta [facility] 2022-12-09 10:30:44 W4RLP1hvzqpX8BCze3zT foTNZ1Nesqkn5I S8wSYgUI5T2NKiYtvNp4h8I0W8hAFs3756 -08-09T10:30:44 PSS called patient and left v/m for her to call us for scheduling. Per conversation with nurse life sciences manager she needs to be scheduled for F/S appt and also her WWE in January. 87672-8Vcxchpfby encounter LenwTZ0301-95-64Q40:32:17Telephone encounter NoteTXT1.2.840.685472.1.13.104.2.7 .2.316248|[id number] for patient gpak85004-2DmegUF786306055Eevuu L Smith[id number] 30GSEAGXVTFQWEQSAWTFLQNG3204-60-42 T10:32:171.2.840.314347.1.72.3.15| 1.2.840.373823.1.13.104.2.7.2.7278 [id number] Isabel Durand [facility] 2022-12-09 09:23:11 yHRCkQQPU1GEa5w6pELo zX7byb4NeupDy9 AE7b3vqHEfJu1UU3ufdSi3kyh9avuK7029 -08-09T09:23:11 Daina Morales is a 37 year old femaleAttempted to call patient, to follow up on Breast imaging appointment, no answer. Left voicemail. Needs FS and CBE appointment 63975-8Ikqmsoouk encounter XctnOF8992-75-30E14:31:32Telephone encounter NoteTXT1.2.840.182551.1.13.104.2.7 .2.208732|[id number] for patient ucuf26866-3OewtZQ343667388Bul M Navarro RN[address] ItdyIwhkbfnnvVxyobkqnaXNQN40577661 14ZVJXPLOWAPIIRYRFVLRAZO2494-22-42 T09:31:321.2.840.666583.1.72.3.15| 1.2.840.061567.1.13.104.2.7.2.7278 [id number] Keysha Guevara RN [facility]
[2023-08-16] MEDS ORDERED: KETOROLAC 30 MG/ML INJ ONE (16:26)
--- NOTE | 2023-08-16 16:27 | RAD REPORT ---
EXAM DESCRIPTION: RADOhiohealtht Single View08/16/2023 3:30 pm CLINICAL HISTORY: CHEST PAIN COMPARISON: Chest Single View dated 02/19/2020 TECHNIQUE: Portable AP view of the chest. FINDINGS: The lungs are clear. No pneumothorax or effusion. The cardiomediastinal contours are unre markable. IMPRESSION: No acute cardiopulmonary process.
--- NOTE | 2023-08-16 16:31 | RAD REPORT ---
EXAM DESCRIPTION: CT - Head Brain Wo Cont - 08/16/2023 3:32 pm CLINICAL HISTORY: HEADACHE COMPARISON: No comparisons TECHNIQUE: Noncontrast head CT images were obtained without IV contrast. Multiplanar reformats were generated and reviewed. All CT scans are performed using dose optimization technique as appropriate and may include automated exposure control or mA/KV adjustment according to patient size. FINDINGS: No intracranial hemorrhage, mass, or edema. Midline structures are unremarkable. Normal ventricular caliber for age. Nascimento-white matter differentiation is preserved, without evidence of acute infarct. No abnormal extra- axial fluid collections. Mastoid air cells and visualized portions of the paranasal sinuses are clear. No acute bony findings. IMPRESSION: No evidence of an acute intracranial process.
[2023-08-16 17:20] LABS: Absolute Basophils 0.1 K/uL (0-0.5); Absolute Eosinophils 0.2 K/uL (0-0.5); Absolute Lymphocytes (CBC) 2.5 K/uL (0.7-4.9); Absolute Monocytes 0.6 K/uL (0.1-1.3); Absolute Neutrophil 5.3 K/uL (1.8-8.0); Basophils % 1.2 % (0-1.3); Eosinophils % 1.9 % (0-4.4); Hematocrit 37.4 % (36.0-45.0); Hemoglobin 12.9 g/dL (12.0-15.0); Lymphocytes % 29.2 % (15.3-44.8); MCH 32.3 pg (27.0-35.0); MCHC 34.4 g/dL (32.0-36.0); MCV 93.9 fL (80-100); MPV 8.2 fL (7.6-11.3); Monocytes % 6.4 % (3.3-12.3); Neutrophils % 61.3 % (41.7-73.7); Nucleated Red Blood Cells % 0.2 % (0-0); Platelets 316 thou/uL (152-406); RBC Red Blood Cell Count 3.99 M/uL (3.86-4.86); Red Cell Distribution Width 13.8 % (12.1-15.2)
[2023-08-16 17:37] LABS: BUN Blood Urea Nitrogen 16 mg/dL (7-18); Bicarbonate 26 mEq/L (21-32); Glomerular Filtration Rate 77 ml/min (=/>90); Glucose Level 101 mg/dL (74-106); Sodium Level 140 mEq/L (136-145)
[2023-08-16 17:43] LABS: Troponin High Sensitivity < 3.0 pg/mL (<58.9)
--- NOTE | 2023-08-16 18:07 | EDPHYS ---
Physician Documentation [facility] Name: Daina Ibrahim Age: 38 yrs Sex: Female : 1985 Arrival Date: 08/16/2023 Time: 15:02 Bed 14 Private MD: ED Physician Denny Barekr HPI: 08/15 15:18 This 38 yrs old Female presents to ER via Ambulatory with complaints of Chest ec2 Pain, Blurred Vision, Body aches. 15:18 Patient arrives today for evaluation of chest pain as well as headache and blurred ec2 vision. Patient reports that she has been experiencing symptoms for 1 day. Patient reports no specific alleviating or exacerbating factors. Patient reports no vomiting or diarrhea. Patient reports no cough or cold symptoms, denies urinary complaints. Patient reports that she is on her menstrual cycle at this time. Patient reports history of migraines, denies any medications that she is taken for symptoms today.. 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 - Infectious Disease History:: Denies. - Social history:: Smoking status: Patient reports the use of cigarette tobacco products, smokes one-half pack cigarettes per day. ROS: 15:18 Constitutional: as per hpi ec2 Exam: 15:18 Constitutional: GEN: NAD Head: atraumatic Eyes: EOMI Ears: External ears are ec2 normal. CV: regular rate LUNGS: no respiratory distress ABD: non-distended SKIN: no evidence of rashes MSK: no evidence of trauma NEURO: moves all extremities equally, cranial nerves II through XII intact, strength intact in upper extremities. Vital Signs: 15:11 BP 130 / 83; Pulse 87; Resp 16; Temp 98.9; Pulse Ox 99% ; Weight 88.45 kg; Height 5 ft. nj1 5 in. ; Pain 8/10; 17:23 BP 124 / 77; Pulse 75; Resp 22; Pulse Ox 98% on R/A; tl4 18:00 BP 124 / 77; Pulse 81; Resp 16; Pulse Ox 99% on R/A; tl4 18:42 BP 116 / 79; Pulse 79; Resp 17; Temp 97.5(O); Pulse Ox 100% on R/A; Pain 5/10; tl4 15:11 Body Mass Index 32.45 (88.45 kg, 165.1 cm) nj1 15:11 Pain Scale: Adult nj1 18:42 Pain Scale: Adult tl4 [place] Coma Score: 17:23 Eye Response: spontaneous(4). Motor Response: obeys commands(6). Verbal Response: tl4 oriented(5). Total: 15. MDM: 15:15 Patient medically screened. ec2 15:18 Data reviewed: vital signs. ED course: Patient arrives today for headache along with ec2 chest pain for examination remarkable for well-appearing nontoxic dividual is otherwise in no acute distress. Will obtain lab, EKG, chest x-ray as well as CT scan of the head. Evaluate for electrolyte disturbances, anemia, ACS, intracranial mass. Will give the patient Toradol for pain control.. 16:50 ED course: Chest x-ray and CT scan of the head showed no acute process.. ec2 17:08 ED course: EKG independently reviewed and interpreted by me, shows normal sinus rhythm, ec2 rate of 69, no acute ST segment elevations, intervals are nonconcerning.. 18:02 ED course: Metabolic profile with appropriate electrolytes and renal function, ec2 appropriate CBC, troponin within normal ranges, chest x-ray shows no acute intrathoracic process. . 08/15 15:18 Order name: Basic Metabolic Panel; Complete Time: 18:02 ec2 08/15 15:18 Order name: CBC with Diff; Complete Time: 18:02 ec2 08/15 15:18 Order name: Troponin HS; Complete Time: 18:02 ec2 08/15 15:18 Order name: XRAY Chest (1 view); Complete Time: 16:50 ec2 08/15 15:18 Order name: CT Head Brain wo Cont; Complete Time: 16:50 ec2 08/15 15:18 Order name: EKG; Complete Time: 15:19 ec2 08/15 15:18 Order name: Cardiac monitoring; Complete Time: 17:07 ec2 08/15 15:18 Order name: EKG - Nurse/Tech; Complete Time: 17:07 ec2 08/15 15:18 Order name: IV Saline Lock; Complete Time: 17:16 ec2 08/15 15:18 Order name: Labs collected and sent; Complete Time: 17:16 ec2 08/15 15:18 Order name: O2 Per Protocol; Complete Time: 17:07 ec2 08/15 15:18 Order name: O2 Sat Monitoring; Complete Time: 17:07 ec2 Administered Medications: 17:19 Drug: Ketorolac IVP 15 mg IVP once Route: IVP; Site: left forearm; tl4 17:58 Follow up: Response: No adverse reaction tl4 Disposition Summary: 08/16/23 18:06 Discharge Ordered Notes: Location: Home ec2 Condition: Stable ec2 Diagnosis - Headache ec2 - Chest pain, unspecified ec2 Followup: ec2 - With: Private Physician - When: - Reason: Re-evaluation by your physician Discharge Instructions: - Discharge Summary Sheet ec2 - General Headache Without Cause ec2 Forms: - Medication Reconciliation Form ec2 - Thank You Letter ec2 - Antibiotic Education ec2 - Prescription Opioid Use ec2 - Patient Portal Instructions ec2 - Leadership Thank You Letter ec2 Signatures: Dispatcher [employer] EDArleen August RN RN nj1 Denny Barker MD MD ec2 Puneet Shah RN RN tl4 Corrections: (The following items were deleted from the chart) 15:14 15:14 Immunization history: Client reports having NOT received the Covid vaccine. nj1 nj1 15:19 15:19 Chest Single View+RAD.RAD.BRZ ordered. EDVA EDVA 16:20 16:20 Patient medically screened. ec2 ec2
--- NOTE | 2023-08-16 18:07 | ER ---
Nurse's Notes [facility] Name: Daina Ibrahim Age: 38 yrs Sex: Female : 1985 Arrival Date: 08/16/2023 Time: 15:02 Bed 14 Private MD: Diagnosis: Headache;Chest pain, unspecified Presentation: 08/15 15:11 Chief complaint: Patient states: Headache yesterday, woke up this morning with jaw, nj1 neck and left shoulder pain, headache is better. Coronavirus screen: Vaccine status: Patient reports being unvaccinated. Ebola Screen: Patient denies travel to an Ebola-affected area in the 21 days before illness onset. Initial Sepsis Screen: Does the patient meet any 2 criteria? No. Patient's initial sepsis screen is negative. Does the patient have a suspected source of infection?. Risk Assessment: Do you want to hurt yourself or someone else? Patient reports no desire to harm self or others. Onset of symptoms was August 16, 2023. 15:11 Method Of Arrival: Ambulatory [facility] 15:11 Acuity: KARO 3 nj1 Triage Assessment: 15:14 General: Appears in no apparent distress. comfortable, Behavior is calm, cooperative, nj1 appropriate for age. Pain: Complains of pain in left shoulder, neck and chest. 15:16 Neuro: Level of Consciousness is awake, alert, obeys commands, Oriented to person, nj1 place, time, situation, Avionics Mechanic are equal bilaterally Moves all extremities. Gait is steady, Speech is normal, Facial symmetry appears normal, Tingling in left jaw. 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 - Infectious Disease History:: Denies. - Social history:: Smoking status: Patient reports the use of cigarette tobacco products, smokes one-half pack cigarettes per day. Screenin:24 [facility] ED Fall Risk Assessment (Adult) History of falling in the last 3 months, tl4 including since admission No falls in past 3 months (0 pts) Confusion or Disorientation No (0 pts) Intoxicated or Sedated No (0 pts) Impaired Gait No (0 pts) Mobility Assist Device Used No (0 pt) Altered Elimination No (0 pt) Score/Fall Risk Level 0 - 2 = Low Risk Oriented to surroundings, Maintained a safe environment, Educated pt \T\ family on fall prevention, incl call for assistance when getting out of bed, Assessed \T\ reinforced patient's understanding of fall precautions, Hourly rounding (assess needs \T\ fall precautionary measures) done, Used ambulatory aids as needed (educated on \T\ assisted with), Used gait belt as appropriate. Abuse screen: Denies threats or abuse. Denies injuries from another. Nutritional screening: No deficits noted. Tuberculosis screening: No symptoms or risk factors identified. Assessment: 17:19 General: Appears in no apparent distress. Behavior is calm, cooperative. Pain: tl4 Complains of pain in face, scalp, chest and left arm Pain does not radiate. Pain began gradually, 4 hours ago. Neuro: Level of Consciousness is awake, alert, obeys commands, Oriented to person, place, time, situation, Moves all extremities. Gait is steady, Speech is normal. Cardiovascular: Reports chest pain, Capillary refill < 3 seconds Patient's skin is warm and dry. Rhythm is sinus rhythm Chest pain quality is stabbing, is located in left anterior. Respiratory: Airway is patent Respiratory effort is even, unlabored, Respiratory pattern is regular, symmetrical, Breath sounds are clear bilaterally. GI: No signs and/or symptoms were reported involving the gastrointestinal system. : No signs and/or symptoms were reported regarding the genitourinary system. EENT: No signs and/or symptoms were reported regarding the EENT system. Derm: No signs and/or symptoms reported regarding the dermatologic system. Musculoskeletal: No signs and/or symptoms reported regarding the musculoskeletal system. 18:27 Reassessment: Patient and/or family updated on plan of care and expected duration. Pain tl4 level reassessed. Patient is alert, oriented x 3, equal unlabored respirations, skin warm/dry/pink. Patient states symptoms have improved. Vital Signs: 15:11 BP 130 / 83; Pulse 87; Resp 16; Temp 98.9; Pulse Ox 99% ; Weight 88.45 kg; Height 5 ft. nj1 5 in. ; Pain 8/10; 17:23 BP 124 / 77; Pulse 75; Resp 22; Pulse Ox 98% on R/A; tl4 18:00 BP 124 / 77; Pulse 81; Resp 16; Pulse Ox 99% on R/A; tl4 18:42 BP 116 / 79; Pulse 79; Resp 17; Temp 97.5(O); Pulse Ox 100% on R/A; Pain 5/10; tl4 15:11 Body Mass Index 32.45 (88.45 kg, 165.1 cm) nj1 15:11 Pain Scale: Adult nj1 18:42 Pain Scale: Adult tl4 Vitals: 17:23 Cardiac Rhythm Assessment Regular Sinus rhythm. tl4 [place] Coma Score: 17:23 Eye Response: spontaneous(4). Motor Response: obeys commands(6). Verbal Response: tl4 oriented(5). Total: 15. ED Course: 15:03 Patient arrived in ED. ec2 15:03 Denny Barker MD is Attending Physician. ec2 15:13 Triage completed. nj1 15:14 Arm band placed on right wrist. nj1 15:31 XRAY Chest (1 view) In Process Unspecified. EDMS 15:34 CT Head Brain wo Cont In Process Unspecified. EDMS 16:07 Patient placed in an exam room, on a stretcher. ll1 17:16 Basic Metabolic Panel Sent. em1 17:16 CBC with Diff Sent. em1 17:16 Troponin HS Sent. em1 17:17 EKG done, by ED staff, reviewed by Denny Barker MD. Inserted saline lock: 20 gauge in em1 left wrist, using aseptic technique. Blood collected. 17:24 Patient has correct armband on for positive identification. Placed in gown. Bed in low tl4 position. Call light in reach. Side rails up X 1. Provided Education on: ED process. Client placed on continuous cardiac and pulse oximetry monitoring. NIBP monitoring applied. compliance monitor on. Door closed. Noise minimized. Lights dimmed. Moved to private room. Warm blanket given. 17:25 No provider procedures requiring assistance completed. O2 via Room air. tl4 17:26 Initial lab(s) drawn, by ED staff, sent to lab. tl4 18:43 IV discontinued, intact, bleeding controlled, No redness/swelling at site. Pressure tl4 dressing applied. Administered Medications: 17:19 Drug: Ketorolac IVP 15 mg IVP once Route: IVP; Site: left forearm; tl4 17:58 Follow up: Response: No adverse reaction tl4 Medication: 17:24 VIS not applicable for this client. tl4 Outcome: 18:06 Discharge ordered by . ec2 18:43 Discharged to home tl4 18:43 Condition: good 18:43 Discharge instructions given to patient, Instructed on discharge instructions, follow up and referral plans. Demonstrated understanding of instructions, follow-up care, 18:44 Patient left the ED. tl4 Signatures: Dispatcher [employer] EDChet Contreras em1 Geronimo Ziegler RN RN ll1 Arleen Huggins RN RN [email or web address] Denny Barker MD MD ec2 Puneet Shah RN RN tl4 Corrections: (The following items were deleted from the chart) 15:14 15:14 Immunization history: Client reports having NOT received the Covid vaccine. nj1 nj1 15:20 15:16 Neuro: Level of Consciousness is awake, alert, obeys commands, Oriented to nj1 person, place, time, situation, Avionics Mechanic are equal bilaterally Moves all extremities. Gait is steady, Speech is normal, Facial symmetry appears normal, Tingling in left jaw nj1
[2023-08-16 22:12] VITALS: BP 116/79; TEMP 97.5; O2SAT 100
== END 2023-08-16 18:44 | disposition home or self-care (01) ==
LOC: ER 15:02
DX: R51.9 Headache, unspecified (principal); R07.9 Chest pain, unspecified
CPT/HCPCS: 36415; 70450; 71045; 80048; 84484; 85025; 93005; 96374; 99285

== ENCOUNTER 2024-09-14 19:52 | Emergency (ER) | payer SELFPAY ==
--- OUTSIDE RECORDS SUMMARY | 2024-09-14 19:55 | XMS REPORT | Continuity of Care Document ---
Author Name Unknown Address [address] [facility] [place] [address] [facility] Address [address] [facility] [address] [place] [address] Care Team Providers Care Damage Appraiser Name Role Phone Vanesa Live Primary Care Physician Un available CASSIA MELISSA Attending Clinician Unavail able MITRA MCCARTHY Attending Clinician UnavailMitra Ribeiro CNM Attending Clinician [phone] Belén Cassia TINEO Attending Clinician + Tyson Hernandez MD Attending Clinician [phone] TYSON HERNANDEZ Attending Clinician Unavailable Doctor Unassigned, [place] Attending Clinician U tristanailJUNIE Watson Attending Clinician UnavailJunie Hughes MD Attending Clinician [phone] Vanesa Live Attending Clinician + [phone] VANESA TIDWELL Attending Clinician Unavailab le Payers Payer Name Policy Type Policy Number Effective Date Expirati on Date Source [facility] [id number] 2022 00:00:00 Problems Condition Name Condition Details Condition Category Status Onset Date Resolution Date Last Treatment Date Treating Clinician Comments Source Screening examinatio n for STD (sexually transmitte d disease) Screening examinatio n for STD (sexually transmitte d disease) Disease Active 2021-05 0-12 00:00: 00 General acute hospital Breast discharge Breast discharge Disease Active 2021-05 00:00: 00 General acute hospital Breast abscess Breast abscess Disease Active 2021-05 00:00: 00 General acute hospital BMI 29.0-29.9, adult BMI 29.0-29.9, adult Disease Active 2021-05 00:00: 00 General acute hospital Overweight (BMI 25.0-29.9) Overweight (BMI 25.0-29.9) Disease Active 2021-05 00:00: 00 General acute hospital Allergies, Adverse Reactions, Alerts Allergy Name Allergy Type Status Severity Reaction(s) Onset Date Inactive Date Treating Clinician Comments Source [facility] Active Rash 08-31 00:00: 00 General acute hospital [place] [employer] to adverse reaction s Active Rash 08-31 00:00: 00 General acute hospital NO KNOWN ALLERGIE S Drug Class Active General acute hospital Social History Social Habit Start Date Stop Date Quantity Comments Source Gender identity [facility] Sexual orientation U [facility] Exposure to SARS-CoV-2 (event) 2022-08-21 00:00:00 2022-08-31 14:28:00 Not sure [facility] History of Social function 2022-02-11 00:00:00 2022-02-11 00:00:00 [facility] Sex Assigned At 1985 00:00:00 1985 00:00:00 [facility] Smoking Status Start Date Stop Date Source Tobacco smoking consumption unknown [facility] Medications Ordered Medication Name Filled Medication Name Start Date Stop Date Current Medication? Ordering Clinician Indication Dosage Frequency Signature (SIG) Comments Components Source amoxicillin 875 mg tablet 4-10 00:00: 00 Yes 1mg Hunterty Donis etodolac 200 mg capsule 2023-05 0 00:00: 00 Yes 1mg Hunterty Donis Celebrex 100 mg capsule 11-28 00:00: 00 Yes 1mg Hunter Debbie Donis meloxicam 7.5 mg tablet 10-31 00:00: 00 Yes 1mg Hunter Debbie Donis prednisone 10 mg tablet 08-17 00:00: 00 Yes 1mg Hunter Donis amoxicillin 875 mg-nicole florez clavulanate 125 mg tablet 08-17 00:00: 00 Yes 1mg Hunter Donis ibuprofen 800 mg tablet 08-17 00:00: 00 Yes 1mg Hunter Donis TAKE 1 TABLET TWICE DAILY WITH FOOD. 11-10 00:00: 00 08-17 00:00 :00 No [id number] Hunter Donis pantoprazol e 40 mg EC tablet 08-31 00:00: 00 10-15 04:59 :00 No [id number] Take 1 tablet by mouth daily for 14 days, THEN 1 tablet daily for 30 days. General acute hospital famotidine (PEPCID) 20 mg tablet 08-31 00:00: 00 09-08 04:59 :00 No [id number] 20mg Take 1 tablet by mouth in the morning and 1 tablet in the evening. Do all this for 7 days. General acute hospital TAKE 1 CAPSULE BY MOUTH EVERY DAY 1- 00:00: 00 08-17 00:00 :00 No 40 Hunter Donis No known medications 2021-05 012 09:30: 28 No No known medication s General acute hospital TAKE ONE 300 MG CAPSULE AND ONE 150 MG CAPSULE THREE TIMES A DAY 01-07 00:00: 00 Yes Hunter Donis gabapentin 300 mg capsule 10-08 00:00: 00 Yes 1mg Hunter Donis benzonatate 200 mg capsule 10-08 00:00: 00 Yes 1mg Hunter Donis Bromfed DM 2 mg-30 mg-10 mg/5 mL oral syrup 10-08 00:00: 00 Yes 10mg/5 mL Hunter Donis TAKE 1 TABLET BY MOUTH AT BEDTIME FOR SLEEP AND MOOD 10-08 00:00: 00 Yes Hunter Donis Dose Unknown 10-08 00:00: 00 Yes Hunter Donis prednisone 20 mg tablet 10-08 00:00: 00 Yes 1mg Hunter Donis diclofenac sodium 75 mg tablet,viet yed release 10-08 00:00: 00 Yes 1mg Hunter Donis azithromyci n 250 mg tablet 10-08 00:00: 00 Yes mg Hunter Donis Dose Unknown 07-30 00:00: 00 Yes Hunter Donis Dose Unknown 07-30 00:00: 00 Yes Hunter Donis ProAir HFA 90 mcg/actuati on aerosol inhaler 2020-05 00:00: 00 Yes 2mcg/ac tuation Hunter Donis Bromfed DM 2 mg-30 mg-10 mg/5 mL oral syrup 2020-05 00:00: 00 Yes 10mg/5 mL Hunter Donis metronidazo le 500 mg tablet 2020-05 00:00: 00 Yes 1mg Hunter Donis cephalexin 500 mg capsule 2020-05 0- 00:00: 00 Yes 1mg Hunter Donis Vital Signs Vital Name Observation Time Observation Value Comments S ource Systolic blood pressure 2022-08-31 19:37:00 117 mm[Hg] [facility] Diastolic blood pressure 2022-08-31 19:37:00 81 mm[Hg] [facility] Heart rate 2022-08-31 19:37:00 65 /min [facility] Respiratory rate 2022-08-31 19:37:00 18 /min [facility] Oxygen saturation in Arterial blood by Pulse oximetry 2022-08-31 19:37:00 99 /min [facility] Body temperature 2022-08-31 17:47:00 37.11 [facility] Body weight 2022-08-31 17:47:00 79.379 kg [facility] BMI 2022-08-31 17:47:00 29.12 kg/m2 [facility] Systolic blood pressure 2022-02-11 14:09:00 108 mm[Hg] [facility] Diastolic blood pressure 2022-02-11 14:09:00 69 mm[Hg] [facility] Heart rate 2022-02-11 14:09:00 65 /min [facility] Body temperature 2022-02-11 14:09:00 36.61 [facility] Respiratory rate 2022-02-11 14:09:00 18 /min [facility] Body height 2022-02-11 14:09:00 165.1 cm [facility] Body weight 2022-02-11 14:09:00 79.878 kg [facility] BMI 2022-02-11 14:09:00 29.30 kg/m2 [facility] BP Systolic 2024-02-29 10:38:00 114 mm[Hg] Step hen F Gagandeep BP Diastolic 2024-02-29 10:38:00 78 mm[Hg] Lino phen F Gagandeep Weight Measured 2024-02-29 10:38:00 198.40 pounds Hunter F Gagandeep Height Measured 2024-02-29 10:38:00 65.00 inches Hunter F Gagandeep Body Temperature 2024-02-29 10:38:00 97.00 degrees Hunter F Gagandeep Heart Rate 2024-02-29 10:38:00 66.00 /min Breana en F Gagandeep Respiratory Rate 2024-02-29 10:38:00 16.00 /min Hunter F Gagandeep BP Systolic 2023-11-29 13:41:00 124 mm[Hg] Step hen F Gagandeep BP Diastolic 2023-11-29 13:41:00 69 mm[Hg] Lino phen F Gagandeep Weight Measured 2023-11-29 13:41:00 196.00 pounds Hunter F Gagandeep Height Measured 2023-11-29 13:41:00 65.00 inches Hunter F Gagandeep Body Temperature 2023-11-29 13:41:00 98.10 degrees Hunter F Gagandeep Heart Rate 2023-11-29 13:41:00 78.00 /min Breana en F Gagandeep Respiratory Rate 2023-11-29 13:41:00 19.00 /min Hunter F Gagandeep BP Systolic 2023-11-01 10:13:00 111 mm[Hg] Step hen F Gagandeep BP Diastolic 2023-11-01 10:13:00 72 mm[Hg] Lino phen F Gagandeep Weight Measured 2023-11-01 10:13:00 202.80 pounds Hunter F Gagandeep Height Measured 2023-11-01 10:13:00 65.00 inches Hunter F Gagandeep Body Temperature 2023-11-01 10:13:00 97.40 degrees Hunter F Gagandeep Heart Rate 2023-11-01 10:13:00 73.00 /min Breana en F Gagandeep Respiratory Rate 2023-11-01 10:13:00 19.00 /min Hunter F Gagandeep Body Temperature 2023-08-18 16:03:00 97.90 degrees Hunter F Gagandeep Heart Rate 2023-08-18 16:03:00 83.00 /min Breana en F Gagandeep Respiratory Rate 2023-08-18 16:03:00 Hunter F Gagandeep BP Systolic 2023-08-18 16:03:00 118 mm[Hg] Step hen F Gagandeep BP Diastolic 2023-08-18 16:03:00 74 mm[Hg] Lino phen F Gagandeep Weight Measured 2023-08-18 16:03:00 195.60 pounds Hunter F Gagandeep Height Measured 2023-08-18 16:03:00 65.00 inches Hunter F Gagandeep BP Systolic 2022-11-10 13:24:00 113 mm[Hg] Step hen F Gagandeep BP Diastolic 2022-11-10 13:24:00 68 mm[Hg] Lino phen F Gagandeep Weight Measured 2022-11-10 13:24:00 194.80 pounds Hunter F Gagandeep Height Measured 2022-11-10 13:24:00 65.00 inches Hunter F Gagandeep Body Temperature 2022-11-10 13:24:00 97.30 degrees Hunter F Gagandeep Heart Rate 2022-11-10 13:24:00 85.00 /min Breana en F Gagandeep Respiratory Rate 2022-11-10 13:24:00 Hunter F Gagandeep BP Systolic 2022-01-07 08:54:00 113 mm[Hg] Step hen F Gagandeep BP Diastolic 2022-01-07 08:54:00 74 mm[Hg] Lino phen F Gagandeep Weight Measured 2022-01-07 08:54:00 175.60 pounds Hunter F Gagandeep Height Measured 2022-01-07 08:54:00 65.00 inches Hunter F Gagandeep Body Temperature 2022-01-07 08:54:00 98.20 degrees Hunter F Gagandeep Heart Rate 2022-01-07 08:54:00 82.00 /min Breana en F Gagandeep Respiratory Rate 2022-01-07 08:54:00 16.00 /min Hunter F Gagandeep BP Systolic 2021-12-23 08:59:00 111 mm[Hg] Step hen F Gagandeep BP Diastolic 2021-12-23 08:59:00 76 mm[Hg] Lino phen F Gagandeep Weight Measured 2021-12-23 08:59:00 178.80 pounds Hunter F Gagandeep Height Measured 2021-12-23 08:59:00 65.00 inches Hunter F Gagandeep Body Temperature 2021-12-23 08:59:00 97.70 degrees Hunter F Gagandeep Heart Rate 2021-12-23 08:59:00 78.00 /min Breana en F Gagandeep Respiratory Rate 2021-12-23 08:59:00 16.00 /min Hunter F Gagandeep BP Systolic 2021-10-08 13:49:00 121 mm[Hg] Step hen F Gagandeep BP Diastolic 2021-10-08 13:49:00 78 mm[Hg] Lino phen F Gagandeep Weight Measured 2021-10-08 13:49:00 181.00 pounds Hunter F Gagandeep Height Measured 2021-10-08 13:49:00 65.00 inches Hunter F Gagandeep Body Temperature 2021-10-08 13:49:00 98.20 degrees Hunter F Gagandeep Heart Rate 2021-10-08 13:49:00 72.00 /min Breana en F Gagandeep Respiratory Rate 2021-10-08 13:49:00 16.00 /min Hunter F Gagandeep BP Systolic 2021-05-16 13:39:00 109 mm[Hg] Step hen F Gagandeep BP Diastolic 2021-05-16 13:39:00 73 mm[Hg] Lino phen F Gagandeep Weight Measured 2021-05-16 13:39:00 178.40 pounds Hunter F Gagandeep Height Measured 2021-05-16 13:39:00 65.00 inches Hunter F Gagandeep Body Temperature 2021-05-16 13:39:00 98.60 degrees Hunter F Gagandeep Heart Rate 2021-05-16 13:39:00 92.00 /min Breana en F Gagandeep Respiratory Rate 2021-05-16 13:39:00 Hunter F Gagandeep BP Systolic 2021-04-14 09:41:00 Step hen F Gagandeep BP Diastolic 2021-04-14 09:41:00 Lino phen F Gagandeep Weight Measured 2021-04-14 09:41:00 172.30 pounds Hunter F Gagandeep Height Measured 2021-04-14 09:41:00 65.00 inches Hunter F Gagandeep Body Temperature 2021-04-14 09:41:00 Hunter F Gagandeep Heart Rate 2021-04-14 09:41:00 Breana en F Gagandeep Respiratory Rate 2021-04-14 09:41:00 Hunter F Gagandeep BP Systolic 2021-03-22 08:52:00 114 mm[Hg] Step hen F Gagandeep BP Diastolic 2021-03-22 08:52:00 77 mm[Hg] Lino phen F Gagandeep Weight Measured 2021-03-22 08:52:00 172.30 pounds Hunter F Gagandeep Height Measured 2021-03-22 08:52:00 65.00 inches Hunter F Gagandeep Body Temperature 2021-03-22 08:52:00 Hunter F Gagandeep Heart Rate 2021-03-22 08:52:00 90.00 /min Breana en F Gagandeep Respiratory Rate 2021-03-22 08:52:00 Hunter F Gagandeep BP Systolic 2021-03-13 17:20:00 109 mm[Hg] Step hen F Gagandeep BP Diastolic 2021-03-13 17:20:00 73 mm[Hg] Lino phen F Gagandeep Weight Measured 2021-03-13 17:20:00 174.80 pounds Hunter F Gagandeep Height Measured 2021-03-13 17:20:00 65.00 inches Hunter F Gagandeep Body Temperature 2021-03-13 17:20:00 98.10 degrees Hunter F Gagandeep Heart Rate 2021-03-13 17:20:00 99.00 /min Breana en F Gagandeep Respiratory Rate 2021-03-13 17:20:00 Hunter F Gagandeep BP Systolic 2021-02-27 12:20:00 117 mm[Hg] Step hen F Gagandeep BP Diastolic 2021-02-27 12:20:00 66 mm[Hg] Lino phen F Gagandeep Weight Measured 2021-02-27 12:20:00 178.60 pounds Hunter F Gagandeep Height Measured 2021-02-27 12:20:00 65.00 inches Hunter Donis Body Temperature 2021-02-27 12:20:00 98.30 degrees Hunter Donis Heart Rate 2021-02-27 12:20:00 92.00 /min Breana Donis Respiratory Rate 2021-02-27 12:20:00 Hunter Donis Procedures Procedure Date / Time Performed Performing Clinician Source LIPASE 2022-08-31 18:19:00 Tyson Hernandez [facility] COMP. METABOLIC PANEL ([id number]) 2022-08-31 18:19:00 Tyson Hernandez [facility] CBC WITH DIFF 2022-08-31 18:19:00 Tyson Hernandez [facility] CONSENT/REFUSAL FOR DIAGNOSIS AND TREATMENT 2022-08-31 17:31:28 Doctor Unassigned, [place] [facility] EXTERNAL PROVIDER RECORDS 2022-04-03 06:01:00 Doctor Unassigned, [place] [facility] EXTERNAL PROVIDER RECORDS 2022-02-25 05:01:00 Doctor Unassigned, [place] [facility] BCCS-RELATED DOCUMENTATION 2022-02-20 05:01:00 Doctor Unassigned, [place] [facility] BI DIAGNOSTIC TOMOSYNTHESIS BILATERAL 2022-02-13 14:43:47 Junie Chambers [facility] NOTICE OF PRIVACY PRACTICES 2022-02-11 13:51:06 Doctor Unassigned, [place] [facility] [id number] Colposcopy Cervix Endocervical Curettage 2021-05-16 00:00:00 Hunter Donis [id number] Colposcopy Cervix Bx Cervix endocrv Curtg 2021-03-22 00:00:00 Hunter Donis Encounters Start Date/Time End Date/Time Encounter Type Admission Type Attending Clinicians Care Facility Care Department Encounter ID Source 2024-08-10 16:14:42 2024-08-10 16:14:42 Outpatient [facility] [id number] Hunter Donis 2024-08-10 00:00:00 2024-08-10 00:00:00 Outpatient Visit [facility] [id number] Hunter Donis 2024-02-29 10:30:03 2024-02-29 10:30:03 Outpatient SFA [facility] [id number] Hunter Donis 2024-02-10 10:33:57 2024-02-10 10:33:57 Outpatient SFA [facility] [id number] Hunter Donis 2023-12-07 10:06:32 2023-12-07 10:06:32 Outpatient SFA S[facility] [id number] Hunter Donis 2023-11-29 13:34:24 2023-11-29 13:34:24 Outpatient SFA SFA [id number] Hunter Donis 2023-11-29 00:00:00 2023-11-29 00:00:00 Outpatient Visit [facility] [id number] Hunter Donis 2023-11-01 10:07:19 2023-11-01 10:07:19 Outpatient SFA SFA [id number] Hunter Donis 2023-11-01 00:00:00 2023-11-01 00:00:00 Outpatient Visit [facility] [id number] Hunter Donis 2023-08-18 15:58:26 2023-08-18 15:58:26 Outpatient SFA SFA [id number] Hunter Donis 2023-08-18 00:00:00 2023-08-18 00:00:00 Outpatient Visit [facility] [id number] Hunter Donis 2023-02-22 09:00:00 2023-02-22 09:00:00 Outpatient CASSIA STALLINGS [facility] [id number] General acute hospital 2022-12-09 00:00:00 2022-12-09 00:00:00 Telephone Mitra Mccarthy [facility] PHYSICAL EDUCATION AIDE [facility]ILD [facility] [id number] 350.1.13.10 4.2.7.2.686 [id number] General acute hospital 2022-11-11 00:00:00 2022-11-11 00:00:00 Telephone Cassia Melissa [facility] PHYSICAL EDUCATION AIDE [facility] [id number] 350.1.13.10 4.2.7.2.686 [id number] General acute hospital 2022-11-10 13:18:33 2022-11-10 13:18:33 Outpatient [facility] [id number] Hunter Donis 2022-11-10 00:00:00 2022-11-10 00:00:00 Outpatient Visit SFA [id number] Hunter Donis 2022-08-31 12:48:00 2022-08-31 14:40:00 Emergency Tyson Hernandez [facility] 1..840.114 350.1.13.10 4.2.7.2.686 [id number] General acute hospital 2022-08-31 12:48:00 2022-08-31 14:40:00 Emergency X TYSON HERNANDEZ [facility] ERT [id number] General acute hospital 2022-06-02 00:00:00 2022-06-02 00:00:00 Outpatient Visit SFA [id number] Hunter Donis 2022-04-07 11:13:39 2022-04-07 11:13:39 Outpatient [facility] [id number] Hunter Donis 2022-04-07 00:00:00 2022-04-07 00:00:00 Outpatient Visit SFA [id number] Hunter Donis 2022-04-03 00:00:00 2022-04-03 00:00:00 Orders Only Doctor Unassigned, [place] [facility] 1.0.114 350.1.13.10 4.2.7.2.686 [id number] General acute hospital 2022-03-23 00:00:00 2022-03-23 00:00:00 Telephone Cassia Melissa [facility] PHYSICAL EDUCATION AIDE [facility] CHILD [facility] 1.840.114 350.1.13.10 4.2.7.2.686 [id number] General acute hospital 2022-02-25 00:00:00 2022-02-25 00:00:00 Orders Only Doctor Unassigned, [place] [facility] 1..114 350.1.13.10 4.2.7.2.686 [id number] General acute hospital 2022-02-23 00:00:00 2022-02-23 00:00:00 Outpatient R JUNIE CHAMBERS [facility] [id number] General acute hospital 2022-02-20 15:00:00 2022-02-20 15:00:00 Outpatient R [facility] [id number] General acute hospital 2022-02-20 00:00:00 2022-02-20 00:00:00 Orders Only Doctor Unassigned, [place] [facility] ..114 350.1.13.10 4.2.7.2.686 [id number] General acute hospital 2022-02-19 00:00:00 2022-02-19 00:00:00 Telephone Cassia Melissa [facility] PHYSICAL EDUCATION AIDE [facility] CHILD [facility] 1..114 350.1.13.10 4.2.7.2.686 [id number] General acute hospital 2022-02-16 00:00:00 2022-02-16 00:00:00 Telephone Junie Chambers [facility] 1.2.840.114 350.1.13.10 4.2.7.2.686 [id number] General acute hospital 2022-02-13 09:43:47 2022-02-13 23:59:00 Outpatient R JUNIE CHAMBERS [facility] [id number] General acute hospital 2022-02-13 09:43:47 2022-02-13 23:59:00 Hospital Encounter Junie Chambers [facility] 1.840.114 350.1.13.10 4.2.7.2.686 [id number] General acute hospital 2022-02-12 00:00:00 2022-02-12 00:00:00 Telephone Junie Chambers [facility] 1..114 350.1.13.10 4.2.7.2.686 [id number] General acute hospital 2022-02-11 08:45:00 2022-02-11 11:03:34 Office Visit Vanesa Tidwell [facility] PHYSICAL EDUCATION AIDE [facility] 1..114 350.1.13.10 4.2.7.2.686 [id number] General acute hospital 2022-02-11 08:45:00 2022-02-11 11:03:34 Outpatient R VANESA TIDWELL [facility] [id number] General acute hospital 2022-02-11 00:00:00 2022-02-11 00:00:00 Orders Only Doctor Unassigned, [place] [facility] 1..114 350.1.13.10 4.2.7.2.686 [id number] General acute hospital 2022-02-11 00:00:00 2022-02-11 00:00:00 Letter (Out) Vanesa Tidwell [facility] PHYSICAL EDUCATION AIDE [facility] 1.2.840.114 350.1.13.10 4.2.7.2.686 [id number] General acute hospital 2022-01-07 00:00:00 2022-01-07 00:00:00 Outpatient Visit [facility] [id number] Hunter Donis 2021-12-23 00:00:00 2021-12-23 00:00:00 Outpatient Visit [facility] [id number] Hunter Donis Results Test Description Test Time Test Comments Results Result Co mments Source Hunter DonisRHEUMATOID FACTOR, [id number] 00:00:00* Test Item Value Reference Range Interpretation Comme vladimir RHEUMATOID FACTOR, QUANT (te st code = 3502) <10 IU/ML Hunter DonisC-REACTIVE [id number] 00:00:00* Test Item Value Reference Range Interpretation Comme vladimir C-REACTIVE PROTEIN (test cod e = 3513) 0.3 MG/DL Hunter DonisHEMOGLOBIN [id number] 00:00:00* Test Item Value Reference Range Interpretation Comme vladimir HEMOGLOBIN A1c (test code = 34683) 5.3 % Hunter DonisCOMPREHENSIVE METABOLIC [id number] 00:00:00* Test Item Value Reference Range Interpretation Comme nts GLUCOSE (test code = 2217) 91 MG/DL BUN (test code = 2208) 11 MG/DL CREATININE (test code = 2214) 0.92 MG/DL eGFR (2020 CKD-EPI) (test co de = 12366) 83 ML/MIN/1.73 CALC BUN/CREAT (test code = 2235) 12 RATIO SODIUM (test code = 2231) 142 MEQ/L POTASSIUM (test code = 2228) 4.3 MEQ/L CHLORIDE (test code = 2215) 103 MEQ/L CARBON DIOXIDE (test code = 2206) 25 MEQ/L CALCIUM (test code = 2209) 9.7 MG/DL PROTEIN, TOTAL (test code = 2229) 6.9 G/DL ALBUMIN (test code = 2201) 5.0 G/DL CALC GLOBULIN (test code = 2240) 1.9 G/DL CALC A/G RATIO (test code = 2234) 2.6 RATIO BILIRUBIN, TOTAL (test code = 2207) 0.3 MG/DL ALKALINE PHOSPHATASE (test code = 2204) 70 U/L AST (test code = 2218) 21 U/L ALT (test code = 2219) 24 U/L Hunter Conde. METABOLIC PANEL ([id number])2022-08-31 18:47:10* Test Item Value Reference Range Interpretation Comme nts NA (test code = 2917548480) 137 mmol/L 135-145 K (test code = 9147515621) 4.6 mmol/L 3.5-5.0 CL (test code = 8509358234) 107 mmol/L 98-108 CO2 TOTAL (test code = 2265039010) 25 mmol/L 23-31 AGAP (test code = 8640481500) 5 2-16 BUN (test code = 7042171027) 16 mg/dL 7-23 GLUCOSE (test code = 8576123493) 98 mg/dL 70-110 CREATININE (test code = 5095588587) 0.61 mg/dL 0.50-1.04 TOTAL BILI (test code = 9674333614) 0.8 mg/dL 0.1-1.1 CALCIUM (test code = 4194942128) 10.7 mg/dL 8.6-10.6 H T PROTEIN (test code = 2934478481) 7.2 g/dL 6.3-8.2 ALBUMIN (test code = 5737603266) 4.5 g/dL 3.5-5.0 ALK PHOS (test code = 2864406784) 51 U/L 34-122 ALTv (test code = 1742-6) 28 U/L 5-35 AST(SGOT) (test code = 3405490093) 28 U/L 13-40 eGFR (test code = 8986129320) 111.6 mL/min/1.73m2 BARBRA (test code = BARBRA) Association of Glomerular Filtration Rate (GFR) and Staging of Kidney Disease* + --+ --+ ------+| GFR (mL/min/1.73 m2) ?| With Kidney Damage ?| ?Without Kidney Damage+ --------+ --------+ +| ?>90 ?| ?Stage one ?| ? Normal ?+ ---+ ---+ -------+| ?60-89 ?| ?Stage two ?| ? Decreased GFR ? + --+ --+ ------+| ?30-59 ?| ?Stage three ?| ? Stage three ? + --+ --+ ------+| ?15-29 ?| ?Stage four ? | ? Stage four ?+ ---+ ---+ -------+| ?<15 (or dialysis) ? ?| ?Stage five ? | ? Stage five ?+ ---+ ---+ -------+ *Each stage assumes the associated GFR level has been in effect for at least three months. ?Stages 1 to 5, with or without kidney disease, indicate chronic kidney disease. Notes: Determination of stages one and two (with eGFR >59mL/min/1.73 m2) requires estimation of kidney damage for at least three months as defined by structural or functional abnormalities of the kidney, manifested by either:Pathological abnormalities or Markers of kidney damage (including abnormalities in the composition of the blood or urine or abnormalities in imaging tests). Lab Interpretation (test code = 31460-7) [facility] Test Item Value Reference Range Interpretation Comme nts LIPASE (test code = 0288679270) 75 U/L 0-220 Lab Interpretation (test cod e = 37998-1) [id number] 18:34:05* Test Item Value Reference Range Interpretation Comme nts WBC (test code = 6690-2) 7.76 See_Comment [[email or web address] [email or web address]] The system which generated this result transmitted reference range: 4.30 - 11.10 10*3/?L. The reference range was not used to interpret this result as normal/abnormal. RBC (test code = 789-8) 4.39 See_Comment [Automated [email or web address]] The system which generated this result transmitted [...] 34.2 g/dL 31.6-35.1 RDW-SD (test code = 31975-6) 43.8 fL 39.0-49.9 RDW-CV (test code = 788-0) 12.8 % 12.0-15.5 PLT (test code = 777-3) 341 See_Comment [Automated messa ge] The system which generated this result transmitted reference range: 166 - 358 10*3/?L. The reference range was not used to interpret this result as normal/abnormal. MPV (test code = 25761-4) 10.0 fL 9.5-12.9 NRBC/100 WBC (test code = 7909231681) 0.0 See_Comment [Automated me ssage] The system which generated this result transmitted reference range: 0.0 - 10.0 /100 WBCs. The reference range was not used to interpret this result as normal/abnormal. NRBC x10^3 (test code = 6472305912) See_Comment [Automated me ssage] The system which generated this result transmitted reference range: 10*3/?L. The reference range was not used to interpret this result as normal/abnormal. GRAN MAT (NEUT) % (test code = 770-8) 62.4 % IMM GRAN % (test code = 9216018335) 0.40 % LYMPH % (test code = 736-9) 28.4 % MONO % (test code = 5905-5) 7.3 % EOS % (test code = 713-8) 1.2 % BASO % (test code = 706-2) 0.3 % GRAN MAT x10^3(ANC) (test code = 7836946262) 4.85 10*3/uL 1.88-7.09 IMM GRAN x10^3 (test code = 8524921059) 0.03 10*3/uL 0.00-0.06 LYMPH x10^3 (test code = 731-0) 2.20 10*3/uL 1.32-3.29 MONO x10^3 (test code = 742-7) 0.57 10*3/uL 0.33-0.92 EOS x10^3 (test code = 711-2) 0.09 10*3/uL 0.03-0.39 BASO x10^3 (test code = 704-7) 0.01-0.07 [facility] [id number] 11:43:55 Name: Daina: 1985 Sex: F - DIAG MAMM BILATERAL BLAYNE CAD DIGITAL- BREAST ULTRASOUND BILATERALBILATERAL DIGITAL DIAGNOSTIC MAMMOGRAM 3D/2D WITH CAD: 2CLINICAL: Discharge, left breast, Xthree weeks.Diffuse pain and swelling, left breast, Xthree weeks. Digital breast tomosynthesis was performed in addition to routine CC and MLO views. Current mammographic images were evaluated by [employer] CAD (computer-aided detection) software. Comparison ismade to exams dated 07/06/2019 mammogram, 06/23/2019 ultrasound, 06/23/2019 mammogram, and 06/14/2019 mammogram - [facility]. The tissue of both breasts [...] ultrasound, 06/23/2019 mammogram, and 06/14/2019 mammogram - [facility]. Color flow and real-time ultrasound [...] - 01/28/2022 12:05:51Imaging Technologist: Radha SOTELO, [facility]-; Sabine SOTELO, [facility]-letter sent: Short Term Follow Up Mammogram BI-RADS: 0 Incomplete: Additional Imaging Evaluation Needed Ultrasound BI-RADS: 3 Probably benignBREAST ULTRASOUND [id number] 11:43:55Name: Daina JAQUI: 1985 Sex: F AMENDMENT: 03/06/2022 Kalpana Ray M.D. RECOMMENDATIONS:1. Left breast: In view of patient's complaint of recurrent breast abscesses,would recommend skin punch biopsy at the 2 o'clock position, 2 cm from the nipple, at time of abscess drainage. Amended BI-RADS: 3 Probably benignDIAG MAMM BILATERAL BLAYNE CAD [id number] 11:43:55Name: Daina: 1985 Sex: F - DIAG MAMM BILATERAL BLAYNE CAD DIGITAL- BREAST ULTRASOUND BILATERALBILATERAL DIGITAL DIAGNOSTIC MAMMOGRAM 3D/2D WITH CAD: 01/28/2022LINICAL: Discharge, left breast, Xthree weeks.Diffuse pain and swelling, left breast, Xthree weeks. Digital breast tomosynthesis was performed in addition to routine CC and MLO views. Current mammographic images were evaluated by [employer] CAD (computer-aided detection) software. Comparison ismade to exams dated 07/06/2019 mammogram, 06/23/2019 ultrasound, 06/23/2019 mammogram, and 06/14/2019 mammogram - [facility]. The tissue of both breasts [...] ultrasound, 06/23/2019 mammogram, and 06/14/2019 mammogram - [facility]. Color flow and real-time ultrasound [...] - 01/28/2022 12:05:51Imaging Technologist: Radha SOTELO, [facility]-; Sabine SOTELO, [facility]-letter sent: Short Term Follow Up Mammogram BI-RADS: 0 Incomplete: Additional Imaging Evaluation Needed Ultrasound BI-RADS: 3 Probably benignDIAG MAMM BILATERAL BLAYNE CAD DIGITAL 2022-01-28 11:43:55 Name: Daina JAQUI: 1985 Sex: F AMENDMENT: 03/06/2022 Kalpana Ray M.D. RECOMMENDATIONS:1. Left breast: In view of patient's complaint of recurrent breast abscesses,would recommend skin punch biopsy at the 2 o'clock position, 2 cm from the nipple, at time of abscess drainage. Amended BI-RADS: 3 Probably benignANA REFLEX AUTOIMMUNE AB [id number] 12:48:05* Test Item Value Reference Range Interpretation Comme [facility] ANTI-NUCLEAR ANTIBODIES (test code = 3506) NEGATIVE NEGATIVE Methodology is I ndirect Immunofluorescent Assay (IFA) with a titering system using [id number] cells (Hep2 cells transfected with SS-A/Ro). SEDIMENTATION [id number] 09:32:29* Test Item Value Reference Range Interpretation Comme [facility] SEDIMENTATION RATE (test cod e = 1017) 2 MM/HOUR 0-20 C-REACTIVE [id number] 06:45:15* Test Item Value Reference Range Interpretation Comme [facility] C-REACTIVE PROTEIN (test cod e = 3513) <0.3 MG/DL <0.5 RHEUMATOID FACTOR, [id number] 06:45:15* Test Item Value Reference Range Interpretation Comme [facility] RHEUMATOID FACTOR, QUANT (te st code = 3502) <10 IU/ML <14 URIC [id number] 06:27:17* Test Item Value Reference Range Interpretation Comme [facility] URIC ACID (test code = 2233) 4.9 MG/DL 2.7-6.1 VITAMIN D, 25 [id number] 06:02:09* Test Item Value Reference Range Interpretation Comme [facility] VITAMIN D, 25 OH (test code [...] 30-100 UNLESS OTHERWISE INDICATED, ALL TESTING PERFORMED [facility] [employer] [address] [place] [address] [employer] ASSOCIATE: RAÚL FLOREZ M.D. [place] NUMBER [id number] [facility] [place]. [id number] URIC [id number] 00:00:00* Test Item Value Reference Range Interpretation Comme nts URIC ACID (test code = 2233) 4.9 MG/DL Hunter Lewis AustinANA REFLEX AUTOIMMUNE AB [id number] 00:00:00* Test Item Value Reference Range Interpretation Comme nts ANTI-NUCLEAR ANTIBODIES (gemma t code = 3506) NEGATIVE Hunter Lewis AustinSEDIMENTATION [id number] 00:00:00* Test Item Value Reference Range Interpretation Comme nts SEDIMENTATION RATE (test cod e = 1017) 2 MM/HOUR Hunter Lewis AustinC-REACTIVE [id number] 00:00:00* Test Item Value Reference Range Interpretation Comme nts C-REACTIVE PROTEIN (test cod e = 3513) <0.3 MG/DL Hunter Lewis AustinRHEUMATOID FACTOR, [id number] 00:00:00* Test Item Value Reference Range Interpretation Comme nts RHEUMATOID FACTOR, QUANT (te st code = 3502) <10 IU/ML Hunter DonisVITAMIN D, 25 [id number] 00:00:00* Test Item Value Reference Range Interpretation Comme nts VITAMIN D, 25 OH (test code = 4958) 28 NG/ML Hunter Lewis AustinURIC [id number] 00:00:00* Test Item Value Reference Range Interpretation Comme nts URIC ACID (test code = 2233) 4.9 MG/DL Hunter Lewis AustinANA REFLEX AUTOIMMUNE AB [id number] 00:00:00* Test Item Value Reference Range Interpretation Comme nts ANTI-NUCLEAR ANTIBODIES (gemma t code = 3506) NEGATIVE Hunter Lewis AustinSEDIMENTATION [id number] 00:00:00* Test Item Value Reference Range Interpretation Comme nts SEDIMENTATION RATE (test cod e = 1017) 2 MM/HOUR Hunter F AustinC-REACTIVE [id number] 00:00:00* Test Item Value Reference Range Interpretation Comme nts C-REACTIVE PROTEIN (test cod e = 3513) <0.3 MG/DL Hunter Lewis AustinRHEUMATOID FACTOR, [id number] 00:00:00* Test Item Value Reference Range Interpretation Comme nts RHEUMATOID FACTOR, QUANT (te st code = 3502) <10 IU/ML Hunter Lewis AustinVITAMIN D, 25 [id number] 00:00:00* Test Item Value Reference Range Interpretation Comme nts VITAMIN D, 25 OH (test code = 4958) 28 NG/ML Hunter Lewis AustinURIC [id number] 00:00:00* Test Item Value Reference Range Interpretation Comme nts URIC ACID (test code = 2233) 4.9 MG/DL Hunter DonisANA REFLEX AUTOIMMUNE AB [id number] 00:00:00* Test Item Value Reference Range Interpretation Comme nts ANTI-NUCLEAR ANTIBODIES (gemma t code = 3506) NEGATIVE Hunter Lewis AustinSEDIMENTATION [id number] 00:00:00* Test Item Value Reference Range Interpretation Comme nts SEDIMENTATION RATE (test cod e = 1017) 2 MM/HOUR Hunter Lewis AustinC-REACTIVE [id number] 00:00:00* Test Item Value Reference Range Interpretation Comme nts C-REACTIVE PROTEIN (test cod e = 3513) <0.3 MG/DL Hunter DonisRHEUMATOID FACTOR, [id number] 00:00:00* Test Item Value Reference Range Interpretation Comme nts RHEUMATOID FACTOR, QUANT (te st code = 3502) <10 IU/ML Hunter Lewis AustinVITAMIN D, 25 [id number] 00:00:00* Test Item Value Reference Range Interpretation Comme nts VITAMIN D, 25 OH (test code = 4958) 28 NG/ML Hunter Lewis AustinURIC [id number] 00:00:00* Test Item Value Reference Range Interpretation Comme nts URIC ACID (test code = 2233) 4.9 MG/DL Hunter Lewis AustinANA REFLEX AUTOIMMUNE AB [id number] 00:00:00* Test Item Value Reference Range Interpretation Comme nts ANTI-NUCLEAR ANTIBODIES (gemma t code = 3506) NEGATIVE Hunter Lewis AustinSEDIMENTATION [id number] 00:00:00* Test Item Value Reference Range Interpretation Comme nts SEDIMENTATION RATE (test cod e = 1017) 2 MM/HOUR Hunter Lewis AustinC-REACTIVE [id number] 00:00:00* Test Item Value Reference Range Interpretation Comme nts C-REACTIVE PROTEIN (test cod e = 3513) <0.3 MG/DL Hunter Lewis AustinRHEUMATOID FACTOR, [id number] 00:00:00* Test Item Value Reference Range Interpretation Comme nts RHEUMATOID FACTOR, QUANT (te st code = 3502) <10 IU/ML Hunter Lewis AustinVITAMIN D, 25 [id number] 00:00:00* Test Item Value Reference Range Interpretation Comme nts VITAMIN D, 25 OH (test code = 4958) 28 NG/ML Hunter Lewis AustinURIC [id number] 00:00:00* Test Item Value Reference Range Interpretation Comme nts URIC ACID (test code = 2233) 4.9 MG/DL Hunter DonisANA REFLEX AUTOIMMUNE AB [id number] 00:00:00* Test Item Value Reference Range Interpretation Comme nts ANTI-NUCLEAR ANTIBODIES (gemma t code = 3506) NEGATIVE Hunter Lewis AustinSEDIMENTATION [id number] 00:00:00* Test Item Value Reference Range Interpretation Comme nts SEDIMENTATION RATE (test cod e = 1017) 2 MM/HOUR Hunter DonisC-REACTIVE [id number] 00:00:00* Test Item Value Reference Range Interpretation Comme nts C-REACTIVE PROTEIN (test cod e = 3513) <0.3 MG/DL Hunter DonisRHEUMATOID FACTOR, [id number] 00:00:00* Test Item Value Reference Range Interpretation Comme nts RHEUMATOID FACTOR, QUANT (te st code = 3502) <10 IU/ML Hunter Lewis AustinVITAMIN D, 25 [id number] 00:00:00* Test Item Value Reference Range Interpretation Comme nts VITAMIN D, 25 OH (test code = 4958) 28 NG/ML Hunter Lewis AustinURIC [id number] 00:00:00* Test Item Value Reference Range Interpretation Comme nts URIC ACID (test code = 2233) 4.9 MG/DL Hunter F AustinANA REFLEX AUTOIMMUNE AB [id number] 00:00:00* Test Item Value Reference Range Interpretation Comme nts ANTI-NUCLEAR ANTIBODIES (gemma t code = 3506) NEGATIVE Hunter Lewis AustinSEDIMENTATION [id number] 00:00:00* Test Item Value Reference Range Interpretation Comme nts SEDIMENTATION RATE (test cod e = 1017) 2 MM/HOUR Hunter F AustinC-REACTIVE [id number] 00:00:00* Test Item Value Reference Range Interpretation Comme nts C-REACTIVE PROTEIN (test cod e = 3513) <0.3 MG/DL Hunter Lewis AustinRHEUMATOID FACTOR, [id number] 00:00:00* Test Item Value Reference Range Interpretation Comme nts RHEUMATOID FACTOR, QUANT (te st code = 3502) <10 IU/ML Hunter Lewis AustinVITAMIN D, 25 [id number] 00:00:00* Test Item Value Reference Range Interpretation Comme nts VITAMIN D, 25 OH (test code = 4958) 28 NG/ML Hunter Lewis AustinURIC [id number] 00:00:00* Test Item Value Reference Range Interpretation Comme nts URIC ACID (test code = 2233) 4.9 MG/DL Hunter Lewis AustinANA REFLEX AUTOIMMUNE AB [id number] 00:00:00* Test Item Value Reference Range Interpretation Comme nts ANTI-NUCLEAR ANTIBODIES (gemma t code = 3506) NEGATIVE Hunter Lewis AustinSEDIMENTATION [id number] 00:00:00* Test Item Value Reference Range Interpretation Comme nts SEDIMENTATION RATE (test cod e = 1017) 2 MM/HOUR Hunter F AustinC-REACTIVE [id number] 00:00:00* Test Item Value Reference Range Interpretation Comme nts C-REACTIVE PROTEIN (test cod e = 3513) <0.3 MG/DL Hunter Lewis AustinRHEUMATOID FACTOR, [id number] 00:00:00* Test Item Value Reference Range Interpretation Comme nts RHEUMATOID FACTOR, QUANT (te st code = 3502) <10 IU/ML Hunter Lewis AustinVITAMIN D, 25 [id number] 00:00:00* Test Item Value Reference Range Interpretation Comme nts VITAMIN D, 25 OH (test code = 4958) 28 NG/ML Hunter F AustinURIC [id number] 00:00:00* Test Item Value Reference Range Interpretation Comme nts URIC ACID (test code = 2233) 4.9 MG/DL Hunter Lewis AustinANA REFLEX AUTOIMMUNE AB [id number] 00:00:00* Test Item Value Reference Range Interpretation Comme nts ANTI-NUCLEAR ANTIBODIES (gemma t code = 3506) NEGATIVE Hunter Lewis AustinSEDIMENTATION [id number] 00:00:00* Test Item Value Reference Range Interpretation Comme nts SEDIMENTATION RATE (test cod e = 1017) 2 MM/HOUR Hunter Lewis AustinC-REACTIVE [id number] 00:00:00* Test Item Value Reference Range Interpretation Comme nts C-REACTIVE PROTEIN (test cod e = 3513) <0.3 MG/DL Hunter Lewis AustinRHEUMATOID FACTOR, [id number] 00:00:00* Test Item Value Reference Range Interpretation Comme nts RHEUMATOID FACTOR, QUANT (te st code = 3502) <10 IU/ML Hunter DonisVITAMIN D, 25 [id number] 00:00:00* Test Item Value Reference Range Interpretation Comme nts VITAMIN D, 25 OH (test code = 4958) 28 NG/ML Hunter Lewis AustinURIC [id number] 00:00:00* Test Item Value Reference Range Interpretation Comme nts URIC ACID (test code = 2233) 4.9 MG/DL Hunter DonisANA REFLEX AUTOIMMUNE AB [id number] 00:00:00* Test Item Value Reference Range Interpretation Comme nts ANTI-NUCLEAR ANTIBODIES (gemma t code = 3506) NEGATIVE Hunter Lewis AustinSEDIMENTATION [id number] 00:00:00* Test Item Value Reference Range Interpretation Comme nts SEDIMENTATION RATE (test cod e = 1017) 2 MM/HOUR Hunter Lewis AustinC-REACTIVE [id number] 00:00:00* Test Item Value Reference Range Interpretation Comme nts C-REACTIVE PROTEIN (test cod e = 3513) <0.3 MG/DL Hunter Lewis AustinRHEUMATOID FACTOR, [id number] 00:00:00* Test Item Value Reference Range Interpretation Comme nts RHEUMATOID FACTOR, QUANT (te st code = 3502) <10 IU/ML Hunter DonisVITAMIN D, 25 [id number] 00:00:00* Test Item Value Reference Range Interpretation Comme nts VITAMIN D, 25 OH (test code = 4958) 28 NG/ML Hunter DonisSURGICAL PATHOLOGY [id number] 16:54:23* Test Item Value Reference Range Interpretation Comme nts DIAGNOSIS: (test code = 8200) (NOTE) A) Conization (L EEP) - EctocervixAcute and chronic cervicitis with prior procedure site changes;no residual dysplasia identified (see Comment) B) Biopsy - EndocervixBenign endocervical mucosa COMMENTS: (test code = 8205) (NOTE) The patient has a history of high-grade squamous intraepitheliallesion (see [id number]). the prior case was reviewed and thediagnoses confirmed. The current case shows mixed inflammationwith reactive changes suggesting prior procedure sites. Multipleadditional levels from each block were evaluated with d62remainiamkbugvcqvjr stains, but no residual dysplasia and nomalignancy [...] A. These stains show no increase in s50kpkabexr. B) The sections show benign endocervical mucosa [...] Garnica. Specimens processed at [facility], [address] [place] [address], , CLIA: [id number] interpreted at [facility], [address] [place] [address],Pathology Department [place], [facility] [place] [address], , CLIA: [id number] DISCLAIMER (test code = 53647) (NOTE) IHC antibodies a re interpreted in the presence of appropriatelyfunctioning controls unless otherwise noted. CPT: (test code = 8400) (NOTE) 91788, 65984, 88 342 UNLESS OTHERWISE INDICATED, ALL TESTING PERFORMED [facility] PATHOLOGY [employer] [address] [place] [address] [employer] REAL ESTATE ASSOCIATE: RAÚL FLOREZ M.D. CLIA NUMBER [id number] [facility] [place]. [id number] SURGICAL PATHOLOGY [id number] 00:00:00* Test Item Value Reference Range Interpretation Comme nts DIAGNOSIS: (test code = 8200) (NOTE) COMMENTS: (test code = 8205) (NOTE) MICROSCOPIC DESCRIPTION: (te st code = 8210) (NOTE) CLINICAL DATA: (test code = 8401) (NOTE) GROSS DESCRIPTION: (test code = 8220) (NOTE) PATHOLOGIST: (test code = 8250) (NOTE) DISCLAIMER (test code = 32036) (NOTE) CPT: (test code = 8400) (NOTE) Hunter Debbie AustinSURGICAL PATHOLOGY [id number] 00:00:00* Test Item Value Reference Range Interpretation Comme nts DIAGNOSIS: (test code = 8200) (NOTE) COMMENTS: (test code = 8205) (NOTE) MICROSCOPIC DESCRIPTION: (te st code = 8210) (NOTE) CLINICAL DATA: (test code = 8401) (NOTE) GROSS DESCRIPTION: (test code = 8220) (NOTE) PATHOLOGIST: (test code = 8250) (NOTE) DISCLAIMER (test code = 96722) (NOTE) CPT: (test code = 8400) (NOTE) Hunter Debbie AustinSURGICAL PATHOLOGY [id number] 00:00:00* Test Item Value Reference Range Interpretation Comme nts DIAGNOSIS: (test code = 8200) (NOTE) COMMENTS: (test code = 8205) (NOTE) MICROSCOPIC DESCRIPTION: (te st code = 8210) (NOTE) CLINICAL DATA: (test code = 8401) (NOTE) GROSS DESCRIPTION: (test code = 8220) (NOTE) PATHOLOGIST: (test code = 8250) (NOTE) DISCLAIMER (test code = 59263) (NOTE) CPT: (test code = 8400) (NOTE) Hunter Debbie AustinSURGICAL PATHOLOGY [id number] 00:00:00* Test Item Value Reference Range Interpretation Comme nts DIAGNOSIS: (test code = 8200) (NOTE) COMMENTS: (test code = 8205) (NOTE) MICROSCOPIC DESCRIPTION: (te st code = 8210) (NOTE) CLINICAL DATA: (test code = 8401) (NOTE) GROSS DESCRIPTION: (test code = 8220) (NOTE) PATHOLOGIST: (test code = 8250) (NOTE) DISCLAIMER (test code = 87363) (NOTE) CPT: (test code = 8400) (NOTE) Hunter Lewis AustinSURGICAL PATHOLOGY [id number] 00:00:00* Test Item Value Reference Range Interpretation Comme nts DIAGNOSIS: (test code = 8200) (NOTE) COMMENTS: (test code = 8205) (NOTE) MICROSCOPIC DESCRIPTION: (te st code = 8210) (NOTE) CLINICAL DATA: (test code = 8401) (NOTE) GROSS DESCRIPTION: (test code = 8220) (NOTE) PATHOLOGIST: (test code = 8250) (NOTE) DISCLAIMER (test code = 58425) (NOTE) CPT: (test code = 8400) (NOTE) Hunter Lewis ScandiaSURGICAL PATHOLOGY [id number] 00:00:00* Test Item Value Reference Range Interpretation Comme nts DIAGNOSIS: (test code = 8200) (NOTE) COMMENTS: (test code = 8205) (NOTE) MICROSCOPIC DESCRIPTION: (te st code = 8210) (NOTE) CLINICAL DATA: (test code = 8401) (NOTE) GROSS DESCRIPTION: (test code = 8220) (NOTE) PATHOLOGIST: (test code = 8250) (NOTE) DISCLAIMER (test code = 02637) (NOTE) CPT: (test code = 8400) (NOTE) Hunter Lewis ScandiaSURGICAL PATHOLOGY [id number] 00:00:00* Test Item Value Reference Range Interpretation Comme nts DIAGNOSIS: (test code = 8200) (NOTE) COMMENTS: (test code = 8205) (NOTE) MICROSCOPIC DESCRIPTION: (te st code = 8210) (NOTE) CLINICAL DATA: (test code = 8401) (NOTE) GROSS DESCRIPTION: (test code = 8220) (NOTE) PATHOLOGIST: (test code = 8250) (NOTE) DISCLAIMER (test code = 93879) (NOTE) CPT: (test code = 8400) (NOTE) Hunter Lewis AustinSURGICAL PATHOLOGY [id number] 00:00:00* Test Item Value Reference Range Interpretation Comme nts DIAGNOSIS: (test code = 8200) (NOTE) COMMENTS: (test code = 8205) (NOTE) MICROSCOPIC DESCRIPTION: (te st code = 8210) (NOTE) CLINICAL DATA: (test code = 8401) (NOTE) GROSS DESCRIPTION: (test code = 8220) (NOTE) PATHOLOGIST: (test code = 8250) (NOTE) DISCLAIMER (test code = 32945) (NOTE) CPT: (test code = 8400) (NOTE) Hunter Lewis AustinSURGICAL PATHOLOGY [id number] 00:00:00* Test Item Value Reference Range Interpretation Comme nts DIAGNOSIS: (test code = 8200) (NOTE) COMMENTS: (test code = 8205) (NOTE) MICROSCOPIC DESCRIPTION: (te st code = 8210) (NOTE) CLINICAL DATA: (test code = 8401) (NOTE) GROSS DESCRIPTION: (test code = 8220) (NOTE) PATHOLOGIST: (test code = 8250) (NOTE) DISCLAIMER (test code = 69899) (NOTE) CPT: (test code = 8400) (NOTE) Hunter Lewis AustinSURGICAL PATHOLOGY [id number] 00:00:00* Test Item Value Reference Range Interpretation Comme nts DIAGNOSIS: (test code = 8200) (NOTE) COMMENTS: (test code = 8205) (NOTE) MICROSCOPIC DESCRIPTION: (te st code = 8210) (NOTE) CLINICAL DATA: (test code = 8401) (NOTE) GROSS DESCRIPTION: (test code = 8220) (NOTE) PATHOLOGIST: (test code = 8250) (NOTE) CPT: (test code = 8400) (NOTE) Hunter Lewis AustinVAGINAL PATHOGENS DNA [id number] 00:00:00* Test Item Value Reference Range Interpretation Comme nts JCARLOS SPECIES (test code = 96226) NEGATIVE G. VAGINALIS (test code = 85534) NEGATIVE T. VAGINALIS (test code = 71598) NEGATIVE Hunter Lewis AustinSURGICAL PATHOLOGY [id number] 00:00:00* Test Item Value Reference Range Interpretation Comme nts DIAGNOSIS: (test code = 8200) (NOTE) COMMENTS: (test code = 8205) (NOTE) MICROSCOPIC DESCRIPTION: (te st code = 8210) (NOTE) CLINICAL DATA: (test code = 8401) (NOTE) GROSS DESCRIPTION: (test code = 8220) (NOTE) PATHOLOGIST: (test code = 8250) (NOTE) CPT: (test code = 8400) (NOTE) Hunter Lewis AustinVAGINAL PATHOGENS DNA [id number] 00:00:00* Test Item Value Reference Range Interpretation Comme nts JCARLOS SPECIES (test code = ) NEGATIVE G. VAGINALIS (test code = 23745) NEGATIVE T. VAGINALIS (test code = 89310) NEGATIVE Hunter Lewis AustinSURGICAL PATHOLOGY [id number] 00:00:00* Test Item Value Reference Range Interpretation Comme nts DIAGNOSIS: (test code = 8200) (NOTE) COMMENTS: (test code = 8205) (NOTE) MICROSCOPIC DESCRIPTION: (te st code = 8210) (NOTE) CLINICAL DATA: (test code = 8401) (NOTE) GROSS DESCRIPTION: (test code = 8220) (NOTE) PATHOLOGIST: (test code = 8250) (NOTE) CPT: (test code = 8400) (NOTE) Hunter Lewis AustinVAGINAL PATHOGENS DNA [id number] 00:00:00* Test Item Value Reference Range Interpretation Comme nts JCARLOS SPECIES (test code = ) NEGATIVE G. VAGINALIS (test code = 25209) NEGATIVE T. VAGINALIS (test code = 05516) NEGATIVE Hunter Lewis AustinSURGICAL PATHOLOGY [id number] 00:00:00* Test Item Value Reference Range Interpretation Comme nts DIAGNOSIS: (test code = 8200) (NOTE) COMMENTS: (test code = 8205) (NOTE) MICROSCOPIC DESCRIPTION: (te st code = 8210) (NOTE) CLINICAL DATA: (test code = 8401) (NOTE) GROSS DESCRIPTION: (test code = 8220) (NOTE) PATHOLOGIST: (test code = 8250) (NOTE) CPT: (test code = 8400) (NOTE) Hunter Lewis AustinVAGINAL PATHOGENS DNA [id number] 00:00:00* Test Item Value Reference Range Interpretation Comme nts JCARLOS SPECIES (test code = ) NEGATIVE G. VAGINALIS (test code = 85401) NEGATIVE T. VAGINALIS (test code = 00120) NEGATIVE Hunter F AustinSURGICAL PATHOLOGY [id number] 00:00:00* Test Item Value Reference Range Interpretation Comme nts DIAGNOSIS: (test code = 8200) (NOTE) COMMENTS: (test code = 8205) (NOTE) MICROSCOPIC DESCRIPTION: (te st code = 8210) (NOTE) CLINICAL DATA: (test code = 8401) (NOTE) GROSS DESCRIPTION: (test code = 8220) (NOTE) PATHOLOGIST: (test code = 8250) (NOTE) CPT: (test code = 8400) (NOTE) Hunter Lewis AustinVAGINAL PATHOGENS DNA [id number] 00:00:00* Test Item Value Reference Range Interpretation Comme nts JCARLOS SPECIES (test code = 77403) NEGATIVE G. VAGINALIS (test code = 08405) NEGATIVE T. VAGINALIS (test code = 43180) NEGATIVE Hunter Lewis AustinSURGICAL PATHOLOGY [id number] 00:00:00* Test Item Value Reference Range Interpretation Comme nts DIAGNOSIS: (test code = 8200) (NOTE) COMMENTS: (test code = 8205) (NOTE) MICROSCOPIC DESCRIPTION: (te st code = 8210) (NOTE) CLINICAL DATA: (test code = 8401) (NOTE) GROSS DESCRIPTION: (test code = 8220) (NOTE) PATHOLOGIST: (test code = 8250) (NOTE) CPT: (test code = 8400) (NOTE) Hunter Lewis AustinVAGINAL PATHOGENS DNA [id number] 00:00:00* Test Item Value Reference Range Interpretation Comme nts JCARLOS SPECIES (test code = 43415) NEGATIVE G. VAGINALIS (test code = 36634) NEGATIVE T. VAGINALIS (test code = 12283) NEGATIVE Hunter Lewis AustinSURGICAL PATHOLOGY [id number] 00:00:00* Test Item Value Reference Range Interpretation Comme nts DIAGNOSIS: (test code = 8200) (NOTE) COMMENTS: (test code = 8205) (NOTE) MICROSCOPIC DESCRIPTION: (te st code = 8210) (NOTE) CLINICAL DATA: (test code = 8401) (NOTE) GROSS DESCRIPTION: (test code = 8220) (NOTE) PATHOLOGIST: (test code = 8250) (NOTE) CPT: (test code = 8400) (NOTE) [facility] Lewis AustinVAGINAL PATHOGENS DNA [id number] 00:00:00* Test Item Value Reference Range Interpretation Comme nts JCARLOS SPECIES (test code = ) NEGATIVE G. VAGINALIS (test code = 30086) NEGATIVE T. VAGINALIS (test code = 57645) NEGATIVE Hunter DonisVAGINAL PATHOGENS DNA [id number] 00:00:00* Test Item Value Reference Range Interpretation Comme nts JCARLOS SPECIES (test code = ) NEGATIVE G. VAGINALIS (test code = 16061) NEGATIVE T. VAGINALIS (test code = 78240) NEGATIVE Hunter Lewis AustinSURGICAL PATHOLOGY [id number] 00:00:00* Test Item Value Reference Range Interpretation Comme nts DIAGNOSIS: (test code = 8200) (NOTE) COMMENTS: (test code = 8205) (NOTE) MICROSCOPIC DESCRIPTION: (te st code = 8210) (NOTE) CLINICAL DATA: (test code = 8401) (NOTE) GROSS DESCRIPTION: (test code = 8220) (NOTE) PATHOLOGIST: (test code = 8250) (NOTE) CPT: (test code = 8400) (NOTE) Hunter Lewis AustinSURGICAL PATHOLOGY [id number] 00:00:00* Test Item Value Reference Range Interpretation Comme nts DIAGNOSIS: (test code = 8200) (NOTE) COMMENTS: (test code = 8205) (NOTE) MICROSCOPIC DESCRIPTION: (te st code = 8210) (NOTE) CLINICAL DATA: (test code = 8401) (NOTE) GROSS DESCRIPTION: (test code = 8220) (NOTE) PATHOLOGIST: (test code = 8250) (NOTE) CPT: (test code = 8400) (NOTE) Hunter Lewis AustinVAGINAL PATHOGENS DNA [id number] 00:00:00* Test Item Value Reference Range Interpretation Comme nts JCARLOS SPECIES (test code = ) NEGATIVE G. VAGINALIS (test code = 30586) NEGATIVE T. VAGINALIS (test code = 34972) NEGATIVE Hunter DonisPAP TEST, THINPREP, [id number] 00:00:00* Test Item Value Reference Range Interpretation Comme nts SOURCE: (test code = 8001) Endocervical SLIDES: (test code = 8011) 1 LMP: (test code = 8021) 02/05/2021 SPECIMEN ADEQUACY: (test code = 58018) (NOTE) INTERPRETATION: (test code = 83503) HSIL/EPITH. ABNORMALITY; SEE BELOW OTHER COMMENTS: (test code = 8081) (NOTE) CHEESE SPRAYER: (test code = 8101) ANTONIO Workman(ASCP) [facility] PATHOLOGIST INTERPRETATION BY: (test code = 8122) Joanna Bellamy M.D. LOCATION: (test code = 14150) (NOTE) CPT: (test code = 8140) (NOTE) Hunter Debbie StephanieP TEST, THINPREP, [id number] 00:00:00* Test Item Value Reference Range Interpretation Comme nts SOURCE: (test code = 8001) Endocervical SLIDES: (test code = 8011) 1 LMP: (test code = 8021) 02/05/2021 SPECIMEN ADEQUACY: (test code = 56143) (NOTE) INTERPRETATION: (test code = 47709) HSIL/EPITH. ABNORMALITY; SEE BELOW OTHER COMMENTS: (test code = 8081) (NOTE) CHEESE SPRAYER: (test code = 8101) ANTONIO Workman(ASCP) [facility] PATHOLOGIST INTERPRETATION BY: (test code = 8122) Joanna Bellamy M.D. LOCATION: (test code = 73224) (NOTE) CPT: (test code = 8140) (NOTE) Hunter Debbie Enrique TEST, THINPREP, [id number] 00:00:00* Test Item Value Reference Range Interpretation Comme nts SOURCE: (test code = 8001) Endocervical SLIDES: (test code = 8011) 1 LMP: (test code = 8021) 02/05/2021 SPECIMEN ADEQUACY: (test code = 70536) (NOTE) INTERPRETATION: (test code = 70242) HSIL/EPITH. ABNORMALITY; SEE BELOW OTHER COMMENTS: (test code = 8081) (NOTE) CHEESE SPRAYER: (test code = 8101) ANTONIO Workman(ASCP) [facility] PATHOLOGIST INTERPRETATION BY: (test code = 8122) Joanna Bellamy M.D. LOCATION: (test code = 99092) (NOTE) CPT: (test code = 8140) (NOTE) Hunter Debbie Enrique TEST, THINPREP, [id number] 00:00:00* Test Item Value Reference Range Interpretation Comme nts SOURCE: (test code = 8001) Endocervical SLIDES: (test code = 8011) 1 LMP: (test code = 8021) 02/05/2021 SPECIMEN ADEQUACY: (test code = 92235) (NOTE) INTERPRETATION: (test code = 19726) HSIL/EPITH. ABNORMALITY; SEE BELOW OTHER COMMENTS: (test code = 8081) (NOTE) CHEESE SPRAYER: (test code = 8101) ANTONIO Workman(ASCP) [facility] PATHOLOGIST INTERPRETATION BY: (test code = 8122) Joanna Bellamy M.D. LOCATION: (test code = 60523) (NOTE) CPT: (test code = 8140) (NOTE) Hunter Debbie StephanieP TEST, THINPREP, [id number] 00:00:00* Test Item Value Reference Range Interpretation Comme nts SOURCE: (test code = 8001) Endocervical SLIDES: (test code = 8011) 1 LMP: (test code = 8021) 02/05/2021 SPECIMEN ADEQUACY: (test code = 28522) (NOTE) INTERPRETATION: (test code = 80375) HSIL/EPITH. ABNORMALITY; SEE BELOW OTHER COMMENTS: (test code = 8081) (NOTE) CHEESE SPRAYER: (test code = 8101) ANTONIO Workman(ASCP) [facility] PATH[facility]IST INTERPRETATION BY: (test code = 8122) Joanna Bellamy M.D. LOCATION: (test code = [facility], 1928–1983) (NOTE) CPT: (test code = 8140) (NOTE) Hunter Debbie StephanieP TEST, THINPREP, [id number] 00:00:00* Test Item Value Reference Range Interpretation Comme nts SOURCE: (test code = 8001) Endocervical SLIDES: (test code = 8011) 1 LMP: (test code = 8021) 02/05/2021 SPECIMEN ADEQUACY: (test code = 45921) (NOTE) INTERPRETATION: (test code = 10849) HSIL/EPITH. ABNORMALITY; SEE BELOW OTHER COMMENTS: (test code = 8081) (NOTE) CHEESE SPRAYER: (test code = 8101) ANTONIO Workman(ASCP) [facility] PATH[facility] INTERPRETATION BY: (test code = 8122) Joanna Bellamy M.D. LOCATION: (test code = 43750) (NOTE) CPT: (test code = 8140) (NOTE) Hunter BrownP TEST, THINPREP, [id number] 00:00:00* Test Item Value Reference Range Interpretation Comme nts SOURCE: (test code = 8001) Endocervical SLIDES: (test code = 8011) 1 LMP: (test code = 8021) 02/05/2021 SPECIMEN ADEQUACY: (test code = 58355) (NOTE) INTERPRETATION: (test code = 34810) HSIL/EPITH. ABNORMALITY; SEE BELOW OTHER COMMENTS: (test code = 8081) (NOTE) CHEESE SPRAYER: (test code = 8101) ANTONIO Workman(ASCP) [facility] PATHOLOGIST INTERPRETATION BY: (test code = 8122) Joanna Bellamy M.D. LOCATION: (test code = 57948) (NOTE) CPT: (test code = 8140) (NOTE) Hunter Lewis StephanieP TEST, THINPREP, [id number] 00:00:00* Test Item Value Reference Range Interpretation Comme nts SOURCE: (test code = 8001) Endocervical SLIDES: (test code = 8011) 1 LMP: (test code = 8021) 02/05/2021 SPECIMEN ADEQUACY: (test code = 60073) (NOTE) INTERPRETATION: (test code = 00634) HSIL/EPITH. ABNORMALITY; SEE BELOW OTHER COMMENTS: (test code = 8081) (NOTE) CHEESE SPRAYER: (test code = 8101) ANTONIO Workman(ASCP) [facility] PATHOLOGIST INTERPRETATION BY: (test code = 8122) Joanna Bellamy M.D. LOCATION: (test code = 86614) (NOTE) CPT: (test code = 8140) (NOTE) Hunter BrownP TEST, THINPREP, [id number] 00:00:00* Test Item Value Reference Range Interpretation Comme nts SOURCE: (test code = 8001) Endocervical SLIDES: (test code = 8011) 1 LMP: (test code = 8021) 02/05/2021 SPECIMEN ADEQUACY: (test code = 01265) (NOTE) INTERPRETATION: (test code = 65821) HSIL/EPITH. ABNORMALITY; SEE BELOW OTHER COMMENTS: (test code = 8081) (NOTE) CHEESE SPRAYER: (test code = 8101) ANTONIO Workman(ASCP) [facility] PATHOLOGIST INTERPRETATION BY: (test code = 8122) Joanna Bellamy M.D. LOCATION: (test code = 36659) (NOTE) CPT: (test code = 8140) (NOTE) Hunter Lewis AustinVAGINAL PATHOGENS DNA [id number] 00:00:00* Test Item Value Reference Range Interpretation Comme nts JCARLOS SPECIES (test code = ) NEGATIVE G. VAGINALIS (test code = 13593) POSITIVE T. VAGINALIS (test code = 15345) NEGATIVE Hunter Lewis AustinHPV HIGH RISK WITH GENOTYPE, [id number] 00:00:00* Test Item Value Reference Range Interpretation Comme nts HPV HIGH RISK INTERP (test c ode = 28798) POSITIVE HPV 16 (test code = 28596) POSITIVE HPV 18 (test code = 42859) NEGATIVE HPV, HR, OTHER GENOTYPES (te st code = 12247) NEGATIVE Hunter Lewis AustinVAGINAL PATHOGENS DNA [id number] 00:00:00* Test Item Value Reference Range Interpretation Comme nts JCARLOS SPECIES (test code = ) NEGATIVE G. VAGINALIS (test code = 85667) POSITIVE T. VAGINALIS (test code = 49696) NEGATIVE Hunter Lewis AustinHPV HIGH RISK WITH GENOTYPE, [id number] 00:00:00* Test Item Value Reference Range Interpretation Comme nts HPV HIGH RISK INTERP (test c ode = 65800) POSITIVE HPV 16 (test code = 61761) POSITIVE HPV 18 (test code = 45787) NEGATIVE HPV, HR, OTHER GENOTYPES (te st code = 06333) NEGATIVE Hunter F AustinVAGINAL PATHOGENS DNA [id number] 00:00:00* Test Item Value Reference Range Interpretation Comme nts JCARLOS SPECIES (test code = 67458) NEGATIVE G. VAGINALIS (test code = 44049) POSITIVE T. VAGINALIS (test code = 93813) NEGATIVE Hunter Lewis AustinHPV HIGH RISK WITH GENOTYPE, [id number] 00:00:00* Test Item Value Reference Range Interpretation Comme nts HPV HIGH RISK INTERP (test c ode = 34692) POSITIVE HPV 16 (test code = 52198) POSITIVE HPV 18 (test code = 10849) NEGATIVE HPV, HR, OTHER GENOTYPES (te st code = 14626) NEGATIVE Hunter Lewis AustinVAGINAL PATHOGENS DNA [id number] 00:00:00* Test Item Value Reference Range Interpretation Comme nts JCARLOS SPECIES (test code = ) NEGATIVE G. VAGINALIS (test code = 19981) POSITIVE T. VAGINALIS (test code = 96451) NEGATIVE Hunter Lewis AustinHPV HIGH RISK WITH GENOTYPE, [id number] 00:00:00* Test Item Value Reference Range Interpretation Comme nts HPV HIGH RISK INTERP (test c ode = 19907) POSITIVE HPV 16 (test code = 28313) POSITIVE HPV 18 (test code = 65874) NEGATIVE HPV, HR, OTHER GENOTYPES (te st code = 16904) NEGATIVE Hunter Lewis AustinVAGINAL PATHOGENS DNA [id number] 00:00:00* Test Item Value Reference Range Interpretation Comme nts JCARLOS SPECIES (test code = ) NEGATIVE G. VAGINALIS (test code = 00701) POSITIVE T. VAGINALIS (test code = ) NEGATIVE Hunter Lewis AustinHPV HIGH RISK WITH GENOTYPE, [id number] 00:00:00* Test Item Value Reference Range Interpretation Comme nts HPV HIGH RISK INTERP (test c ode = 72085) POSITIVE HPV 16 (test code = 52347) POSITIVE HPV 18 (test code = 22141) NEGATIVE HPV, HR, OTHER GENOTYPES (te st code = 74978) NEGATIVE Hunter Lewis AustinVAGINAL PATHOGENS DNA [id number] 00:00:00* Test Item Value Reference Range Interpretation Comme nts JCARLOS SPECIES (test code = ) NEGATIVE G. VAGINALIS (test code = 66566) POSITIVE T. VAGINALIS (test code = 43856) NEGATIVE Hunter Lewis AustinHPV HIGH RISK WITH GENOTYPE, [id number] 00:00:00* Test Item Value Reference Range Interpretation Comme nts HPV HIGH RISK INTERP (test c ode = 57279) POSITIVE HPV 16 (test code = 89507) POSITIVE HPV 18 (test code = 06734) NEGATIVE HPV, HR, OTHER GENOTYPES (te st code = 63488) NEGATIVE Hunter DonisVAGINAL PATHOGENS DNA [id number] 00:00:00* Test Item Value Reference Range Interpretation Comme nts JCARLOS SPECIES (test code = ) NEGATIVE G. VAGINALIS (test code = 92147) POSITIVE T. VAGINALIS (test code = 80944) NEGATIVE Hunter Lewis AustinHPV HIGH RISK WITH GENOTYPE, [id number] 00:00:00* Test Item Value Reference Range Interpretation Comme nts HPV HIGH RISK INTERP (test c ode = 22368) POSITIVE HPV 16 (test code = 64660) POSITIVE HPV 18 (test code = 13678) NEGATIVE HPV, HR, OTHER GENOTYPES (te st code = 09071) NEGATIVE Hunter DonisVAGINAL PATHOGENS DNA [id number] 00:00:00* Test Item Value Reference Range Interpretation Comme nts JCARLOS SPECIES (test code = ) NEGATIVE G. VAGINALIS (test code = 73096) POSITIVE T. VAGINALIS (test code = 08923) NEGATIVE Hunter DonisHPV HIGH RISK WITH GENOTYPE, [id number] 00:00:00* Test Item Value Reference Range Interpretation Comme nts HPV HIGH RISK INTERP (test c ode = 97540) POSITIVE HPV 16 (test code = 85977) POSITIVE HPV 18 (test code = 04825) NEGATIVE HPV, HR, OTHER GENOTYPES (te st code = 46632) NEGATIVE Hunter DonisVAGINAL PATHOGENS DNA [id number] 00:00:00* Test Item Value Reference Range Interpretation Comme nts JCARLOS SPECIES (test code = ) NEGATIVE G. VAGINALIS (test code = 88548) POSITIVE T. VAGINALIS (test code = 01637) NEGATIVE Hunter DonisHPV HIGH RISK WITH GENOTYPE, [id number] 00:00:00* Test Item Value Reference Range Interpretation Comme nts HPV HIGH RISK INTERP (test c ode = 19517) POSITIVE HPV 16 (test code = 76153) POSITIVE HPV 18 (test code = 29184) NEGATIVE HPV, HR, OTHER GENOTYPES (te st code = 03628) NEGATIVE Hunter Donis Notes Date/Time Note [facility]00 [facility]2024-04-17 00:00:00 [facility]2023-08-10 08:55:32 [id number] 08:29:52 Called left voicemail to contact clinic . Financial screening , wwe and cbe scheduled for [id number] at 9 am. Appointment letter mailed. Daina CosmeL[facility] [id number] 10:30:44 PSS called patient and left v/m for her to call us for scheduling. 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 Isabel DurandLake [facility] [id number] 09:23:11 Daina Morales is a 37 year old female Attempted to call patient, to follow up on Breast imaging appointment, no answer. Left voicemail. Needs FS and CBE appointment Keysha Guevara RNLake [facility] [id number] 00:00:00 [facility]2023-01-31 00:00:00 [facility]2022-12-06 00:00:00 [facility]2022-09-07 00:00:00 [facility]2022-08-23 00:00:00 [facility]
--- NOTE | 2024-09-14 22:04 | ER ---
Nurse's Notes [facility] Name: Daina Ibrahim Age: 39 yrs Sex: Female : 1985 Arrival Date: 09/14/2024 Time: 19:52 Bed IW10 Private MD: Diagnosis: Headache Presentation: 09/14 20:32 Chief complaint: Patient states: Migraine onset in the middle of the night. Pt states cm10 that the pain woke her from her sleep. Pt reports nausea, vomiting and photophobia. Pt states that this migraine is similar to her previous migraines. Coronavirus screen: Client denies travel out of the [place] in the last 14 days. Ebola Screen: Patient denies travel to an Ebola-affected area in the 21 days before illness onset. Initial Sepsis Screen: Does the patient meet any 2 criteria? No. Patient's initial sepsis screen is negative. Does the patient have a suspected source of infection? No. Patient's initial sepsis screen is negative. Risk Assessment: Do you want to hurt yourself or someone else? Patient reports no desire to harm self or others. Onset of symptoms was September 14, 2024. 20:32 Method Of Arrival: Ambulatory cm10 20:32 Acuity: KARO 3 cm10 Triage Assessment: 20:39 Headache History: The patient has had previous headaches and this one is similar to cm10 previous episodes. General: Appears in no apparent distress. uncomfortable, Behavior is calm, cooperative. Neuro: No deficits noted. Level of Consciousness is awake, alert, obeys commands, Oriented to person, place, time, situation, Appropriate for age Reports headache photophobia. Respiratory: No deficits noted. Airway is patent Respiratory effort is even, unlabored, Respiratory pattern is regular, symmetrical. Historical: - Allergies: 20:38 ORANGES; cm10 - PMHx: 20:38 Migraine; cm10 - PSHx: 20:38 section; cm10 - Immunization history:: Adult Immunizations up to date. - Infectious Disease History:: Denies. - Social history:: Smoking status: Patient reports the use of cigarette tobacco products, smokes one-half pack cigarettes per day, Patient uses street drugs, cocaine, marijuana. Assessment: 09/15 01:44 Reassessment:. br2 Vital Signs: 09/14 20:32 BP 129 / 81; Pulse 76; Resp 18; Temp 98.3; Pulse Ox 99% on R/A; Weight 90.72 kg; Height cm10 5 ft. 5 in. ; Pain 10/10; 20:32 Body Mass Index 33.28 (90.72 kg, 165.1 cm) cm10 20:32 Pain Scale: Adult cm10 ED Course: 19:55 Patient arrived in ED. mr 20:34 Maria Elena Morrow MD is Attending Physician. gb1 20:38 Triage completed. cm10 20:39 Arm band placed on right wrist. Patient placed in waiting room. cm10 21:00 Radiology exam delayed due to lab results not completed at this time. (HCG) jc4 (BUN/Creatinine) test not completed at this time. IV insertion attempt and/or patient not having appropriate IV at this time. 21:50 Patient's name was called from ER lobby. No response. ha1 22:18 Radiology exam delayed due to IV insertion attempt and/or patient not having jc4 appropriate IV at this time. Administered Medications: No medications were administered Outcome: 09/15 01:49 Patient left the ED. br2 Signatures: Amelie Burk, Reg Reg mr NicolPratima, RN RN ha1 Alma Delgado RN RN cm10 Maria Elena Morrow MD MD gb1 Patsy Oneal RN RN br2 Ricardo Hayes jc4
--- NOTE | 2024-09-14 22:04 | EDPHYS ---
Physician Documentation [facility] Name: Daina Ibrahim Age: 39 yrs Sex: Female : 1985 Arrival Date: 09/14/2024 Time: 19:52 Bed IW10 Private MD: ED Physician Maria Elena Morrow HPI: 09/14 22:02 This 39 yrs old Female presents to ER via Ambulatory with complaints of gb1 Headache. 22:02 39-year-old female has had a headache since yesterday when she snorted cocaine. She did gb1 2 lines of cocaine at home. She all of a sudden got a very bad headache and started with nausea and vomiting. She denies any fever chills or neck pain.. Historical: - Allergies: 20:38 ORANGES; cm10 - PMHx: 20:38 Migraine; cm10 - PSHx: 20:38 section; cm10 - Immunization history:: Adult Immunizations up to date. - Infectious Disease History:: Denies. - Social history:: Smoking status: Patient reports the use of cigarette tobacco products, smokes one-half pack cigarettes per day, Patient uses street drugs, cocaine, marijuana. Exam: 22:02 Constitutional: This is a well developed, well nourished patient who is awake, alert, gb1 and in no acute distress. Patient is diaphoretic Head/Face: Normocephalic, atraumatic. Eyes: Pupils equal round and reactive to light, extra-ocular motions intact. Lids and lashes normal. Conjunctiva and sclera are non-icteric and not injected. Cornea within normal limits. Periorbital areas with no swelling, redness, or edema. ENT: Nares patent. No nasal discharge, no septal abnormalities noted. Tympanic membranes are normal and external auditory canals are clear. Oropharynx with no redness, swelling, or masses, exudates, or evidence of obstruction, uvula midline. Mucous membranes moist. Neck: Trachea midline, no thyromegaly or masses palpated, and no cervical lymphadenopathy. Supple, full range of motion without nuchal rigidity, or vertebral point tenderness. No Meningismus. Chest/axilla: Normal chest wall appearance and motion. Nontender with no deformity. No lesions are appreciated. Cardiovascular: Regular rate and rhythm with a normal S1 and S2. No gallops, murmurs, or rubs. Normal PMI, no JVD. No pulse deficits. Respiratory: Lungs have equal breath sounds bilaterally, clear to auscultation and percussion. No rales, rhonchi or wheezes noted. No increased work of breathing, no retractions or nasal flaring. Abdomen/GI: Soft, non-tender, with normal bowel sounds. No distension or tympany. No guarding or rebound. No evidence of tenderness throughout. Skin: Warm, dry with normal turgor. Normal color with no rashes, no lesions, and no evidence of cellulitis. MS/ Extremity: Pulses equal, no cyanosis. Neurovascular intact. Full, normal range of motion. Vital Signs: 20:32 BP 129 / 81; Pulse 76; Resp 18; Temp 98.3; Pulse Ox 99% on R/A; Weight 90.72 kg; Height cm10 5 ft. 5 in. ; Pain 10/10; 20:32 Body Mass Index 33.28 (90.72 kg, 165.1 cm) cm10 20:32 Pain Scale: Adult cm10 MDM: 20:39 Medical Screening Exam initiated gb 22:02 Data reviewed: vital signs, nurses notes. ED course: 39-year-old female with sudden gb1 onset headache after illicit cocaine use yesterday. Patient's headache started and it was first, was worst and sudden maximal onset. Is different from her regular migraine headaches. Patient eloped from the lobby and did not get labs or imaging of her head. I did discuss with her the concern for an aneurysmal head bleed that would result in a subarachnoid hemorrhage. I was alerted by the triage nursing team that the patient was no longer to be found in the lobby.. 09/14 20:49 Order name: Cardiac monitoring gb09/14 20:49 Order name: EKG - Nurse/Tech 09/14 20:49 Order name: IV Saline Lock 09/14 20:49 Order name: Labs collected and sent 09/14 20:49 Order name: O2 Per Protocol 09/14 20:49 Order name: O2 Sat Monitoring gb1 Administered Medications: No medications were administered Disposition Summary: 09/14/24 22:04 Eloped Notes: Disposition: before being seen by provider gb1 Reason: unknown gb1 Condition: Serious gb1 Diagnosis - Headache gb1 Signatures: Dispatcher [employer] EDMS Alma Delgado RN RN cm10 Maria Elena Morrow MD MD gb1 Corrections: (The following items were deleted from the chart) 22:20 20:50 Head Angio+CT.RAD.BRZ ordered. EDMS EDMS
[2024-09-15 01:55] VITALS: BP 129/81; TEMP 98.3; O2SAT 99
== END 2024-09-15 01:49 | disposition left against medical advice (07) ==
LOC: ER 19:52
DX: Z53.21 Procedure and treatment not carried out due to patient leaving prior to being seen by health care provider (principal)
CPT/HCPCS: 99281